=== PATIENT | female | born 1940 | race Caucasian/White ===

== ENCOUNTER 2016-05-23 10:51 | Inpatient (IN) | payer OTHER ==
[~2016-05-23] VITALS: Ht 147.3 cm; Wt 59.9 kg
[~2016-05-23 10:51] MED LIST: ALBUTEROL 3 ML3 ML INH; ANTIVERT 12.512.5 MG PO; APAP500 MG PO; ATIVAN0.5 M1 PO; ATROVENT 0.02%2.5 ML INH; BENZONATATE100 M1 PO; BREO ELLIPTA1 POW INH; CARDIZEM 180 M180 MG PO; CARDIZEM CD240 M1 PO; COLACE100 M1 PO; CRESTOR 5MG5 MG PO; DILTIAZEM HCL180 MG PO; DILTIAZEM HCL240 MG PO; DILTIAZEM HCL300 MG PO; DUONEB 3 MG/3 ML3 ML INH/SOL; FUROSEMIDE20 MG PO; HYDRODIURIL 112.5 MG PO; LORAZEPAM1 M1 PO; MECLIZINE HCL12.5 M1 PO; MIRALAX17 GM PO; ONE DAILY MULT1 EAC2 PO; PANTOPRAZOLE SO40 MG PO; PREDNISONE 10MG10 M1 PO; PREDNISONE 2.52.5 MG PO; PREDNISONE10 MG PO; PREDNISONE2.5 M1 PO; PREDNISONE2.5 MG PO; PREDNISONE5 MG PO; PRILOSEC 20MG C20 MG PO; PROVENTIL0.09 MG/Ac INH; SENNA-DOCUSATE1 EACH PO; SYMBICORT 16010.2 GM INH; TYLENOL XSTR500 MG PO; VITAMIN D NATU400 IU PO; VITAMIN D1000 IU PO; Vitamin D PO; ZOFRAN 4 MG TABL4 MG PO
--- NOTE | 2016-05-23 11:00 | NUR ---
PT BIBA FROM HOME FOR C/O DYSPNEA. PT STATES SHE HAS BEEN ON ABX SINCE MONDAY. PT STATES SHE DID NOT SLEEP ALL NIGHT BECAUSE SHE TOOK 10 BREATHING TREATMENTS. PT SAT WAS 86% UPON EMS ARRIVAL. PT WAS GIVEN NEB TREATMENT 125MG OF SOLUMEDROL AND THEN SHE BEGAN TO HAVE NAUSEA. PT WAS GIVEN ZOFRAN IV. PT HAS MAG INFUSING BY EMS.
--- NOTE | 2016-05-23 11:00 | NUR ---
PT STATES SHE IS 1 DEPENDANT USES 2.5L VIA NC PT CURRENTLY ON NC 3L SATS 95%
--- NOTE | 2016-05-23 11:07 | ED DYSPNEA/ASTHMA COMPLAINT ---
History of Present Illness General Chief Complaint: Dyspnea (COPD, CHF, Other) Stated Complaint: SOB Source: patient, family, old records, EMS Exam Limitations: no limitations Allergies Coded Allergies: Iodinated Contrast Media - Oral and (IODINATED CONTRAST MEDIA - IV DYE) ( Intermediate, HIVES, RASH 04/27/15) Penicillins (Intermediate, HIVES 04/27/15) Sulfa (Sulfonamide Antibiotics) (Intermediate, HIVES 04/27/15) methylprednisolone (Mild, "TOO MANY SIDE EFFECTS, HIGH SUGAR, LOOSE TEETH, NECK BONES" 04/27/15) Triage Note: PT BIBA FROM HOME FOR C/O DYSPNEA. PT STATES SHE HAS BEEN ON ABX SINCE MONDAY. PT STATES SHE DID NOT SLEEP ALL NIGHT BECAUSE SHE TOOK 10 BREATHING TREATMENTS. PT SAT WAS 86% UPON EMS ARRIVAL. PT WAS GIVEN NEB TREATMENT 125MG OF SOLUMEDROL AND THEN SHE BEGAN TO HAVE NAUSEA. PT WAS GIVEN ZOFRAN IV. PT HAS MAG INFUSING BY EMS. Triage Nurses Notes Reviewed? yes Onset: Abrupt Duration: day(s): (3), constant, getting worse Timing: recent history Severity: moderate, severe Activities at Onset: none Prior Episodes/Possible Cause: frequent episodes Modifying Factors: Worsens With: movement. Associated Symptoms: cough HPI: 76-year-old female with history of COPD on 2-1/2 L at baseline presents to ER brought in by ambulance complaining of progressively worsening shortness of breath nonproductive cough for the past 3 days. The patient was started on azithromycin and prednisone 4 days ago however she states her symptoms have been getting worse, she's had to increase her oxygen to 3 L at rest. She denies any chest pain leg swelling fever chills the patient states that she took 10 albuterol treatments this morning without improvement. The patient was administered Solu-Medrol 125 IV in route by EMS (DAMIAN SANTILLAN) Vital Signs & Intake/Output Vital Signs & Intake/Output Vital Signs Date Time Temp Pulse Resp B/P Pulse O2 O2 Flow FiO2 Ox Delivery Rate 05/23 1640 Nasal 3.0L Cannula 05/23 1545 94 Nasal 4.0L Cannula 05/23 1545 99.0 96 20 109/60 04 Nasal 4.0L Cannula 05/23 1459 98 Nasal 4.0L Cannula 05/23 1259 98.9 109 18 118/65 90 Nasal 4.0L Cannula 05/23 1213 93 Nasal 3.0L Cannula 05/23 1109 99.5 110 20 128/72 91 Nasal 3.0L Cannula 05/23 1057 98.0 22 97 Nasal 4.0L Cannula Reconcile Medications Azithromycin 250 MG TABLET 1 DP PO DAILY ANTIBIOTIC, INFECTION (Reported) 2 the first day followed by 1 for days 2-5 Benzonatate 100 MG CAPSULE 1 CAP PO BIDP PRN COUGH (Reported) Budesonide/Formoterol Fumarate (Symbicort 160-4.5 Mcg Inhaler) 160 MCG-4.5 MCG/ ACTUATION HFA.AER.AD 2 PUF INH BID COPD (Reported) Diltiazem HCl 30 MG TABLET 1 TAB PO DAILY PRN HEART (Reported) Diltiazem HCl (Cardizem Cd) 240 MG CAP.ER.24H 1 CAP PO DAILY HEART (Reported) Docusate Sodium (Colace) 100 MG CAPSULE 1 CAP PO QPM CONSTIPATION (Reported) Ergocalciferol (Vitamin D2) (Vitamin D2) 50,000 UNIT CAPSULE 1 CAP PO QW SUPPLEMENT (Reported) Furosemide 20 MG TABLET 1 TAB PO DAILY PRN WATER PILL (Reported) Ipratropium/Albuterol Sulfate (Iprat-Albut 0.5-3(2.5) MG/3 Ml) 0.5 MG-3 MG (2.5 MG BASE)/3 ML AMPUL.NEB 1 INH PO 4 TIMES/DAY BREATHING PROBLEMS (Reported) Lorazepam 1 MG TABLET 1 TAB PO QPM SLEEP (Reported) Lorazepam (Ativan) 0.5 MG TABLET 1 TAB PO BIDP PRN ANXIETY (Reported) Meclizine HCl 12.5 MG TABLET 1 TAB PO BID DIZZINESS (Reported) Montelukast Sodium (Singulair) 10 MG TABLET 1 TAB PO DAILY ALLERGIES ( Reported) Multivitamin (One Daily Multivitamin) 1 EACH TABLET 1 TAB PO DAILY SUPPLEMENT (Reported) Omeprazole 20 MG CAPSULE.DR 1 CAP PO DAILY PRN ACID (Reported) Polyethylene Glycol 3350 (Miralax) 17 GRAM POWD.PACK 1 PAC PO DAILY PRN CONSTIPATION (Reported) dissolve in water Prednisone 2.5 MG TABLET 1 TAB PO DAILY COPD (Reported) Sennosides/Docusate Sodium (Senna-Docusate Sodium Tablet) 8.6 MG-50 MG TABLET 1 TAB PO QPM CONSTIPATION (Reported) (NICO HOWARD,HARSHAD Up) Past History Travel History Traveled to [place] past 21 day No Medical History Any Pertinent Medical History? 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 No (DAMIAN SANTILLAN) Review of Systems Review of Systems Constitutional: Reports: see HPI. All Other Systems: Reviewed and Negative Comments Review of systems: See HPI, All other systems negative. Constitutional, no chills no fever, no malaise HEENT: No visual changes no sore throat no congestion, no ear pain Cardiovascular: No chest pain , no palpitation Skin, no jaundice no rashes, no change in skin Respiratory: dyspnea cough no sputum GI: No nausea no vomiting, no diarrhea, : No dysuria Muscle skeletal: No joint pain, no back pain, no neck pain, Neurologic: No numbness no headache Psych: No stress. Heme/endocrine: No bruising no bleeding Immunology: No lymphadenopathy, (DAMIAN SANTILLAN) Physical Exam Physical Exam General Appearance: alert, awake, moderate distress Respiratory: wheezing, respiratory distress Comments: HEENT: Normal EENT exam; PERRL, EOMI, HEAD is atraumatic. moist mucous membranes. Neck: Supple, no lymphadenopathy, normal range of motion Back: Nontender, Full range of motion Cardiovascular: Regular rate and rhythms no murmurs rubs or gallops, normal JVP Respiratory: Moderate respiratory distress. Patient speaking in full complete sentences. Wheezing bilaterally no rales Abdomen: Soft, nontender nondistended, no appreciable organomegaly. Normal bowel sounds. No rebound/guarding, Extremity: No edema, full range of motion of extremities Neuro: Alert oriented x3, motor sensory normal, There were no obvious focal neurologic abnormalities. Skin: No appreciable rash on exposed skin, skin is warm and dry. Psych: Mood and affect is normal, memory and judgment is normal. Core Measures ACS in differential dx? Yes Severe Sepsis Present: No Septic Shock Present: No (DAMIAN SANTILLAN) Progress Differential Diagnosis: asthma, AMI, bronchitis, costochondritis, CHF, COPD, musculoskeletal pain, pericarditis, pulmonary embolism, pneumonia, pneumothorax, unstable angina Diagnostic Imaging: Viewed by Me: Radiology Read. Discussed w/RAD: Radiology Read. Initial ED EKG: sinus tach at 100, no acute ST segment changes normal axis Prior EKG: unchanged (01/2015) Rhythm Strip: normal sinus rhythm (DAMIAN SANTILLAN) Plan of Care: Orders Procedure Date/time Status Regular Diet 05/23 D Active Vital Signs 05/23 1639 Active Teach/Educate 05/23 1639 Active Pain Treatment and Response 05/23 1639 Active Nutritional Intake, Monitor 05/23 1639 Active Isolation 05/23 1639 Active Intake & Output 05/23 1639 Active Patient Care Conference 05/23 1639 Active Activity/Ambulation 05/23 1639 Active TRC EVALUATION (GEN) 05/23 1441 Active STREP PNEUMO URINARY ANTIGEN 05/23 1403 Active LEGIONELLA URINARY ANTIGEN 05/23 1403 Active LOWER RESPIRATORY CULTURE 05/23 1403 Active Pathway - chart 05/23 1358 Active House Staff 05/23 1358 Active Patient Data 05/23 1358 Active Code Status 05/23 1358 Active Admit to inpatient 05/23 1323 Active Patient Data 05/23 1311 Active BLOOD CULTURE 05/23 1304 Active Intake & Output 05/23 1140 Active EKG 05/23 1127 Active RAPID VIRAL INFLUENZA A 05/23 1113 Complete ARTERIAL BLOOD GAS (GEN) 05/23 1106 Complete Telemetry/Lunchroom Aide 05/23 1106 Active TROPONIN LEVEL 05/23 1106 Complete MAGNESIUM 05/23 1106 Complete COMPREHENSIVE METABOLIC PANEL 05/23 1106 Complete CBC WITHOUT DIFFERENTIAL 05/23 1106 Complete B-TYPE NATRIURETIC PEP (BNP) 05/23 1106 Complete VTE Mechanical Prophylaxis 05/23 UNK Active Current Medications Sig/Bill Start time Last Medication Dose Stop Time Status Admin Azithromycin 500 MG DAILY 05/24 1000 AC (Zithromax) Sodium Chloride 250 ML (Normal Saline 0.9%) Ceftriaxone Sodium 1,000 MG DAILY 05/24 1000 AC (Rocephin) Methylprednisolone 40 MG BID 05/23 2199 AC (Solumedrol) Acetaminophen 325 MG Q6 PRN 05/23 1400 AC (Tylenol) Morphine Sulfate 4 MG Q4P PRN 05/23 1400 AC (Morphine) Oxycodone/ 1 TAB Q6 PRN 05/23 1400 AC Acetaminophen (Percocet) Laboratory Tests 05/23/16 1155: pH 7.33 L, pCO2 61 *H, pO2 90, HCO3 31 H, ABG O2 Sat (Measured) 95.0 L, Carboxyhemoglobin 1.2 L, O2 Concentration % 3L, O2 Delivery Method NC, Phlebotomy Draw Site RIGHT BRACHIAL 05/23/16 1125: Anion Gap 7, Estimated GFR > 60, BUN/Creatinine Ratio 16.7, Glucose 160 H, Calcium 9.2, Magnesium 2.4 H, Total Bilirubin 0.6, AST 20, ALT 38, Alkaline Phosphatase 87, Troponin I < 0.01, Mqq-F-Fptqiuygykq Pept 205 H, Total Protein 6.6, Albumin 4.0, Globulin 2.6, Albumin/Globulin Ratio 1.5, CBC w Diff NO MAN DIFF REQ, RBC 5.40, MCV 81.8, MCH 26.7 L, RDW 14.4, MPV 7.5, Gran % 82.6 H, Lymphocytes % 14.7 L, Monocytes % 2.1, Eosinophils % 0.4, Basophils % 0.2, Absolute Granulocytes 8.0 H, Absolute Lymphocytes 1.4, Absolute Monocytes 0.2, Absolute Eosinophils 0, Absolute Basophils 0, PUBS MCHC 32.6 L Microbiology 05/23 1403 URINE ROUT: Legionella Antigen - ORD 05/23 140 URINE ROUT: Streptococcus pneumoniae Antigen (M - ORD 05/23 1403 LOWER RESP: Respiratory Culture - ORD 05/23 140 LOWER RESP: Gram Stain - ORD 05/23 1307 BLOOD: Blood Culture - RECD 05/23 1300 BLOOD: Blood Culture - RECD 05/23 1125 NASOPHARYN: Influenza Virus A & B Rapid Smear - COMP Labs ordered old records reviewed patient is medicated with Solu-Medrol 125 IV in route, magnesium drip running which was given en route, douneb abg ordered. pt eval by dr pandya agrees wtih plan for bipap- pt and her daughter refusing at this time stating her co2 has been higher- most recently at [facility] feb 2016 never required in past. case d/w dr pierson pts pulm who advised can hold off bipap at this time. d/w pt and daughter her xray results rocephin 1g azithro 500mg iv ordered will admit PATIENT: PANKAJ MORALES PRESENT AGE: 76 PATIENT ACCOUNT NO: [id number] : 39 LOCATION: [facility] ORDERING PHYSICIAN: DAMIAN SAENZ SERVICE DATE: 05/23/16-110 EXAM TYPE: RAD - XRY-PORTABLE CHEST XRAY EXAMINATION: XR PORTABLE CHEST CLINICAL INFORMATION: Dyspnea COMPARISON: 01/31/2015 TECHNIQUE: Portable AP view of the chest was obtained. FINDINGS: Cardiac leads overlie the chest. Postoperative changes are seen in the right lung with a suture line noted at the right midlung. There is some degree of right-sided volume loss. Blunted right costophrenic angle suggests a small pleural effusion. Hazy opacity seen in the right mid to lower lung. No pneumothorax. The cardiomediastinal silhouette is somewhat shifted to the right, although the patient is rotated which limits overall evaluation. IMPRESSION: Small right pleural effusion. Hazy right mid to lower lung opacity could represent atelectasis or pneumonia. DICTATED BY: JUSTUS BARON MD DATE/TIME DICTATED:05/23/161241 FURNITURE REPAIRER:LEE DATE/TIME TRANSCRIBED:05/23/161241 CONFIDENTIAL, DO NOT COPY WITHOUT APPROPRIATE AUTHORIZATION. <Electronically signed in Other Vendor System> SIGNED BY: JUSTUS BARON MD 05/23 1246 (ELIZABETH SAENZ,DAMIAN) Departure Departure Time of Disposition: 1325 Disposition: STILL A PATIENT Condition: Stable Clinical Impression Primary Impression: COPD exacerbation Secondary Impressions: Hypercapnic respiratory failure, Pneumonia Referrals: DAVIAN PÉREZ MD Departure Forms: Customer Survey General Discharge Information Admission Note Spoke With: ELIAN TOWNSEND MD Documentation of Exam: Documentation of any treatments & extenuating circumstances including Concerns Regarding Discharge (functional status, medication knowledge or non-compliance, living conditions, etc.) that warrant an admission rather than observation: IV steroids and IV antibiotics patient has failed outpatient therapy with both by mouth. Patient is hypoxic despite being on home O2 premature discharge would BE medically harmful (DAMIAN SANTILLAN) PA/TOURIST AGENT Co-Sign Statement Statement: ED Attending supervision documentation- [x] I saw and evaluated the patient. I have also reviewed all the pertinent lab results and diagnostic results. I agree with the findings and the plan of care as documented in the PA's/TOURIST AGENT's documentation. shortness of breath similar to prior episodes. not responding to home nebs. poor air entry and autopeeping on exam. [] I have reviewed the ED Record and agree with the PA's/TOURIST AGENT's documentation. [] Additions or exceptions (if any) to the PAs/TOURIST AGENT's note and plan are summarized below: [] (NICO HOWARD,HARSHAD Up) Critical Care Note Critical Care Note Critical Care Time: 30-74 min (DAMIAN SANTILLAN)
[2016-05-23 11:30] LABS: ABSOLUTE BASOPHIL COUNT 0 /CUMM (0.0-0.2); ABSOLUTE EOSINOPHIL COUNT 0 /CUMM (0.0-0.7); ABSOLUTE LYMPH COUNT 1.4 /CUMM (1.2-3.4); ABSOLUTE MONOCYTE COUNT 0.2 /CUMM (0.10-0.60); BASOPHIL % 0.2 % (0.0-2.0); EOSINOPHIL % 0.4 % (0-5); GRANULOCYTE % 82.6 % (42.2-75.2); HEMATOCRIT 44.2 % (37-47); MEAN CORPUSCULAR HGB 26.7 PG (27.0-31.0); MEAN CORPUSCULAR HGB CONC 32.6 G/DL (33.0-37.0); MEAN CORPUSCULAR VOLUME 81.8 FL (81.0-99.0); MEAN PLATELET VOLUME 7.5 FL (7.4-10.4); PLATELET COUNT 253 /CUMM (130-400); RBC DISTRIBUTION WIDTH 14.4 % (11.5-14.5); WHITE BLOOD CELL COUNT 9.7 /CUMM (4.8-10.8)
--- NOTE | 2016-05-23 12:12 | NUR ---
IV INITIATED, LABS DRAWN AND SENT. PT ON TELE MONITOR. PT MEDICATED DOCUMENTED ON EMAR
[2016-05-23] MEDS ORDERED: DILTIAZEM HCL30 M1 PO (12:22)
[2016-05-23] MEDS ORDERED: SINGULAIR10 M1 PO (12:23)
[2016-05-23] MEDS ORDERED: VITAMIN D250000 UNIT PO (12:24)
[2016-05-23] MEDS ORDERED: FUROSEMIDE20 M1 PO (12:24)
[2016-05-23] MEDS ORDERED: IPRAT-ALBUT 0.5-3 ML PO (12:26)
[2016-05-23] MEDS ORDERED: AZITHROMYCIN250 M1 PO (12:26)
[2016-05-23] MEDS ORDERED: OMEPRAZOLE20 M2 PO (12:31)
[2016-05-23] MEDS ORDERED: MIRALAX17 G1 PO (12:32)
--- NOTE | 2016-05-23 12:46 | RADIOLOGY REPORT ---
EXAMINATION: XR PORTABLE CHEST CLINICAL INFORMATION: Dyspnea COMPARISON: 01/31/2015 TECHNIQUE: Portable AP view of the chest was obtained. FINDINGS: Cardiac leads overlie the chest. Postoperative changes are seen in the right lung with a suture line noted at the right midlung. There is some degree of right-sided volume loss. Blunted right costophrenic angle suggests a small pleural effusion. Hazy opacity seen in the right mid to lower lung. No pneumothorax. The cardiomediastinal silhouette is somewhat shifted to the right, although the patient is rotated which limits overall evaluation. IMPRESSION: Small right pleural effusion. Hazy right mid to lower lung opacity could represent atelectasis or pneumonia.
--- NOTE | 2016-05-23 13:00 | NUR ---
PT STATES BREATHING BETTER, SOME AUDIBLE WHEEZING NOTED
--- NOTE | 2016-05-23 13:42 | Cons- Pulmonary ---
General Information and HPI Consulting Request Date of Consult: 05/23/16 Requested By: Dr. Ennis Reason for Consult: COPD exacerbation Source of Information: patient Exam Limitations: no limitations History of Present Illness: 76 year old woman known to me from the office and previous admissions. Since Monday 101 fever, dyspnea, wheezing, cough, non productive. Low o2 saturations, chronic hypercarbia and hypoxemia. On oxygen and steroids at home. Uses bronchodilators. Duonebs. Symbicort 2 puffs BID with rinsing of the mouth. Continued on steroids. +cough dry, helped with Robitussin DM +dyspnea on exertion primarily and at rest intermittently She has been taking Robitussin DM with some relief of her coughing symptoms. She is unable to attend pulmonary rehab. Declined Daliresp given side effect profile. Oxygen via nasal cannula 2.5LNC. Prednisone dose varies, currently 2.5mg daily at baseline. No sick contacts, no travel history. No nvdc. No cp. Feels better since admission. CXR with right sided opacification. Allergies/Medications Allergies: Coded Allergies: Iodinated Contrast Media - Oral and (IODINATED CONTRAST MEDIA - IV DYE) ( Intermediate, HIVES, RASH 04/27/15) Penicillins (Intermediate, HIVES 04/27/15) Sulfa (Sulfonamide Antibiotics) (Intermediate, HIVES 04/27/15) methylprednisolone (Mild, "TOO MANY SIDE EFFECTS, HIGH SUGAR, LOOSE TEETH, NECK BONES" 04/27/15) Home Med List: Azithromycin 250 MG TABLET 1 DP PO DAILY ANTIBIOTIC, INFECTION (Reported) 2 the first day followed by 1 for days 2-5 Benzonatate 100 MG CAPSULE 1 CAP PO BIDP PRN COUGH (Reported) Budesonide/Formoterol Fumarate (Symbicort 160-4.5 Mcg Inhaler) 160 MCG-4.5 MCG/ ACTUATION HFA.AER.AD 2 PUF INH BID COPD (Reported) Diltiazem HCl 30 MG TABLET 1 TAB PO DAILY PRN HEART (Reported) Diltiazem HCl (Cardizem Cd) 240 MG CAP.ER.24H 1 CAP PO DAILY HEART (Reported) Docusate Sodium (Colace) 100 MG CAPSULE 1 CAP PO QPM CONSTIPATION (Reported) Ergocalciferol (Vitamin D2) (Vitamin D2) 50,000 UNIT CAPSULE 1 CAP PO QW SUPPLEMENT (Reported) Furosemide 20 MG TABLET 1 TAB PO DAILY PRN WATER PILL (Reported) Ipratropium/Albuterol Sulfate (Iprat-Albut 0.5-3(2.5) MG/3 Ml) 0.5 MG-3 MG (2.5 MG BASE)/3 ML AMPUL.NEB 1 INH PO 4 TIMES/DAY BREATHING PROBLEMS (Reported) Lorazepam 1 MG TABLET 1 TAB PO QPM SLEEP (Reported) Lorazepam (Ativan) 0.5 MG TABLET 1 TAB PO BIDP PRN ANXIETY (Reported) Meclizine HCl 12.5 MG TABLET 1 TAB PO BID DIZZINESS (Reported) Montelukast Sodium (Singulair) 10 MG TABLET 1 TAB PO DAILY ALLERGIES ( Reported) Multivitamin (One Daily Multivitamin) 1 EACH TABLET 1 TAB PO DAILY SUPPLEMENT (Reported) Omeprazole 20 MG CAPSULE.DR 1 CAP PO DAILY PRN ACID (Reported) Polyethylene Glycol 3350 (Miralax) 17 GRAM POWD.PACK 1 PAC PO DAILY PRN CONSTIPATION (Reported) dissolve in water Prednisone 2.5 MG TABLET 1 TAB PO DAILY COPD (Reported) Sennosides/Docusate Sodium (Senna-Docusate Sodium Tablet) 8.6 MG-50 MG TABLET 1 TAB PO QPM CONSTIPATION (Reported) Current Medications: Current Medications Sig/Bill Start time Last Medication Dose Route Stop Time Status Admin Albuterol Sulfate 3 ML ONCE ONE 05/23 1115 DC 05/23 INH 05/23 1116 1153 Azithromycin 500 MG ONCE ONE 05/23 1300 AC 05/23 Sodium Chloride 250 ML IV 05/23 1359 1329 Ceftriaxone Sodium 1,000 MG ONCE ONE 05/23 1300 DC 05/23 IV 05/23 1301 1310 Ceftriaxone Sodium 0 .STK-MED ONE 05/23 1257 DC .ROUTE Diphenhydramine HCl 25 MG ONCE ONE 05/23 1145 DC 05/23 IV 05/23 1146 1203 Diphenhydramine HCl 0 .STK-MED ONE 05/23 1136 DC .ROUTE Ipratropium [place] 2.5 ML ONCE ONE 05/23 1115 DC 05/23 INH 05/23 1116 1153 Ondansetron HCl 4 MG ONCE ONE 05/23 1130 DC 05/23 IV 05/23 1131 1131 Ondansetron HCl 0 .STK-MED ONE 05/23 1128 DC .ROUTE Review of Systems Comments 18 point Review of Systems performed. Positive and negative pertinent findings are deliniated in the HPI. Otherwise the ROS is negative. 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 self Services at Home: Nursing, Oxygen Primary Language: Surinamese ETOH Use: occasional use Illicit Drug Use: denies illicit drug use Functional Ability ADLs Independent: dressing, eating, toileting, bathing. Ambulation: independent IADLs Independent: shopping, housework, finances, food prep, telephone, transportation , medication admin. Exam & Diagnostic Data Last 24 Hrs of Vital Signs/I&O Vital Signs Date Time Temp Pulse Resp B/P Pulse O2 O2 Flow FiO2 Ox Delivery Rate 05/23 1259 98.9 109 18 118/65 90 Nasal 4.0L Cannula 05/23 1213 93 Nasal 3.0L Cannula 05/23 1109 99.5 110 20 128/72 91 Nasal 3.0L Cannula 05/23 1057 98.0 22 97 Nasal 4.0L Cannula Intake & Output 05/23 1600 05/23 0800 05/23 0000 Intake Total Output Total Balance Patient 132 lb Weight Physical Exam Other Physical Findings: General - Alert, awake and oriented, mild distress HEENT - normocephalic, atraumatic Cardiovascular - S1, S2 Lungs - bilateral wheezing, prolonged end expiratory phase Abdomen - soft, bowel sounds positive, no tenderness Extremities - without edema or cyanosis Last 48 Hrs of Labs/Eduardo: Laboratory Tests 05/23/16 1155: pH 7.33 L, pCO2 61 *H, pO2 90, HCO3 31 H, ABG O2 Sat (Measured) 95.0 L, Carboxyhemoglobin 1.2 L, O2 Concentration % 3L, O2 Delivery Method NC, Phlebotomy Draw Site RIGHT BRACHIAL 05/23/16 1125: Anion Gap 7, Estimated GFR > 60, BUN/Creatinine Ratio 16.7, Glucose 160 H, Calcium 9.2, Magnesium 2.4 H, Total Bilirubin 0.6, AST 20, ALT 38, Alkaline Phosphatase 87, Troponin I < 0.01, Wna-H-Ocmmrharbtc Pept 205 H, Total Protein 6.6, Albumin 4.0, Globulin 2.6, Albumin/Globulin Ratio 1.5, CBC w Diff NO MAN DIFF REQ, RBC 5.40, MCV 81.8, MCH 26.7 L, RDW 14.4, MPV 7.5, Gran % 82.6 H, Lymphocytes % 14.7 L, Monocytes % 2.1, Eosinophils % 0.4, Basophils % 0.2, Absolute Granulocytes 8.0 H, Absolute Lymphocytes 1.4, Absolute Monocytes 0.2, Absolute Eosinophils 0, Absolute Basophils 0, PUBS MCHC 32.6 L Microbiology 05/23 1125 NASOPHARYN: Influenza Virus A & B Rapid Smear - COMP Assessment/Plan Impression/Plan: Impression 76 year old woman known to me from the office and previous admissions. Since Monday 101 fever, dyspnea, wheezing, cough, non productive. Low o2 saturations, chronic hypercarbia and hypoxemia. On oxygen and steroids at home. Uses bronchodilators. Duonebs. Symbicort 2 puffs BID with rinsing of the mouth. Continued on steroids. +cough dry, helped with Robitussin DM +dyspnea on exertion primarily and at rest intermittently She has been taking Robitussin DM with some relief of her coughing symptoms. She is unable to attend pulmonary rehab. Declined Daliresp given side effect profile. Oxygen via nasal cannula 2.5LNC. Prednisone dose varies, currently 2.5mg daily at baseline. No sick contacts, no travel history. No nvdc. No cp. Feels better since admission. CXR with right sided opacification. * Acute on chronic hypercarbic and-toxemic respiratory failure secondary to COPD exacerbation likely secondary to either bronchitis or right lower lobe community -acquired pneumonia * Diabetes/steroid-induced hyperglycemia Plan -TRC nebs -Begin ceftriaxone and Zithromax, Zithromax has been already taken orally today -Sputum culture -Legionella and strep antigens -Solu-Medrol 40 mg IV every 12, has already received 125 a steroids today and would give 40 mg only this evening -Monitor fingersticks closely given steroid induced hyperglycemia -resume home meds -spo2 goal >88% DVT prophylaxis at all times Discussed with housestaff Consult Acknowledgment - Thank you for your consult request.
--- NOTE | 2016-05-23 14:30 | NUR ---
HOUSESTAFF AT BEDSIDE. RT CALLED FOR NEB TX
--- NOTE | 2016-05-23 14:32 | NUR ---
PT HAS BED ASSIGNMENT [id number]. RN NOTIFIED.
--- NOTE | 2016-05-23 15:01 | History & Physical ---
SOFIYA HOWARD,[facility] 05/23/16 1500: General Information and HPI MD Statement: I have seen and personally examined PANKAJ CHASE and documented this H&P. The patient is a 76 year old F who presented with a patient stated chief complaint of [nonproductive cough and shortness of breath for 4 days]. Source of Information: patient Exam Limitations: no limitations History of Present Illness: Mr. Chase is a 76 year old female with past medical history of pulmonary hypertension, chronic COPD on home oxygen of 2.5L, chronic steroids 2.5mg daily , multifocal atrial tachycardia on diltiazem presented to ED with chief complaint of shortness of breath, nonproductive cough, sore throat for the last 4 days. Most of the history was obtained from the daughter at bedside, she reported that her mother started to have nonproductive cough and sore throat on associated with low-grade fever, chills, night sweats, she visited the primary care physician yesterday who prescribed her Z-Hever, his symptoms didn't improve and decided to come today for evaluation. Patient used to follow at COPD clinic years ago, stopped following because her case is so advanced (per daughter), patient was admitted [facility] February 2016 for COPD exacerbation, discharged to short-term rehabilitation for 2 weeks. Allergies/Medications Allergies: Coded Allergies: Iodinated Contrast Media - Oral and (IODINATED CONTRAST MEDIA - IV DYE) ( Intermediate, HIVES, RASH 04/27/15) Penicillins (Intermediate, HIVES 04/27/15) Sulfa (Sulfonamide Antibiotics) (Intermediate, HIVES 04/27/15) methylprednisolone (Mild, "TOO MANY SIDE EFFECTS, HIGH SUGAR, LOOSE TEETH, NECK BONES" 04/27/15) Home Med list Azithromycin 250 MG TABLET 1 DP PO DAILY ANTIBIOTIC, INFECTION (Reported) 2 the first day followed by 1 for days 2-5 Benzonatate 100 MG CAPSULE 1 CAP PO BIDP PRN COUGH (Reported) Budesonide/Formoterol Fumarate (Symbicort 160-4.5 Mcg Inhaler) 160 MCG-4.5 MCG/ ACTUATION HFA.AER.AD 2 PUF INH BID COPD (Reported) Diltiazem HCl 30 MG TABLET 1 TAB PO DAILY PRN HEART (Reported) Diltiazem HCl (Cardizem Cd) 240 MG CAP.ER.24H 1 CAP PO DAILY HEART (Reported) Docusate Sodium (Colace) 100 MG CAPSULE 1 CAP PO QPM CONSTIPATION (Reported) Ergocalciferol (Vitamin D2) (Vitamin D2) 50,000 UNIT CAPSULE 1 CAP PO QW SUPPLEMENT (Reported) Furosemide 20 MG TABLET 1 TAB PO DAILY PRN WATER PILL (Reported) Ipratropium/Albuterol Sulfate (Iprat-Albut 0.5-3(2.5) MG/3 Ml) 0.5 MG-3 MG (2.5 MG BASE)/3 ML AMPUL.NEB 1 INH PO 4 TIMES/DAY BREATHING PROBLEMS (Reported) Lorazepam 1 MG TABLET 1 TAB PO QPM SLEEP (Reported) Lorazepam (Ativan) 0.5 MG TABLET 1 TAB PO BIDP PRN ANXIETY (Reported) Meclizine HCl 12.5 MG TABLET 1 TAB PO BID DIZZINESS (Reported) Montelukast Sodium (Singulair) 10 MG TABLET 1 TAB PO DAILY ALLERGIES ( Reported) Multivitamin (One Daily Multivitamin) 1 EACH TABLET 1 TAB PO DAILY SUPPLEMENT (Reported) Omeprazole 20 MG CAPSULE.DR 1 CAP PO DAILY PRN ACID (Reported) Polyethylene Glycol 3350 (Miralax) 17 GRAM POWD.PACK 1 PAC PO DAILY PRN CONSTIPATION (Reported) dissolve in water Prednisone 2.5 MG TABLET 1 TAB PO DAILY COPD (Reported) Sennosides/Docusate Sodium (Senna-Docusate Sodium Tablet) 8.6 MG-50 MG TABLET 1 TAB PO QPM CONSTIPATION (Reported) Past History Travel History Traveled to [place] past 21 day No Medical History Neurological: dizziness EENT: NONE Cardiovascular: diastolic CHF, hyperlipidemia, ATRIAL TACYCARDIA Respiratory: COPD, obstructive sleep apnea, USES NASAL O2 AT 2.5 L Gastrointestinal: NONE Hepatic: NONE Renal: NONE Musculoskeletal: osteoporosis Psychiatric: NONE Endocrine: NONE Blood Disorders: NONE Cancer(s): NONE PILOT SAFETY INSPECTOR/Reproductive: NONE History of MRSA: No History of VRE: No History of CDIFF: No Influenza Vaccine: 11/27/14 Surgical History Surgical History: RLL PARTIAL LOBECTOMY R/T GRANULOMAS Past Family/Social History Family History Relations & Conditions if any FATHER FH myocardial infarction male first degree age known MOTHER FH: diabetes mellitus Psychosocial History Who Do You Live With? self Services at Home: Nursing, Oxygen Primary Language: Italian ETOH Use: occasional use Illicit Drug Use: denies illicit drug use Functional Ability ADLs Independent: dressing, eating, toileting, bathing. Ambulation: independent IADLs Independent: shopping, housework, finances, food prep, telephone, transportation , medication admin. Review of Systems Review of Systems Constitutional: Reports: see HPI. Exam & Diagnostic Data Last 24 Hrs of Vital Signs/I&O Vital Signs Date Time Temp Pulse Resp B/P Pulse O2 O2 Flow FiO2 Ox Delivery Rate 05/23 1640 Nasal 3.0L Cannula 05/23 1640 98.1 92 22 122/60 90 Nasal 3.0L Cannula 05/23 1545 94 Nasal 4.0L Cannula 05/23 1545 99.0 96 20 109/60 04 Nasal 4.0L Cannula 05/23 1459 98 Nasal 4.0L Cannula 05/23 1259 98.9 109 18 118/65 90 Nasal 4.0L Cannula 05/23 1213 93 Nasal 3.0L Cannula 05/23 1109 99.5 110 20 128/72 91 Nasal 3.0L Cannula 05/23 1057 98.0 22 97 Nasal 4.0L Cannula Intake & Output 05/23 1600 05/23 0800 05/23 0000 Intake Total Output Total 100 Balance -100 Output, Urine 100 Patient 59.874 kg Weight Physical Exam General Appearance Alert, Oriented X3, Cooperative, No Acute Distress Skin No Rashes, No Breakdown, No Significant Lesion HEENT Atraumatic, PERRLA, EOMI, Mucous Membr. moist/pink Neck Supple, No JVD Cardiovascular Regular Rate, Normal S1, Normal S2, No Murmurs Lungs bilateral decreased air entry Diffuse rhonchi and wheeze Abdomen Normal Bowel Sounds, Soft, No Tenderness Neurological Normal Speech, Strength at 5/5 X4 Ext, Normal Tone, Sensation Intact, Cranial Nerves 3-12 NL, Reflexes 2+ Extremities No Clubbing, No Cyanosis, No Edema, Normal Pulses Assessment/Plan Assessment: Mr. Chase is a 76 year old female with past medical history of pulmonary hypertension, chronic COPD on home oxygen of 2.5L, chronic steroids 2.5mg daily , multifocal atrial tachycardia on diltiazem presented to ED with chief complaint of shortness of breath. On admission Vital signs Temperature 98.9, pulse 109, blood pressure 118/65, respiratory rate 18 with saturation 90% on 4 L nasal cannula Labs CBC WBC 9.7, H&H 14.4/44.2, sodium 135, potassium 4.2, chloride 95, bicarbonate 33, BUN 10, creatinine 0.6, ABG pH 7.33, PCO2 61, PO2 90, bicarbonate 31 Chest x-ray showed IMPRESSION: Small right pleural effusion. Hazy right mid to lower lung opacity could represent atelectasis or pneumonia. Problem list #COPD exacerbation #Community-acquired pneumonia #Acute hypoxic hypercapnic respiratory failure #Multifocal atrial tachycardia #COPD exacerbation #Community-acquired pneumonia #Acute hypoxic hypercapnic respiratory failure -IV Solu-Medrol 40 mg twice a day -Continue ceftriaxone and azithromycin Day #1 -TRC -Sputum culture -Blood culture -Urine Legionella and Streptococcus antigen -Dr. Guan consultation was obtained, thanks recommendation -Continue nebs and inhalers #Multifocal atrial tachycardia -Continue Diltiazem 240 mg daily -Obtain cardiology consultation to Dr. Turner, was placed DVT prophylaxis Lovenox Code full Diet heart healthy Consultation pulmonology and cardiology As Ranked By This Provider Problem List: 1. COPD EXACERBATION 2. Hypercapnic respiratory failure 3. Pneumonia Core Measures/Miscellaneous Acute Coronary Syndrome ACS Diagnosis: No Cerebrovascular Accident CVA/TIA Diagnosis: No Congestive Heart Failure CHF Diagnosis: No Venous Thromboembolism VTE Risk Factors: Age > 40 No [facility] VTE prophylaxis d/t: No contraindications No VTE Pharm Prophylaxis d/t: No contraindications VTE Diagnosis: No VTE Type: NONE VTE Confirmed by (Test): NONE Severe Sepsis Severe Sepsis Present: No Septic Shock Septic Shock Present: No Miscellaneous Documentation Attending Case Discussed With: MUSHTAQ MCCULLOUGH MD Primary Care Physician: Danie GUILLEN MD Patient sees these Specialists Pulmonology, cardiology Level of Patient Care: General Medicine [facility] 05/23/16 1711: Resident Review Statement Resident Statement: examined this patient, discussed with internet cafe manager Other Findings: Patient is a 76-year-old female with past medical history of hypertension, chronic COPD on home oxygen 2.5 L, chronic steroids prednisone 2.5 mg, multifocal atrial tachycardia on Cardizem, ex-smoker (1 per day for 50 years , quit 10 years ago )who presented to the ER with a chief complaint of cough, wheezing and worsening shortness of breath after failing outpatient treatment with azithromycin. Patient states that she started feeling sick on with a scratchy throat. On Monday she spiked a fever of 101, had worsening shortness of breath, nonproductive cough, dyspnea, and felt very sick. The visiting nurse reported her symptoms to her daughter who called her PCP Jose Guillen MD and he prescribed azithromycin. Patient got the medication filled and has been taking it since Monday with no improvement in her symptoms. See reports fevers, chills, night sweats, dyspnea on exertion and rest intermittently. Her cough is nonproductive. She reports Robitussin-DM causes relief in her cough symptoms. Denies any nausea or vomiting, diarrhea, no sick contacts, no recent travel. Patient also reports that her sugars often get out of control when she is on IV steroids. Recent hospitalization for COPD exacerbation at [facility] in February. She received a flu shot this year. At baseline ,she has long standing history of COPD and follows up with Dr. Guan. She is unable to attend pulmonary rehabilitation. Has declined Daliresp given side effects. She is very particular in terms of her medications and their timings. She also has history of heart failure and follows up with Dr. Turner. She takes Lasix 20 mg on and off depending on edema in her legs. She takes Cardizem 240 mg daily and 30 mg when necessary if she feels palpitations. Lives alone and has visiting nursing services at home. In the ER vitals temperature 90.8, pulse 110, respiration 22, blood pressure 128 /72 saturating 97% on nasal cannula 4 L. She had desatted to 8 6% upon arrival. Labs showed no white count, sodium 135, carbon dioxide 33, magnesium 2.4, proBNP 25, troponins negative. Blood gas: 7.33/61/90 Chest x-ray: Small right-sided pleural effusion. He was a right mid to lower lobe opacity? Atelectasis/pneumonia. Physical exam: Gen.: Awake, alert, oriented 3, moderate distress, using accessory muscles for respiration. HEENT: PERRLA, EOMI, no JVD Lungs: Bilateral wheezing, rhonchi Abdomen: Soft, bowel sounds positive, no tenderness guarding or rigidity Extremities: No edema, pulses intact Plan: 1. Acute hypoxic hypercarbic respiratory likely secondary to COPD exacerbation versus developing pneumonia. Rapid flu negative in the ER. -Admit to [facility] -Vitals every shift -Try to maintain saturation above 88% -TRC nebs [id number] -No ABGs/BiPAP's needed -Continue home medications Symbicort 2 puffs twice a day with rinsing of mouth -Patient received 125 mg IV Solu Medrol in the ED. We will continue 40 IV twice a day starting this evening. -Received IV ceftriaxone and azithromycin in the ED. Continue the same pending cultures -Continue Robitussin-DM for cough -Continue Symbicort and Singular. -We will HOLD home dose of prednisone 2.5 mg -Blood culture/pertinent cultures -Urine strep and Legionella -Pulmonology consult with Dr. Guan 2. Diabetes mellitus -3 times a day Accu-Cheks -NovoLog sliding scale -Diabetic diet -History of steroid-induced hyperglycemia 3. Heart failure with preserved ejection fraction: Echo 2014 showed stage I diastolic dysfunction with EF of more than 65% -Continue Lasix 20 mg when necessary as taken by the patient 4. Multifocal atrial tachycardia: -Continue home medications Cardizem 240 mg daily and 30 mg when necessary -Courtsey call to Dr. Turner Continue all other home meds Diabetic diet Full code Subcutaneous Lovenox for DVT prophylaxis Mild pain pathway
--- NOTE | 2016-05-23 15:03 | NUR ---
FOOD TRAY ORDERED
--- NOTE | 2016-05-23 16:18 | NUR ---
REPORT RECEIVED FROM NOE HOBBS PER REPORT FROM NOE HOBBS SHE HAS ALREADY GIVEN REPORT TO NOE ESCAMILLA ON FLOOR BUT PATIENT REQUIRES DOSE OF HER REGULAR MEDICATION MECLIZINE 12.5 MG FOR CHRONIC VERTIGO PRIOR TO TRANSPORT. HOUSESTAFF PRESENT IN DEPARTMENT AND MADE AWARE OF NEED FOR SAME. NO NEW ORDER FROM HOUSESTAFF OF THIS WRITING, DISCUSSED SAME WITH NOE MONROE AND DANY JOHNSON WHO PUT SAME ORDER IN. PT MEDICATED WITH PO MECLIZINE 12.5 MG AT THIS TIME AND TRANSPORT BOOKED.
--- NOTE | 2016-05-23 16:36 | NUR ---
PT TRANSPORTED AT THIS TIME
[2016-05-23 16:40] VITALS: BP 122/60
--- NOTE | 2016-05-23 17:17 | Admission Certification ---
Admission Certification Certification Statement - As attending physician, I certify that at the time of - admission, based on clinical presentation, severity of - symptoms, need for further diagnostic testing and - therapeutic interventions, and risk of adverse outcomes - without in-hospital treatment, in my clinical assessment, - this patient requires an acute hospital stay for a minimum - of two nights or longer. I have also considered psychsocial - factors such as support system, advanced age, financial - issues, cognitive issues, and failed out-patient treatments, - past re-admission history, safety of patient, and lack of - compliance as applicable. Specific rationale supporting this admission is: COPD exacerbation and pneumonia
--- NOTE | 2016-05-23 17:22 | PN- Att Addend ---
Attending MD Review Statement Attending Statement Attending MD Statement: examined this patient, discuss w/resident/PA/COMMUNITY ADMINISTRATOR, agreed w/resident/PA/COMMUNITY ADMINISTRATOR, discussed with family, reviewed EMR data (avail), discussed w/ nursing Attending Assessment/Plan: Laboratory Tests 05/23/16 1155: pH 7.33 L, pCO2 61 *H, pO2 90, HCO3 31 H, ABG O2 Sat (Measured) 95.0 L, Carboxyhemoglobin 1.2 L, O2 Concentration % 3L, O2 Delivery Method NC, Phlebotomy Draw Site RIGHT BRACHIAL 05/23/16 1125: Anion Gap 7, Estimated GFR > 60, BUN/Creatinine Ratio 16.7, Glucose 160 H, Calcium 9.2, Magnesium 2.4 H, Total Bilirubin 0.6, AST 20, ALT 38, Alkaline Phosphatase 87, Troponin I < 0.01, Ffe-P-Jgwixgbbqvo Pept 205 H, Total Protein 6.6, Albumin 4.0, Globulin 2.6, Albumin/Globulin Ratio 1.5, CBC w Diff NO MAN DIFF REQ, RBC 5.40, MCV 81.8, MCH 26.7 L, RDW 14.4, MPV 7.5, Gran % 82.6 H, Lymphocytes % 14.7 L, Monocytes % 2.1, Eosinophils % 0.4, Basophils % 0.2, Absolute Granulocytes 8.0 H, Absolute Lymphocytes 1.4, Absolute Monocytes 0.2, Absolute Eosinophils 0, Absolute Basophils 0, PUBS MCHC 32.6 L Microbiology 05/23 1125 NASOPHARYN: Influenza Virus A & B Rapid Smear - COMP Vital Signs Date Time Temp Pulse Resp B/P Pulse O2 O2 Flow FiO2 Ox Delivery Rate 05/23 1640 Nasal 3.0L Cannula 05/23 1545 94 Nasal 4.0L Cannula 05/23 1545 99.0 96 20 109/60 04 Nasal 4.0L Cannula 05/23 1459 98 Nasal 4.0L Cannula 05/23 1259 98.9 109 18 118/65 90 Nasal 4.0L Cannula 05/23 1213 93 Nasal 3.0L Cannula 05/23 1109 99.5 110 20 128/72 91 Nasal 3.0L Cannula 05/23 1057 98.0 22 97 Nasal 4.0L Cannula 76-year-old female with severe COPD on home oxygen at 2.5 L on chronic steroids at 2.5 mg presented to the ER with chief complaint of scratchy cough or for 5 days along with weakness and wheezing. Patient was recently given Z-Hever by PCP which start which she took first dose on Monday morning. Patient also has significant past medical history of hypertension, multifocal atrial tachycardia on Cardizem and diabetes mellitus on metformin. Patient in ER was found to have wheezing and on chest x-ray was found to have questionable opacity suggestive of pneumonia. She also had an ABG done in-the- ER which showed a PCO2 of 61. And she was found to have tachycardia with rates in 110. In the emergency department she got a Solu-Medrol dose of 125 mg and was also given 1 dose of 1 g ceftriaxone. Patient was also given DuoNeb treatment and she already had taken the dose of Zithromax this morning so no more Zithromax was given today. Assessment and plan #1 acute on chronic hypoxic and hypercapnic respiratory failure in patient with the severe COPD. We'll continue with oxygen as well as steroids. We will put her on Solu-Medrol 40 mg IV every 12 hours and will continue with DuoNeb's. Patient seen by mail processing machine operator Dr. Guan. Will continue to follow on their recommendations. Diabetes mellitus-we'll put her on sliding scale insulin and will start her on diabetic diet and will follow up on Accu-Cheks. Pneumonia-likely community-acquired pneumonia, we will continue her on ceftriaxone and Zithromax. Discussed with patient as well as family at bedside the care plan .
--- NOTE | 2016-05-23 19:54 | NUR ---
PT ARRIVED TO FLOOR AT 1640 FROM ER VIA STRETCHER. PT TRANSFERRED OVER TO HOSP BED. PT A/V/OX3. ON 3LNC, SAT 90%. INSP & EXP WHEEZES NOTED THROUGHOUT LUNGS. EXERTIONAL SOB. PT ON 2.5LNC BASELINE. LAST BM 05/22/16. SKIN INTACT. PT DENIES ANY PAIN. DAUGHTER AT BEDSIDE. 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 NOTIFIED OF THAT, ACCUCHECK PERFORMED. VSS. FLU UTD. NEED SPUTUM CULTURE, PT HAS NONPRODUCTIVE COUGH. #20 RFA FLUSHING EASILY. ORIENTED TO CALL [facility], ROOM & SURROUNDINGS. WILL CONTINUE TO MONITOR.
[2016-05-23 22:06] VITALS: BP 108/50
--- NOTE | 2016-05-23 22:13 | NUR ---
PT STATES SHE IS UNABLE TO HAVE IV PUSH SOLUMEDEROL DUE TO SIDE EFFECTS SUCH GETTING JITTERY & IMPULSIVE MOVEMENTS. NOTIFIED DIGITAL PRODUCER LORETO OF THIS. PER PHARMACY, OK TO DILUTE 40MG IV SOLUMEDROL IN 50ML NS BAG & RUN THROUGH PUMP. DIGITAL PRODUCER LORETO AWARE AND OK WITH ORDER. WILL CONTINUE TO MONITOR.
--- NOTE | 2016-05-23 22:17 | NUR ---
PT BLOOD GLUCOSE 295 AT 2100. PT IS NOT A DIABETIC AND ONLY CHECKS BLOOD GLUCOSE/ADMINISTERS INSULIN WHEN ON STEROIDS. CERTIFIED ALCOHOL COUNSELOR LORETO AWARE. NO NEW ORDERS AT THIS TIME. WILL CONTINUE TO MONITOR.
[2016-05-24 07:14] VITALS: BP 100/60
--- NOTE | 2016-05-24 07:24 | PN- Housestaff ---
See Addendum Subjective Follow-up For: #COPD exacerbation #Community-acquired pneumonia #Acute hypoxic hypercapnic respiratory failure #Multifocal atrial tachycardia Subjective: Patient was seen and examined this morning, no overnight events reported by the nurse or the patient. Vital signs are stable, MAXIMUM TEMPERATURE 99.5, heart rate 92, patient is back to baseline oxygen supplementation 2.5 saturation 90%. Patient continues to have dry cough, reports chills and night sweats but denies fever. Shortness of breath improved to be on exertion only. Patient reports palpitation, nausea, denies chest pain, vomiting, abdominal pain, diarrhea. She reports low oral intake as well because of low appetite. Review of Systems Constitutional: Reports: see HPI. Objective Last 24 Hrs of Vital Signs/I&O Vital Signs Date Time Temp Pulse Resp B/P Pulse O2 O2 Flow FiO2 Ox Delivery Rate 05/24 0829 90 Nasal 2.5L Cannula 05/24 0800 Nasal 2.5L Cannula 05/24 0714 97.9 92 20 100/60 93 Nasal 2.5L Cannula 05/24 0510 93 Nasal 2.5L Cannula 05/24 0145 91 Nasal 2.5L Cannula 05/24 0000 98 Nasal 2.5L Cannula 05/23 2206 98.6 85 20 108/50 98 Nasal 3.0L Cannula 05/23 2158 Nasal 2.5L Cannula 05/23 1640 Nasal 3.0L Cannula 05/23 1640 98.1 92 22 122/60 90 Nasal 3.0L Cannula 05/23 1545 94 Nasal 4.0L Cannula 05/23 1545 99.0 96 20 109/60 04 Nasal 4.0L Cannula 05/23 1459 98 Nasal 4.0L Cannula 05/23 1259 98.9 109 18 118/65 90 Nasal 4.0L Cannula 05/23 1213 93 Nasal 3.0L Cannula 05/23 1109 99.5 110 20 128/72 91 Nasal 3.0L Cannula Intake & Output 05/24 1600 05/24 0800 05/24 0000 Intake Total 0 680 Output Total 0 750 Balance 0 -70 Intake, IV 0 80 Intake, Oral 0 600 Number 0 Bowel Movements Output, Urine 0 750 Patient 59.874 kg Weight Physical Exam General Appearance: Alert, Oriented X3, Cooperative, No Acute Distress Skin: No Rashes, No Breakdown, No Significant Lesion HEENT: Atraumatic, PERRLA, Mucous Membr. moist/pink Neck: Supple, No JVD Cardiovascular: Regular Rate, Normal S1, Normal S2, No Murmurs Lungs: BILATERAL DECREASE AIR ENTERY AND DIFFUSE WHEEZE Abdomen: Normal Bowel Sounds, Soft, No Tenderness Neurological: Normal Gait, Normal Speech, Strength at 5/5 X4 Ext, Normal Tone, Sensation Intact, Cranial Nerves 3-12 NL, Reflexes 2+ Extremities: No Clubbing, No Cyanosis, No Edema, Normal Pulses Assessment/Plan Assessment: Mr. Chase is a 76 year old female with past medical history of pulmonary hypertension, chronic COPD on home oxygen of 2.5L, chronic steroids 2.5mg daily , multifocal atrial tachycardia on diltiazem presented to ED with chief complaint of shortness of breath. Chest x-ray showed IMPRESSION: Small right pleural effusion. Hazy right mid to lower lung opacity could represent atelectasis or pneumonia. Problem list #COPD exacerbation #Community-acquired pneumonia #Acute hypoxic hypercapnic respiratory failure #Multifocal atrial tachycardia #COPD exacerbation #Community-acquired pneumonia #Acute hypoxic hypercapnic respiratory failure -Improved, patient is back to baseline oxygen supplementation 2.5 with saturation 90% -Decrease to IV Solu-Medrol 30 mg twice a day -Continue ceftriaxone and azithromycin Day #2 -TRC and nebs, inhaler Symbicort -Sputum culture pending receipt (she didn't report a dry cough) -Blood culture negative so far -Urine Legionella and Streptococcus antigen negative -Dr. Guan consultation was obtained, thanks recommendation -Robitussin (I called the pharmacy regarding low sugar Robitussin) -Montelukast -Tessalon cap 100 mg twice a day as needed -Dr. Turner suggested Xopenex as an alternate to albuterol (approximately 3% less sinus tachycardia as a side effect), I contacted the pharmacy and they stopped carying this medication for the last 2 years #Multifocal atrial tachycardia -Continue Diltiazem 240 mg daily and 13 mg as needed -Continue Frusemide 20 mg daily -Cardiology consultation Dr. Turner was obtained, thanks recommendation -Full up echocardiogram -TSH 0.282 low normal, free T4 0.75 normal -Recommendations to transfer to telemetry if palpitation didn't improve despite clinical respiratory improvement #Steroid-induced hyperglycemia -Continue Accu-Chek before meals -Continue NovoLog sliding scale low-dose -Follow up hemoglobin A1c DVT prophylaxis Lovenox Code full Diet consistent carbohydrate to Consultation pulmonology and cardiology Problem List: 1. COPD EXACERBATION 2. Pneumonia 3. Hypercapnic respiratory failure Pain Ratin Pain Location: none Pain Goal: Pain 4 or less Pain Plan: Mild pain pathway Tomorrow's Labs & Rationales: CMP
[2016-05-24 08:16] LABS: ABSOLUTE BASOPHIL COUNT 0 /CUMM (0.0-0.2); ABSOLUTE EOSINOPHIL COUNT 0 /CUMM (0.0-0.7); ABSOLUTE GRANULOCYTE CT 9.9 /CUMM (1.4-6.5); ABSOLUTE LYMPH COUNT 0.7 /CUMM (1.2-3.4); ABSOLUTE MONOCYTE COUNT 0.5 /CUMM (0.10-0.60); BASOPHIL % 0 % (0.0-2.0); EOSINOPHIL % 0 % (0-5); GRANULOCYTE % 89.2 % (42.2-75.2); HEMATOCRIT 42.4 % (37-47); MEAN CORPUSCULAR HGB 26.5 PG (27.0-31.0); MEAN CORPUSCULAR HGB CONC 31.8 G/DL (33.0-37.0); MEAN CORPUSCULAR VOLUME 83.5 FL (81.0-99.0); MEAN PLATELET VOLUME 8.2 FL (7.4-10.4); PLATELET COUNT 246 /CUMM (130-400); RBC DISTRIBUTION WIDTH 14.1 % (11.5-14.5); RED BLOOD CELL CT 5.07 /CUMM (4.20-5.40); WHITE BLOOD CELL COUNT 11.1 /CUMM (4.8-10.8)
--- NOTE | 2016-05-24 09:18 | PN- Pulmonary ---
Subjective HPI/Critical Care Issues: pt seen and examined afebrile 90% on 2.5LNC - at baseline no new studies to evaluate improved since admission significant distress even at baseline no n/v/d/c wheezing, dyspnea, pursed lipped breathing Objective Current Medications: Current Medications Sig/Bill Start time Last Medication Dose Route Stop Time Status Admin Acetaminophen 325 MG Q6 PRN 05/23 1400 AC PO Albuterol Sulfate 3 ML Q4 05/24 0200 AC 05/24 INH 0825 Albuterol Sulfate 3 ML ONCE ONE 05/23 1115 DC 05/23 INH 05/23 1116 1153 Azithromycin 500 MG DAILY 05/24 1000 AC Sodium Chloride 250 ML IV Azithromycin 500 MG ONCE ONE 05/23 1300 DC 05/23 Sodium Chloride 250 ML IV 05/23 1359 1329 Benzonatate 100 MG BID PRN 05/23 2200 AC PO Bisacodyl 5 MG DAILY PRN 05/23 1715 AC PO Budesonide/ 2 PUF BID 05/23 2200 AC 05/23 Formoterol Fumarate INH 2158 Ceftriaxone Sodium 1,000 MG DAILY 05/24 1000 AC IV Ceftriaxone Sodium 1,000 MG ONCE ONE 05/23 1300 DC 05/23 IV 05/23 1301 1310 Ceftriaxone Sodium 0 .STK-MED ONE 05/23 1257 DC .ROUTE Tea Butter/Shark 1 EYAL BID 05/24 1000 AC Liver Oil TOP Diltiazem HCl 240 MG DAILY 05/24 1000 AC PO Diltiazem HCl 30 MG DAILY PRN 05/23 1730 AC PO Diphenhydramine HCl 25 MG ONCE ONE 05/23 1145 DC 05/23 IV 05/23 1146 1203 Diphenhydramine HCl 0 .STK-MED ONE 05/23 1136 DC .ROUTE Docusate Sodium 100 MG QPM 05/23 2200 AC 05/23 PO 2158 Enoxaparin Sodium 0 .STK-MED ONE 05/23 1427 DC SC Enoxaparin Sodium 40 MG DAILY 05/23 1356 AC 05/23 SC 1428 Ergocalciferol 50,000 IU Q168H 05/25 1000 AC PO Furosemide 20 MG DAILY PRN 05/23 1730 AC PO Guaifenesin/ 10 ML Q4P PRN 05/23 1715 AC 05/23 Dextromethorphan PO 2028 Insulin Aspart 0 TIDAC 05/24 0800 DC SC Insulin Aspart 0 TIDAC 05/24 0800 CAN SC Insulin Aspart 0 TIDAC 05/24 0800 DC SC Insulin Aspart 0 TIDAC 05/23 1915 AC 05/24 SC 0841 Insulin Aspart 0 TIDAC 05/23 1745 DC SC Ipratropium Graham 2.5 ML Q4 05/24 0200 AC 05/24 INH 0825 Ipratropium Graham 2.5 ML ONCE ONE 05/23 1115 DC 05/23 INH 05/23 1116 1153 Lorazepam 1 MG QPM 05/23 2200 AC 05/23 PO 2158 Lorazepam 0.5 MG BID PRN 05/23 2200 AC PO 05/30 2159 Meclizine HCl 12.5 MG ONCE ONE 05/23 1615 DC 05/23 PO 05/23 1616 1618 Meclizine HCl 0 .STK-MED ONE 05/23 1613 DC PO Methylprednisolone 40 MG BID 05/23 2200 AC 05/24 IV 0841 Montelukast Sodium 10 MG AT BEDTIME 05/24 2200 AC PO Morphine Sulfate 4 MG Q4P PRN 05/23 1400 AC IV Multivitamins 1 TAB DAILY 05/24 1000 AC Therapeutic PO Omeprazole 20 MG DAILY PRN 05/23 1730 AC PO Ondansetron HCl 4 MG ONCE ONE 05/23 1900 DC 05/23 IV 05/23 1901 1859 Ondansetron HCl 4 MG ONCE ONE 05/23 1130 DC 05/23 IV 05/23 1131 1131 Ondansetron HCl 0 .STK-MED ONE 05/23 1128 DC .ROUTE Oxycodone/ 1 TAB Q6 PRN 05/23 1400 AC Acetaminophen PO Polyethylene Glycol 17 GM DAILY 05/24 1000 AC PO Polyethylene Glycol 17 GM DAILY PRN 05/23 1715 AC PO Senna/Docusate Sodium 1 TAB QPM 05/23 2200 AC PO Vital Signs & I&O Last 24 Hrs of Vitals and I&O: Vital Signs Date Time Temp Pulse Resp B/P Pulse O2 O2 Flow FiO2 Ox Delivery Rate 05/24 0829 90 Nasal 2.5L Cannula 05/24 0714 97.9 92 20 100/60 93 Nasal 2.5L Cannula 05/24 0510 93 Nasal 2.5L Cannula 05/24 0145 91 Nasal 2.5L Cannula 03/27 2206 98.6 85 20 108/50 98 Nasal 3.0L Cannula 05/23 2158 Nasal 2.5L Cannula 05/23 1640 Nasal 3.0L Cannula 05/23 1640 98.1 92 22 122/60 90 Nasal 3.0L Cannula 05/23 1545 94 Nasal 4.0L Cannula 05/23 1545 99.0 96 20 109/60 04 Nasal 4.0L Cannula 05/23 1459 98 Nasal 4.0L Cannula 05/23 1259 98.9 109 18 118/65 90 Nasal 4.0L Cannula 05/23 1213 93 Nasal 3.0L Cannula 05/23 1109 99.5 110 20 128/72 91 Nasal 3.0L Cannula 05/23 1057 98.0 22 97 Nasal 4.0L Cannula Intake & Output 05/24 1600 05/24 0800 05/24 0000 Intake Total 680 Output Total 750 Balance -70 Intake, IV 80 Intake, Oral 600 Output, Urine 750 Patient 132 lb Weight Exam Other Physical Findings: General - Alert, awake and oriented, mild distress HEENT - normocephalic, atraumatic Cardiovascular - S1, S2 Lungs - bilateral wheezing, prolonged end expiratory phase Abdomen - soft, bowel sounds positive, no tenderness Extremities - without edema or cyanosis Results Last 24 Hrs of Lab Results: Laboratory Tests 05/24/16 0650: Anion Gap 6, Estimated GFR > 60, BUN/Creatinine Ratio 25.7 H, CBC w Diff Pending, WBC Pending, RBC Pending, Hgb Pending, Hct Pending, MCV Pending, MCH Pending, RDW Pending, Plt Count Pending, MPV Pending, Gran % Pending, Lymphocytes % Pending, Monocytes % Pending, Eosinophils % Pending, Basophils % Pending, Absolute Granulocytes Pending, Absolute Lymphocytes Pending, Absolute Monocytes Pending, Absolute Eosinophils Pending, Absolute Basophils Pending, PUBS MCHC Pending 05/23/16 1720: Urinalysis LIGHT H, Urine Color YEL, Urine Clarity HAZY H, Urine pH 6.0, Ur Specific [place] 1.015, Urine Protein TRACE H, Urine Ketones NEG, Urine Nitrite NEG, Urine Bilirubin NEG, Urine Urobilinogen 0.2, Ur Leukocyte Esterase NEG, Ur Microscopic SEDIMENT EXAMINED, Urine RBC RARE, Ur Epithelial Cells FEW, Urine Bacteria FEW H, Urine Hemoglobin SMALL H, Urine Glucose >=1000 H 05/23/16 1155: pH 7.33 L, pCO2 61 *H, pO2 90, HCO3 31 H, ABG O2 Sat (Measured) 95.0 L, Carboxyhemoglobin 1.2 L, O2 Concentration % 3L, O2 Delivery Method NC, Phlebotomy Draw Site RIGHT BRACHIAL 05/23/16 1125: Anion Gap 7, Estimated GFR > 60, BUN/Creatinine Ratio 16.7, Glucose 160 H, Calcium 9.2, Magnesium 2.4 H, Total Bilirubin 0.6, AST 20, ALT 38, Alkaline Phosphatase 87, Troponin I < 0.01, Bsa-[id number]-Evbdycmalzg Pept 205 H, Total Protein 6.6, Albumin 4.0, Globulin 2.6, Albumin/Globulin Ratio 1.5, CBC w Diff NO MAN DIFF REQ, RBC 5.40, MCV 81.8, MCH 26.7 L, RDW 14.4, MPV 7.5, Gran % 82.6 H, Lymphocytes % 14.7 L, Monocytes % 2.1, Eosinophils % 0.4, Basophils % 0.2, Absolute Granulocytes 8.0 H, Absolute Lymphocytes 1.4, Absolute Monocytes 0.2, Absolute Eosinophils 0, Absolute Basophils 0, PUBS MCHC 32.6 L Impression/Plan Impression/Plan Impression/Plan: Impression 76 year old woman known to me from the office and previous admissions. * Acute on chronic hypercarbic and-toxemic respiratory failure secondary to COPD exacerbation likely secondary to either bronchitis or right lower lobe community -acquired pneumonia * Diabetes/steroid-induced hyperglycemia Plan - TRC/nebs - complete course of abx - currently on Ceftriaxone and Zithromax - Sputum culture, Legionella and strep antigens, negative to date - Reduce to Solu-Medrol 30 mg IV every 12 - case management for home care services - Monitor fingersticks closely given steroid induced hyperglycemia - spo2 goal >88% - continue Symbicort with rinsing of the mouth DVT prophylaxis at all times
--- NOTE | 2016-05-24 13:23 | Cons- Cardiology ---
General Information and HPI Consulting Request Date of Consult: 05/24/16 Requested By: MUSHTAQ MCCULLOUGH MD Reason for Consult: "Tachycardia". Source of Information: patient, old records Exam Limitations: clinical condition History of Present Illness: Mrs. 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 She has chronic intermittent palpitations that typically "come and go" and has previously implicated her nebulizers as playing a role in her palpitations ( "heart racing"). In an effort to decrease her palpitations she cut back on her nebulizer treatments 4 times daily to 3 times daily without any improvement. She states that her chronic dyspnea progressively worsened over the past several days with a nonproductive "dry" cough and low-grade temperature that led to her contacting her primary care physician (Jose Dong M.D.) who placed her on erythromycin, however, things did not improve over the past few days, and as a result she came to the ED for further evaluation and management. She uses a nebulizer with albuterol (beta-2 adrenergic agonist) up to 4 tmes daily, an unspenified inhaler for "rescue" rarely, and a Symbicort (budesonide, formoterol) steroid and long-acting beta-2 adrenergic agonist, inhaler 2 puffs twice daily as an outpatient. She is also on prednisone 2.5 mg daily. She is, additionally, on diltiazem CD 240 mg daily for her blood pressure and takes an additional diltiazem 30 mg, "as needed" for heart rate control. Allergies/Medications Allergies: Coded Allergies: Iodinated Contrast Media - Oral and (IODINATED CONTRAST MEDIA - IV DYE) ( Intermediate, HIVES, RASH 04/27/15) Penicillins (Intermediate, HIVES 04/27/15) Sulfa (Sulfonamide Antibiotics) (Intermediate, HIVES 04/27/15) methylprednisolone (Mild, "TOO MANY SIDE EFFECTS, HIGH SUGAR, LOOSE TEETH, NECK BONES" 04/27/15) Home Med List: Azithromycin 250 MG TABLET 1 DP PO DAILY ANTIBIOTIC, INFECTION (Reported) 2 the first day followed by 1 for days 2-5 Benzonatate 100 MG CAPSULE 1 CAP PO BIDP PRN COUGH (Reported) Budesonide/Formoterol Fumarate (Symbicort 160-4.5 Mcg Inhaler) 160 MCG-4.5 MCG/ ACTUATION HFA.AER.AD 2 PUF INH BID COPD (Reported) Diltiazem HCl 30 MG TABLET 1 TAB PO DAILY PRN HEART (Reported) Diltiazem HCl (Cardizem Cd) 240 MG CAP.ER.24H 1 CAP PO DAILY HEART (Reported) Docusate Sodium (Colace) 100 MG CAPSULE 1 CAP PO QPM CONSTIPATION (Reported) Ergocalciferol (Vitamin D2) (Vitamin D2) 50,000 UNIT CAPSULE 1 CAP PO QW SUPPLEMENT (Reported) Furosemide 20 MG TABLET 1 TAB PO DAILY PRN WATER PILL (Reported) Ipratropium/Albuterol Sulfate (Iprat-Albut 0.5-3(2.5) MG/3 Ml) 0.5 MG-3 MG (2.5 MG BASE)/3 ML AMPUL.NEB 1 INH PO 4 TIMES/DAY BREATHING PROBLEMS (Reported) Lorazepam 1 MG TABLET 1 TAB PO QPM SLEEP (Reported) Lorazepam (Ativan) 0.5 MG TABLET 1 TAB PO BIDP PRN ANXIETY (Reported) Meclizine HCl 12.5 MG TABLET 1 TAB PO BID DIZZINESS (Reported) Montelukast Sodium (Singulair) 10 MG TABLET 1 TAB PO DAILY ALLERGIES ( Reported) Multivitamin (One Daily Multivitamin) 1 EACH TABLET 1 TAB PO DAILY SUPPLEMENT (Reported) Omeprazole 20 MG CAPSULE.DR 1 CAP PO DAILY PRN ACID (Reported) Polyethylene Glycol 3350 (Miralax) 17 GRAM POWD.PACK 1 PAC PO DAILY PRN CONSTIPATION (Reported) dissolve in water Prednisone 2.5 MG TABLET 1 TAB PO DAILY COPD (Reported) Sennosides/Docusate Sodium (Senna-Docusate Sodium Tablet) 8.6 MG-50 MG TABLET 1 TAB PO QPM CONSTIPATION (Reported) Past History Travel History Traveled to [place] past 21 day No Medical History Blood Transfusion Hx: No Neurological: dizziness EENT: NONE Cardiovascular: diastolic CHF, hyperlipidemia, ATRIAL TACYCARDIA Respiratory: COPD, obstructive sleep apnea, USES NASAL O2 AT 2.5 L Gastrointestinal: NONE Hepatic: NONE Renal: NONE Musculoskeletal: osteoporosis Psychiatric: NONE Endocrine: NONE Blood Disorders: NONE Cancer(s): NONE 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 self Services at Home: Oxygen Primary Language: Icelandic Smoking Status: Former Smoker ETOH Use: occasional use Illicit Drug Use: denies illicit drug use Functional Ability ADLs Independent: dressing, eating, toileting, bathing. Ambulation: independent IADLs Independent: shopping, housework, finances, food prep, telephone, transportation , medication admin. Exam & Diagnostic Data Vital Signs and I&O Vital Signs Date Time Temp Pulse Resp B/P Pulse O2 O2 Flow FiO2 Ox Delivery Rate 05/24 0829 90 Nasal 2.5L Cannula 05/24 0800 Nasal 2.5L Cannula 05/24 0714 97.9 92 20 100/60 93 Nasal 2.5L Cannula 05/24 0510 93 Nasal 2.5L Cannula 05/24 0145 91 Nasal 2.5L Cannula 05/24 0000 98 Nasal 2.5L Cannula 05/23 2206 98.6 85 20 108/50 98 Nasal 3.0L Cannula 05/23 2158 Nasal 2.5L Cannula 05/23 1640 Nasal 3.0L Cannula 05/23 1640 98.1 92 22 122/60 90 Nasal 3.0L Cannula 05/23 1545 94 Nasal 4.0L Cannula 05/23 1545 99.0 96 20 109/60 04 Nasal 4.0L Cannula 05/23 1459 98 Nasal 4.0L Cannula Intake & Output 05/24 1600 05/24 0800 05/24 0000 05/23 1600 05/23 0800 05/23 0000 Intake Total 0 680 Output Total 0 750 100 Balance 0 -70 -100 Intake, IV 0 80 Intake, Oral 0 600 Number 0 Bowel Movements Output, Urine 0 750 100 Patient 132 lb 132 lb Weight Physical Exam: Chronically ill-appearing elderly female in mild respiratory distress with oxygen in place. Vital signs: See above. HEENT: Normocephalic, atraumatic, EOMI, slightly dry mucous membranes. Neck: No JVD, no bruits. Lungs: Decreased breath sounds bilaterally. Heart: S1, S2 (both distant) with no murmur, gallop, or rub appreciated. PMI fifth ICS at [facility]. Abdomen: Soft, nontender, positive bowel sounds. Extremities: No edema. Labs/Eduardo Results: Laboratory Tests 05/24 0650 Chemistry Sodium (137 - 145 mmol/L) 139 Potassium (3.5 - 5.1 mmol/L) 4.7 Chloride (98 - 107 mmol/L) 99 Carbon Dioxide (22 - 30 mmol/L) 34 H Anion Gap (5 - 16) 6 BUN (7 - 17 mg/dL) 18 H Creatinine (0.5 - 1.0 mg/dL) 0.7 Estimated GFR (>60 ml/min) > 60 BUN/Creatinine Ratio (7 - 25 %) 25.7 H 25-OH Vitamin D Total (30 - 100 ng/ml) Pending Hematology CBC w Diff MAN DIFF ORDERED WBC (4.8 - 10.8 /CUMM) 11.1 H RBC (4.20 - 5.40 /CUMM) 5.07 Hgb (12.0 - 16.0 G/DL) 13.4 Hct (37 - 47 %) 42.4 MCV (81.0 - 99.0 FL) 83.5 MCH (27.0 - 31.0 PG) 26.5 L RDW (11.5 - 14.5 %) 14.1 Plt Count (130 - 400 /CUMM) 246 MPV (7.4 - 10.4 FL) 8.2 Gran % (42.2 - 75.2 %) 89.2 H Lymphocytes % (20.5 - 51.1 %) 6.4 L Monocytes % (1.7 - 9.3 %) 4.4 Eosinophils % (0 - 5 %) 0 Basophils % (0.0 - 2.0 %) 0 L Absolute Granulocytes (1.4 - 6.5 /CUMM) 9.9 H Segmented Neutrophils (42.2 - 75.2 %) 83 H Band Neutrophils (0.0 - 5.0 %) 6 H Absolute Lymphocytes (1.2 - 3.4 /CUMM) 0.7 L Lymphocytes (20.5 - 51.1 %) 8 L Monocytes (1.7 - 9.3 %) 3 Absolute Monocytes (0.10 - 0.60 /CUMM) 0.5 Absolute Eosinophils (0.0 - 0.7 /CUMM) 0 Absolute Basophils (0.0 - 0.2 /CUMM) 0 Platelet Estimate (ADEQUATE) VERIFIED BY SMEAR Normocytic RBCs VERIFIED Normochromic RBCs VERIFIED PUBS MCHC (33.0 - 37.0 G/DL) 31.8 L 05/23 05/23 1720 1155 Blood Gas pH (7.35 - 7.45 PH) 7.33 L pCO2 (35 - 45 TORR) 61 *H pO2 (80 - 100 TORR) 90 HCO3 (21 - 28 MEQ/L) 31 H ABG O2 Sat (Measured) (>96.0 %) 95.0 L Carboxyhemoglobin (1.5 - 5.0 %) 1.2 L O2 Concentration % 3L O2 Delivery Method NC Miscellaneous Phlebotomy Draw Site RIGHT BRACHIAL Urines Urinalysis LIGHT H Urine Color (YEL,AMB,STR) YEL Urine Clarity (CLEAR) HAZY H Urine pH (5.0 - 8.0) 6.0 Ur Specific [place] (1.001 - 1.035) 1.015 Urine Protein (NEG,<30 MG/DL) TRACE H Urine Ketones (NEG) NEG Urine Nitrite (NEG) NEG Urine Bilirubin (NEG) NEG Urine Urobilinogen (0.1 - 1.0 EU/dl) 0.2 Ur Leukocyte Esterase (NEG) NEG Ur Microscopic SEDIMENT EXAMINED Urine RBC (0 - 5 /HPF) RARE Ur Epithelial Cells (NONE,FEW) FEW Urine Bacteria (NEG/NONE) FEW H Urine Hemoglobin (NEG) SMALL H Urine Glucose (N MG/DL) >=1000 H 05/23 1125 Chemistry Sodium (137 - 145 mmol/L) 135 L Potassium (3.5 - 5.1 mmol/L) 4.2 Chloride (98 - 107 mmol/L) 95 L Carbon Dioxide (22 - 30 mmol/L) 33 H Anion Gap (5 - 16) 7 BUN (7 - 17 mg/dL) 10 Creatinine (0.5 - 1.0 mg/dL) 0.6 Estimated GFR (>60 ml/min) > 60 BUN/Creatinine Ratio (7 - 25 %) 16.7 Glucose (65 - 99 mg/dL) 160 H Calcium (8.4 - 10.2 mg/dL) 9.2 Magnesium (1.6 - 2.3 mg/dL) 2.4 H Total Bilirubin (0.2 - 1.3 mg/dL) 0.6 AST (14 - 36 U/L) 20 ALT (9 - 52 U/L) 38 Alkaline Phosphatase (<127 U/L) 87 Troponin I (< 0.11 ng/ml) < 0.01 [id number] Pept (<125 pg/mL) 205 H Total Protein (6.3 - 8.2 g/dL) 6.6 Albumin (3.5 - 5.0 g/dL) 4.0 Globulin (1.9 - 4.2 gm/dL) 2.6 Albumin/Globulin Ratio (1.1 - 2.2 %) 1.5 Hematology CBC w Diff NO MAN DIFF REQ WBC (4.8 - 10.8 /CUMM) 9.7 RBC (4.20 - 5.40 /CUMM) 5.40 Hgb (12.0 - 16.0 G/DL) 14.4 Hct (37 - 47 %) 44.2 MCV (81.0 - 99.0 FL) 81.8 MCH (27.0 - 31.0 PG) 26.7 L RDW (11.5 - 14.5 %) 14.4 Plt Count (130 - 400 /CUMM) 253 MPV (7.4 - 10.4 FL) 7.5 Gran % (42.2 - 75.2 %) 82.6 H Lymphocytes % (20.5 - 51.1 %) 14.7 L Monocytes % (1.7 - 9.3 %) 2.1 Eosinophils % (0 - 5 %) 0.4 Basophils % (0.0 - 2.0 %) 0.2 Absolute Granulocytes (1.4 - 6.5 /CUMM) 8.0 H Absolute Lymphocytes (1.2 - 3.4 /CUMM) 1.4 Absolute Monocytes (0.10 - 0.60 /CUMM) 0.2 Absolute Eosinophils (0.0 - 0.7 /CUMM) 0 Absolute Basophils (0.0 - 0.2 /CUMM) 0 PUBS MCHC (33.0 - 37.0 G/DL) 32.6 L Diagnostic Data EKG Results (05/23/2016) sinus tachycardia at 10 2 bpm, right atrial abnormality, consider left atrial abnormality, low frontal lead voltage, small inferior Q waves, and prominent anterior forces. Slightly faster rate when compared to previous tracing (01/29/2015). CXR Results (05/23/2016) Cardiac leads overlie the chest. Postoperative changes are seen in the right lung with a suture line noted at the right midlung. There is some degree of right-sided volume loss. Blunted right costophrenic angle suggests a small pleural effusion. Hazy opacity seen in the right mid to lower lung. No pneumothorax. The cardiomediastinal silhouette is somewhat shifted to the right, although the patient is rotated which limits overall evaluation. Assessment/Plan Assessment/Plan Acute exacerbation of COPD in a steroid and oxygen dependent elderly female, former smoker with chronic hypercapnic respiratory failure, remote eosinophilic granuloma with right upper lobe resection, mild pulmonary hypertension, obstructive sleep apnea, etc., as well as stage I diastolic dysfunction, previous MAT, and intermittent sinus tachycardia, etc. Naturally, palpitations occur frequently in individuals on beta-2 adrenergic agonist secondary to sinus tachycardia (less than or equal to 7%) and various supraventricular and ventricular arrhythmias. Mrs. Chase is also at increased risk for MAT which she has experienced in the past. Recommendations: * Consider transfer to telemetry if palpitations persist despite her acute exacerbation coming under control. * Consider the possibility of changing her beta 2 agonist to Xopenex ( levalbuterol) which reportedly is slightly less prone to cause sinus tachycardia (approximately 3%). We'll discuss this with pulmonary medicine. * Follow-up on pulmonary recommendations regarding oxygen, steroids, antibiotics , nebulizers, etc. * If she is not transferred to telemetry, consider placing a 24-hour Holter monitor to assess her heart rate, and exclude significant arrhythmias. * Continue on diltiazem CD 240 mg daily with "as needed" additional 30 mg when she feels tachycardic. * Consider repeat echocardiogram. * Check magnesium level, TSH, free T4, glycosylated hemoglobin A1c. * DVT prophylaxis. Further recommendations will follow, Thank you. Consult Acknowledgment - Thank you for your consult request.
[2016-05-24 14:12] VITALS: BP 112/70
[2016-05-24 22:31] VITALS: BP 118/64
[2016-05-25 07:02] VITALS: BP 110/58
--- NOTE | 2016-05-25 07:24 | PN- Housestaff ---
Subjective Follow-up For: #COPD exacerbation #Community-acquired pneumonia #Acute hypoxic hypercapnic respiratory failure #Multifocal atrial tachycardia Subjective: Patient was seen and examined this morning, she reported feeling tired and fatigued, she reported dry cough, shortness of breath on exertion, palpitation, headache, blurry vision that is chronic. We had discussion with the patient regarding CODE STATUS, she was very anxious and thought that this discussion related to severity of her case, we explained to her that it's normal discussion for every patient admitted to the hospital and will come later and discuss that with her daughter. Review of Systems Constitutional: Reports: see HPI. Objective Last 24 Hrs of Vital Signs/I&O Vital Signs Date Time Temp Pulse Resp B/P Pulse O2 O2 Flow FiO2 Ox Delivery Rate 05/25 0804 94 Nasal 2.5L Cannula 05/25 0800 Nasal 3.0L Cannula 05/25 0702 98.3 91 20 110/58 97 Nasal 3.0L Cannula 05/25 0038 98 05/25 0036 96 Nasal 4.0L Cannula 05/25 0000 96 Nasal 4.0L Cannula 05/24 2231 97.8 106 20 118/64 90 Nasal Cannula 05/24 2042 91 Nasal 4.0L Cannula 05/24 1644 89 Nasal 2.0L Cannula 05/24 1600 Nasal 2.5L Cannula 05/24 1412 98.3 93 20 112/70 94 Nasal 3.0L Cannula Intake & Output 05/25 1600 05/25 0800 05/25 0000 Intake Total 150 450 Output Total Balance 150 450 Intake, IV 150 Intake, Oral 150 300 Physical Exam General Appearance: Alert, Oriented X3, Cooperative, Mild Distress Skin: No Rashes, No Breakdown, No Significant Lesion HEENT: Atraumatic, PERRLA, EOMI, Mucous Membr. moist/pink Neck: Supple, No JVD Cardiovascular: Regular Rate, Normal S1, Normal S2, No Murmurs Lungs: BILATERAL DECREASED AIR ENTRY, DIFFUSE WHEEZE, NO RHONCHI Abdomen: Normal Bowel Sounds, Soft, No Tenderness Neurological: Normal Gait, Normal Speech, Strength at 5/5 X4 Ext, Normal Tone, Sensation Intact, Cranial Nerves 3-12 NL, Reflexes 2+ Extremities: No Clubbing, No Cyanosis, No Edema, Normal Pulses Assessment/Plan Assessment: Mr. Chase is a 76 year old female with past medical history of pulmonary hypertension, chronic COPD on home oxygen of 2.5L, chronic steroids 2.5mg daily , multifocal atrial tachycardia on diltiazem presented to ED with chief complaint of shortness of breath. Chest x-ray showed IMPRESSION: Small right pleural effusion. Hazy right mid to lower lung opacity could represent atelectasis or pneumonia. Problem list #COPD exacerbation #Community-acquired pneumonia #Acute hypoxic hypercapnic respiratory failure #Multifocal atrial tachycardia #COPD exacerbation #Community-acquired pneumonia #Acute hypoxic hypercapnic respiratory failure -Improved, patient is back to baseline oxygen supplementation 2.5 with saturation 90% -Continue IV Solu-Medrol 30 mg twice a day -Continue ceftriaxone and azithromycin Day #3 -TRC and nebs, inhaler Symbicort -Sputum culture pending receipt (she didn report a dry cough) -Blood culture negative so far -Urine Legionella and Streptococcus antigen negative -Dr. Guan consultation was obtained, thanks recommendation -Robitussin (I called the pharmacy regarding low sugar Robitussin) -Montelukast -Tessalon cap 100 mg twice a day as needed -Dr. Turner suggested Xopenex as an alternate to albuterol (approximately 3% less sinus tachycardia as a side effect), I contacted the pharmacy and they stopped carying this medication for the last 2 years #Multifocal atrial tachycardia -Continue Diltiazem 240 mg daily and 13 mg as needed -Continue Frusemide 20 mg daily -Cardiology consultation Dr. Turner was obtained, thanks recommendation -Full up echocardiogram -TSH 0.282 low normal, free T4 0.75 normal -Recommendations to transfer to telemetry if palpitation didn't improve despite clinical respiratory improvement #Steroid-induced hyperglycemia -Continue Accu-Chek before meals -Continue NovoLog sliding scale low-dose -Follow up hemoglobin A1c DVT prophylaxis Lovenox Code full Diet consistent carbohydrate to Consultation pulmonology and cardiology Problem List: 1. COPD EXACERBATION 2. Pneumonia Pain Ratin Pain Location: None Pain Goal: Pain 4 or less Pain Plan: Mild pain pathway Tomorrow's Labs & Rationales: Basic metabolic panel
--- NOTE | 2016-05-25 11:46 | PN- Pulmonary ---
Subjective HPI/Critical Care Issues: pt seen and examined feeling better than admission however still desaturates with exertion significant weakness still Objective Current Medications: Current Medications Sig/Bill Start time Last Medication Dose Route Stop Time Status Admin Acetaminophen 325 MG .STK-MED ONE 05/24 1153 DC PO 05/24 1154 Acetaminophen 325 MG Q6 PRN 05/23 1400 AC 05/24 PO 1847 Albuterol Sulfate 3 ML Q4 05/24 0200 AC 05/25 INH 0802 Azithromycin 500 MG DAILY 05/24 1000 AC 05/25 Sodium Chloride 250 ML IV 1050 Benzonatate 100 MG BID PRN 05/23 2200 AC PO Bisacodyl 5 MG DAILY PRN 05/23 1715 AC 05/25 PO 0753 Budesonide/ 2 PUF BID 05/23 2200 AC 05/25 Formoterol Fumarate INH 0931 Ceftriaxone Sodium 1,000 MG DAILY 05/24 1000 AC 05/25 IV 0931 [place] Butter/Shark 1 EYAL BID 05/24 1000 AC 05/25 Liver Oil TOP 0931 Diltiazem HCl 240 MG DAILY 05/24 1000 AC 05/25 PO 0931 Diltiazem HCl 30 MG DAILY PRN 05/23 1730 AC PO Docusate Sodium 100 MG BID 05/25 1000 AC 05/25 PO 0753 Docusate Sodium 100 MG QPM 05/23 2200 DC 05/24 PO 2143 Enoxaparin Sodium 40 MG DAILY 05/23 1356 AC 05/23 SC 1428 Ergocalciferol 50,000 IU Q168H 05/25 1000 AC 05/25 PO 0931 Furosemide 20 MG DAILY PRN 05/23 1730 AC PO Guaifenesin 10 ML Q6P PRN 05/24 1430 AC 05/25 PO 1142 Guaifenesin/ 10 ML Q4P PRN 05/23 1715 DC 05/23 Dextromethorphan PO 202 Insulin Aspart 0 TIDAC 05/23 1915 AC 05/24 SC 2011 Ipratropium [place] 2.5 ML Q4 05/24 0200 AC 05/25 INH 0759 Lorazepam 1 MG QPM 05/23 2200 AC 05/24 PO 2143 Lorazepam 0.5 MG BID PRN 05/23 2200 AC PO 05/30 2159 Methylprednisolone 30 MG Q12 05/24 1000 AC 05/25 IV 0931 Montelukast Sodium 10 MG AT BEDTIME 05/24 2200 AC 05/24 PO 2143 Morphine Sulfate 4 MG Q4P PRN 05/23 1400 AC IV Multivitamins 1 TAB DAILY 05/24 1000 AC 05/25 Therapeutic PO 0931 Omeprazole 20 MG DAILY PRN 05/23 1730 AC PO Oxycodone/ 1 TAB Q6 PRN 05/23 1400 AC Acetaminophen PO Patient Medication 1 ED .STK-MED ONE 05/24 1401 DC Teaching ED 05/24 1402 Polyethylene Glycol 17 GM DAILY 05/24 1000 AC 05/25 PO 0753 Polyethylene Glycol 17 GM DAILY PRN 05/23 1715 AC PO Senna/Docusate Sodium 1 TAB QPM 05/23 2200 AC 05/24 PO 2143 Sodium Polystyrene 30 ML 11:00 AM 05/25 1100 AC 05/25 Sulfonate PO 1133 Sodium Polystyrene 30 ML 4 TIMES/DAY 05/25 1008 DC Sulfonate PO Vital Signs & I&O Last 24 Hrs of Vitals and I&O: Vital Signs Date Time Temp Pulse Resp B/P Pulse O2 O2 Flow FiO2 Ox Delivery Rate 05/25 0804 94 Nasal 2.5L Cannula 05/25 0800 Nasal 3.0L Cannula 05/25 0702 98.3 91 20 110/58 97 Nasal 3.0L Cannula 05/25 0038 98 05/25 0036 96 Nasal 4.0L Cannula 05/25 0000 96 Nasal 4.0L Cannula 05/24 2231 97.8 106 20 118/64 90 Nasal Cannula 05/24 2042 91 Nasal 4.0L Cannula 05/24 1644 89 Nasal 2.0L Cannula 05/24 1600 Nasal 2.5L Cannula 05/24 1412 98.3 93 20 112/70 94 Nasal 3.0L Cannula Intake & Output 05/25 1600 05/25 0800 05/25 0000 Intake Total 150 450 Output Total Balance 150 450 Intake, IV 150 Intake, Oral 150 300 Exam Other Physical Findings: General - Alert, awake and oriented, mild distress HEENT - normocephalic, atraumatic Cardiovascular - S1, S2 Lungs - bilateral wheezing, prolonged end expiratory phase Abdomen - soft, bowel sounds positive, no tenderness Extremities - without edema or cyanosis Results Last 24 Hrs of Lab Results: Laboratory Tests 05/25/16 0620: Anion Gap 3 L, Estimated GFR > 60, BUN/Creatinine Ratio 36.7 H Impression/Plan Impression/Plan Impression/Plan: Impression 76 year old woman known to me from the office and previous admissions. * Acute on chronic hypercarbic and-toxemic respiratory failure secondary to COPD exacerbation likely secondary to either bronchitis or right lower lobe community -acquired pneumonia * Diabetes/steroid-induced hyperglycemia Plan - TRC/nebs - complete course of abx - currently on Ceftriaxone and Zithromax - KEEP Solu-Medrol 30 mg IV every 12 - case management for home care services - Monitor fingersticks closely given steroid induced hyperglycemia - spo2 goal >88% - continue Symbicort with rinsing of the mouth DVT prophylaxis at all times
--- NOTE | 2016-05-25 12:55 | NUR ---
ASSUMED PATIENT CARE AT 1100. PATIENT ALERT AND ORIENTED X 3. OOB INDEPENDENTLY. SOB WITH EXERTION. C/O PAIN TO RIGHT FOREARM D/T IV INFILTRATION. HEAT APPLIED. CONTINUES ON TRC. WILL CONTINUE TO MONITOR.
--- NOTE | 2016-05-25 14:27 | PN- Att Addend ---
Attending MD Review Statement Attending Statement Attending MD Statement: examined this patient, discuss w/resident/PA/COBOL APPLICATION DEVELOPER, agreed w/resident/PA/COBOL APPLICATION DEVELOPER, reviewed EMR data (avail), discussed w/nursing, discussed w/ case mgmt Attending Assessment/Plan: Patient seen and examined at bedside. Discussed with patient the care plan. Patient still having shortness of breath and speaking in short sentences. On examination has bilateral wheezing and also is complaining of coughing. Patient seen by sewage plant supervisor today and they recommend continuing the IV Solu-Medrol at 30 every 12 hours. Discussed with patient about CODE STATUS as well as about intubation. Patient got very anxious and when we discussed about that and we told her that we will revisit that topic later when her daughter is here. Patient thinks that we anticipated that she is in a be intubated that's why we were asking about the CODE STATUS but we explained to the patient that this is a normal discussion we have with every patient that gets admitted to the hospital and in her case it is also important given her COPD. I'll discuss with Dr. Guan and have him talk about the CODE STATUS with the patient and her family.
[2016-05-25 14:54] VITALS: BP 122/74
[2016-05-25 22:57] VITALS: BP 136/76
--- NOTE | 2016-05-26 07:16 | PN- Housestaff ---
See Addendum Subjective Follow-up For: #COPD exacerbation #Community-acquired pneumonia #Acute hypoxic hypercapnic respiratory failure #Multifocal atrial tachycardia Subjective: Patient was seen and examined this morning, she is lying comfortably on bed. She reported shortness of breath on exertion, dry cough, denied fever or chills. Patient reported palpitation that is at baseline on exertion. She still didn't have any bowel movement, last bowel movement was 4 days ago, patient seemed very anxious about that, we order lactulose 2 doses today. Review of Systems Constitutional: Reports: see HPI. Objective Last 24 Hrs of Vital Signs/I&O Vital Signs Date Time Temp Pulse Resp B/P Pulse O2 O2 Flow FiO2 Ox Delivery Rate 05/26 0924 96 Nasal 2.0L Cannula 05/26 0735 97.7 101 20 136/70 91 Nasal 2.5L Cannula 05/26 0042 91 Nasal 2.5L Cannula 05/26 0000 91 Nasal 2.5L Cannula 05/25 2257 98.3 114 20 136/76 91 Nasal Cannula 05/25 1635 90 Nasal 2.5L Cannula 05/25 1600 Nasal 2.5L Cannula 05/25 1454 98.6 96 20 122/74 91 Nasal 2.5L Cannula 05/25 1228 93 Nasal 2.5L Cannula Intake & Output 05/26 1600 05/26 0800 05/26 0000 Intake Total 250 480 Output Total Balance 250 480 Intake, Oral 250 480 Number 1 Bowel Movements Physical Exam General Appearance: Alert, Oriented X3, Cooperative, No Acute Distress Skin: No Rashes, No Breakdown, No Significant Lesion HEENT: Atraumatic, PERRLA, EOMI, Mucous Membr. moist/pink Neck: Supple, No JVD Cardiovascular: Regular Rate, Normal S1, Normal S2, No Murmurs Lungs: bilateral decreased air entry, diffuse wheeze Abdomen: Normal Bowel Sounds, Soft, No Tenderness Neurological: Normal Gait, Normal Speech, Strength at 5/5 X4 Ext, Normal Tone, Sensation Intact, Cranial Nerves 3-12 NL, Reflexes 2+ Extremities: No Clubbing, No Cyanosis, No Edema, Normal Pulses Assessment/Plan Assessment: Mr. Chase is a 76 year old female with past medical history of pulmonary hypertension, chronic COPD on home oxygen of 2.5L, chronic steroids 2.5mg daily , multifocal atrial tachycardia on diltiazem presented to ED with chief complaint of shortness of breath. Chest x-ray showed IMPRESSION: Small right pleural effusion. Hazy right mid to lower lung opacity could represent atelectasis or pneumonia. Problem list #COPD exacerbation #Community-acquired pneumonia #Acute hypoxic hypercapnic respiratory failure #Multifocal atrial tachycardia #COPD exacerbation #Community-acquired pneumonia #Acute hypoxic hypercapnic respiratory failure -Improved, patient is back to baseline oxygen supplementation 2.5 with saturation 90% -Continue IV Solu-Medrol 30 mg twice a day -Continue ceftriaxone and azithromycin Day #4 -TRC and nebs, inhaler Symbicort -Start mucosol inhalation to help expectorating the mucus -Sputum culture pending receipt (she did report dry cough) -Blood culture negative so far -Urine Legionella and Streptococcus antigen negative -Dr. Guan consultation was obtained, thanks recommendation -Robitussin -Montelukast -Tessalon cap 100 mg twice a day as needed -Dr. Turner suggested Xopenex as an alternate to albuterol (approximately 3% less sinus tachycardia as a side effect), I contacted the pharmacy and they stopped carying this medication for the last 2 years #Multifocal atrial tachycardia -Continue Diltiazem 240 mg daily and 13 mg as needed -Continue Frusemide 20 mg daily -Cardiology consultation Dr. Turner was obtained, thanks recommendation -Full up echocardiogram -TSH 0.282 low normal, free T4 0.75 normal -Recommendations to transfer to telemetry if palpitation didn't improve despite clinical respiratory improvement #Steroid-induced hyperglycemia -Continue Accu-Chek before meals -Continue NovoLog sliding scale low-dose -Follow up hemoglobin A1c DVT prophylaxis Lovenox Code full Diet consistent carbohydrate to Consultation pulmonology and cardiology Problem List: 1. COPD EXACERBATION 2. Pneumonia Pain Ratin Pain Location: None Pain Goal: Pain 4 or less Pain Plan: Mild pain pathway Tomorrow's Labs & Rationales: None
[2016-05-26 07:35] VITALS: BP 136/70
--- NOTE | 2016-05-26 10:42 | PN- Pulmonary ---
Subjective HPI/Critical Care Issues: pt seen and examined wheezing dyspnea with minimal exerion sitting in chair speaking in full sentences Objective Current Medications: Current Medications Sig/Bill Start time Last Medication Dose Route Stop Time Status Admin Acetaminophen 325 MG Q6 PRN 05/23 1400 AC 05/24 PO 1847 Acetylcysteine 2 ML BID 05/26 1020 AC INH Albuterol Sulfate 3 ML Q4 05/24 0200 AC 05/26 INH 0921 Azithromycin 500 MG DAILY 05/24 1000 AC 05/25 Sodium Chloride 250 ML IV 1050 Benzonatate 100 MG BID PRN 05/23 2200 AC 05/25 PO 1420 Bisacodyl 10 MG ONCE ONE 05/25 1815 DC 05/25 FL 05/25 181 1847 Bisacodyl 5 MG DAILY PRN 05/23 1715 AC 05/26 PO 0651 Budesonide/ 2 PUF BID 05/23 2200 AC 05/26 Formoterol Fumarate INH 1012 Ceftriaxone Sodium 1,000 MG DAILY 05/24 1000 AC 05/26 IV 1012 [place] Butter/Shark 1 EYAL BID 05/24 1000 AC 05/26 Liver Oil TOP 1012 Diltiazem HCl 240 MG DAILY 05/24 1000 AC 05/26 PO 1011 Diltiazem HCl 30 MG DAILY PRN 05/23 1730 AC PO Docusate Sodium 100 MG BID 05/25 1000 AC 05/26 PO 0723 Enoxaparin Sodium 40 MG DAILY 05/23 1356 AC 05/23 SC 1428 Ergocalciferol 50,000 IU Q168H 05/25 1000 AC 05/25 PO 0931 Furosemide 20 MG DAILY PRN 05/23 1730 AC 05/26 PO 1011 Guaifenesin 10 ML Q6P PRN 05/24 1430 AC 05/26 PO 0718 Insulin Aspart 0 TIDAC 05/23 1915 AC 05/26 SC 0900 Ipratropium [place] 2.5 ML Q4 05/24 0200 AC 05/26 INH 0921 Lactobacillus 1 CAP ONCE ONE 05/25 2030 DC 05/25 Acidophilus PO 05/25 2031 2113 Lactulose 20 GM BID 05/26 1022 AC PO 05/26 2201 Lorazepam 1 MG QPM 05/23 2200 AC 05/25 PO 2225 Lorazepam 0.5 MG BID PRN 05/23 2200 AC PO 05/30 2159 Methylprednisolone 30 MG Q12 05/24 1000 AC 05/26 IV 1012 Montelukast Sodium 10 MG AT BEDTIME 05/24 2200 AC 05/25 PO 2201 Morphine Sulfate 4 MG Q4P PRN 05/23 1400 AC IV Multivitamins 1 TAB DAILY 05/24 1000 AC 05/26 Therapeutic PO 1011 Omeprazole 20 MG DAILY PRN 05/23 1730 AC PO Oxycodone/ 1 TAB Q6 PRN 05/23 1400 AC Acetaminophen PO Polyethylene Glycol 17 GM DAILY 05/24 1000 AC 05/26 PO 0900 Polyethylene Glycol 17 GM DAILY PRN 05/23 1715 AC PO Senna/Docusate Sodium 1 TAB QPM 05/23 2200 AC 05/25 PO 220 Sodium Polystyrene 30 ML 11:00 AM 05/25 1100 DC 05/25 Sulfonate PO 1133 Vital Signs & I&O Last 24 Hrs of Vitals and I&O: Vital Signs Date Time Temp Pulse Resp B/P Pulse O2 O2 Flow FiO2 Ox Delivery Rate 05/26 0924 96 Nasal 2.0L Cannula 05/26 0735 97.7 101 20 136/70 91 Nasal 2.5L Cannula 05/26 0042 91 Nasal 2.5L Cannula 05/26 0000 91 Nasal 2.5L Cannula 05/25 2257 98.3 114 20 136/76 91 Nasal Cannula 05/25 1635 90 Nasal 2.5L Cannula 05/25 1600 Nasal 2.5L Cannula 05/25 1454 98.6 96 20 122/74 91 Nasal 2.5L Cannula 05/25 1228 93 Nasal 2.5L Cannula Intake & Output 05/26 1600 05/26 0800 05/26 0000 Intake Total 250 480 Output Total Balance 250 480 Intake, Oral 250 480 Number 1 Bowel Movements Exam Other Physical Findings: General - Alert, awake and oriented, mild distress HEENT - normocephalic, atraumatic Cardiovascular - S1, S2 Lungs - bilateral wheezing, prolonged end expiratory phase Abdomen - soft, bowel sounds positive, no tenderness Extremities - without edema or cyanosis Results Last 24 Hrs of Lab Results: Laboratory Tests 05/26/16 0800: Anion Gap 6, Estimated GFR > 60, BUN/Creatinine Ratio 25.0 Impression/Plan Impression/Plan Impression/Plan: Impression 76 year old woman known to me from the office and previous admissions. * Acute on chronic hypercarbic and-toxemic respiratory failure secondary to COPD exacerbation likely secondary to either bronchitis or right lower lobe community -acquired pneumonia * Diabetes/steroid-induced hyperglycemia Plan - TRC/nebs - complete course of abx - currently on Ceftriaxone and Zithromax - KEEP Solu-Medrol 30 mg IV every 12, if improves, prednisone 60mg 05/27 - case management for home care services - Monitor fingersticks closely given steroid induced hyperglycemia - spo2 goal >88% - continue Symbicort with rinsing of the mouth Patient remains full code at this point DVT prophylaxis at all times
[2016-05-26 14:17] VITALS: BP 130/60
[2016-05-26 22:45] VITALS: BP 158/76
[2016-05-27] VITALS: BP 154/78
--- NOTE | 2016-05-27 07:10 | PN- Housestaff ---
See Addendum Subjective Follow-up For: #COPD exacerbation #Community-acquired pneumonia #Acute hypoxic hypercapnic respiratory failure #Multifocal atrial tachycardia Subjective: Patient was seen and examined this morning, she looked much better, cough still dry, had bowel movement yesterday. Patient continued to have palpitation on exertion at baseline. Review of Systems Constitutional: Reports: see HPI. Objective Last 24 Hrs of Vital Signs/I&O Vital Signs Date Time Temp Pulse Resp B/P Pulse O2 O2 Flow FiO2 Ox Delivery Rate 05/27 0827 95 Nasal 2.5L Cannula 05/27 0800 Nasal 2.5L Cannula 05/27 0740 98.3 91 20 144/82 92 Nasal Cannula 05/27 0000 Nasal 2.5L Cannula 05/27 0000 94 154/78 91 Nasal Cannula 05/26 2245 98.5 103 20 158/76 92 Nasal 2.5L Cannula 05/26 1800 91 Nasal 2.5L Cannula 05/26 1417 98.5 92 20 130/60 93 Nasal 2.5L Cannula 05/26 0924 96 Nasal 2.0L Cannula Intake & Output 05/27 1600 05/27 0800 05/27 0000 Intake Total 260 250 Output Total 0 Balance 260 250 Intake, IV 60 50 Intake, Oral 200 200 Number 1 1 Bowel Movements Output, Urine 0 Physical Exam General Appearance: Alert, Oriented X3, Cooperative, No Acute Distress Skin: No Rashes, No Breakdown, No Significant Lesion HEENT: Atraumatic, PERRLA, EOMI, Mucous Membr. moist/pink Neck: Supple, No JVD Cardiovascular: Regular Rate, Normal S1, Normal S2, No Murmurs Lungs: Clear to Auscultation, Normal Air Movement, No whheeze Abdomen: Normal Bowel Sounds, Soft, No Tenderness Neurological: Normal Gait, Normal Speech, Strength at 5/5 X4 Ext, Normal Tone, Sensation Intact, Cranial Nerves 3-12 NL, Reflexes 2+ Extremities: No Clubbing, No Cyanosis, No Edema, Normal Pulses Assessment/Plan Assessment: Mr. Chase is a 76 year old female with past medical history of pulmonary hypertension, chronic COPD on home oxygen of 2.5L, chronic steroids 2.5mg daily , multifocal atrial tachycardia on diltiazem presented to ED with chief complaint of shortness of breath. Chest x-ray showed IMPRESSION: Small right pleural effusion. Hazy right mid to lower lung opacity could represent atelectasis or pneumonia. Problem list #COPD exacerbation #Community-acquired pneumonia #Acute hypoxic hypercapnic respiratory failure #Multifocal atrial tachycardia #COPD exacerbation #Community-acquired pneumonia #Acute hypoxic hypercapnic respiratory failure -Improved, patient is back to baseline oxygen supplementation 2.5 with saturation 90% -Discontinue IV Solu-Medrol 30 mg twice a day and start prednisone 60 mg daily ( Sucralfate half hour prior to predinsone adminstration for heartburn) -Continue ceftriaxone and azithromycin Day #5 Will discontinue antibiotic after today dose -TRC and nebs, inhaler Symbicort -Continue mucosol inhalation to help expectorating the mucus -Sputum culture pending receipt (she did report dry cough) -Blood culture negative so far -Urine Legionella and Streptococcus antigen negative -Dr. Guan consultation was obtained, thanks recommendation -Robitussin -Montelukast -Tessalon cap 100 mg twice a day as needed -Dr. Turner suggested Xopenex as an alternate to albuterol (approximately 3% less sinus tachycardia as a side effect), I contacted the pharmacy and they stopped carying this medication for the last 2 years #Multifocal atrial tachycardia -Continue Diltiazem 240 mg daily and 13 mg as needed -Continue Frusemide 20 mg daily -Cardiology consultation Dr. Turner was obtained, thanks recommendation -Full up echocardiogram -TSH 0.282 low normal, free T4 0.75 normal -Recommendations to transfer to telemetry if palpitation didn't improve despite clinical respiratory improvement #Steroid-induced hyperglycemia -Continue Accu-Chek before meals -Continue NovoLog sliding scale low-dose -Follow up hemoglobin A1c DVT prophylaxis Lovenox Code full Diet consistent carbohydrate to Consultation pulmonology, cardiology and PT Problem List: 1. COPD EXACERBATION 2. Pneumonia Pain Ratin Pain Location: None Pain Goal: Pain 4 or less Pain Plan: Mild pain pathway Tomorrow's Labs & Rationales: CBC, CMP
--- NOTE | 2016-05-27 07:31 | Discharge Summary ---
Visit Information Visit Dates Admission Date: 05/23/16 Discharge Date: 06/01/16 Hospital Course Course Attending Physician: MUSHTAQ MCCULLOUGH MD [facility]: Mr. Chase is a 76 year old female with past medical history of pulmonary hypertension, chronic COPD on home oxygen of 2.5L, chronic steroids 2.5mg daily, multifocal atrial tachycardia on diltiazem presented to ED with chief complaint of shortness of breath, nonproductive cough, sore throat for the last 4 days. Patient was admitted to general medical floor for the following problems: Problem list #COPD exacerbation #Community-acquired pneumonia #Acute hypoxic hypercapnic respiratory failure #Multifocal atrial tachycardia #Steroid-induced hyperglycemia #COPD exacerbation #Community-acquired pneumonia #Acute hypoxic hypercapnic respiratory failure -Pulmonary consultation Dr. Guan was obtained -On presentation to ED, patient desats to 86% on room air, was given 125 mg Solu -Medrol and nasal oxygen at 4L -Shortly after admission, oxygen flow was titrated to home level 2.5 L with saturation above 88% -Patient received initially IV Solu-Medrol and was eventually switched to oral prednisone 60 mg daily with tapering by 10 every 2 days, patient was instructed to continue on chronic prednisone 5 mg daily after completing the tapering schedule -On admission, chest x-ray revealed right lung opacity that could represent atelectasis or pneumonia, patient was treated with IV ceftriaxone and azithromycin for total of 5 days -For shortness of breath and cough, patient received TRC and nebs, inhaler Symbicort, mucosol, Robitussin and Tessalon -Sputum culture was an obtainable because of dry cough -Blood culture negative -Urine Legionella and Streptococcus antigen negative -We had discussion about pulmonary rehabilitation and short-term rehabilitation given patient end-stage COPD, patient refused any rehabilitation saying that "it never worked", patient was discharged with home health services #Multifocal atrial tachycardia -Antalgic consultation was obtained for history of MAT, we continued home medication Continue Diltiazem 240 mg daily and 13 mg as needed and Frusemide 20 mg daily -TSH and free T4 was obtained to rule out hyperthyroidism as a cause of her tachycardia, results were within normal TSH 0.282 low normal, free T4 0.75 normal -There was a recommendation to transfer to telemetry if palpitation Presist despite clinical improvement of respiratory disease, patient maintained to be at her baseline throughout hospital stay with palpitation mainly on exertion -Echocardiogram 04/2016 Normal size left ventricle. Borderline to mild concentric left ventricular hypertrophy. No obvious regional wall motion abnormalities. Normal left ventricular ejection fraction visually estimated at 65%. Abnormal relaxation filling pattern of the left ventricle for age (stage 1 diastolic dysfunction). Normal right ventricular size and function. Normal atrial size. Trace mitral regurgitation. Mild tricuspid regurgitation. Mild pulmonary hypertension. Trace pulmonic regurgitation. #Steroid-induced hyperglycemia -Patient reported history of hyperglycemia with steroid use, was maintained on NovoLog sliding scale low-dose and Accu-Chek before meals, blood sugar was well- controlled throughout treatment course -Hemoglobin A1c 6.2 DVT prophylaxis Lovenox Code full Diet consistent carbohydrate to Consultation pulmonology and cardiology Allergies: Coded Allergies: Iodinated Contrast Media - Oral and (IODINATED CONTRAST MEDIA - IV DYE) ( Intermediate, HIVES, RASH 04/27/15) Penicillins (Intermediate, HIVES 04/27/15) Sulfa (Sulfonamide Antibiotics) (Intermediate, HIVES 04/27/15) methylprednisolone (Mild, "TOO MANY SIDE EFFECTS, HIGH SUGAR, LOOSE TEETH, NECK BONES" 04/27/15) Disposition Summary Disposition Principal Diagnosis: Acute hypoxic respiratory failure Additional Diagnosis: COPD exacerbation Community-acquired pneumonia Discharge Disposition: home health services Discharge Instructions General Discharge Information Code Status: Full Code Patient's Diet: Heart Healthy diet Patient's Activity: As tolerated Follow-Up Instructions/Appts: -Please follow-up with your primary care physician within 1 week after discharge -Please follow up with your foreign language teacher Dr. Guan after discharge -Please follow-up with your tire inspector Dr. Turner after discharge -Please finish the prednisone taper and start to take prednisone 5 mg once daily after that starting from 06/07/16 Medications at Discharge Discharge Medications: Stop taking the following medications: Prednisone (Prednisone) 2.5 MG TABLET ORAL DAILY Azithromycin (Azithromycin) 250 MG TABLET ORAL DAILY Qty = 6 Continue taking these medications: Lorazepam (Lorazepam) 1 MG TABLET 1 Tablet ORAL Every night Comments: Last Taken: 05/31/16 Time: 10:30PM Lorazepam (Ativan) 0.5 MG TABLET 1 Tablet ORAL 2 x Daily as needed as needed for ANXIETY Comments: NOT GIVEN WHILE IN HOSPITAL Multivitamin (One Daily Multivitamin) 1 EACH TABLET 1 Tablet ORAL DAILY Comments: Last Taken: 06/01/16 Time: 10AM Docusate Sodium (Colace) 100 MG CAPSULE 1 Capsule ORAL Every night Comments: Last Taken: 06/01/16 Time: 10AM Budesonide/Formoterol Fumarate (Symbicort 160-4.5 Mcg Inhaler) 160 MCG-4.5 MCG/ ACTUATION HFA.AER.AD 2 Puff Inhale through mouth TWICE DAILY Comments: Last Taken: 06/01/16 Time: 10AM Diltiazem HCl (Cardizem Cd) 240 MG CAP.ER.24H 1 Capsule ORAL DAILY Comments: Last Taken: 06/01/16 Time: 10AM Meclizine HCl (Meclizine HCl) 12.5 MG TABLET 1 Tablet ORAL TWICE DAILY Comments: Last Taken: 06/01/16 Time: 9AM Sennosides/Docusate Sodium (Senna-Docusate Sodium Tablet) 8.6 MG-50 MG TABLET 1 Tablet ORAL Every night Comments: Last Taken: 05/25/16 Time: 10PM Benzonatate (Benzonatate) 100 MG CAPSULE 1 Capsule ORAL 2 x Daily as needed as needed for COUGH Comments: Last Taken: 05/28/16 Time: 9AM Diltiazem HCl (Diltiazem HCl) 30 MG TABLET 1 Tablet ORAL DAILY as needed for HEART Qty = 30 Comments: NOT GIVEN WHILE IN HOSPITAL Montelukast Sodium (Singulair) 10 MG TABLET 1 Tablet ORAL DAILY Comments: Last Taken: 05/31/16 Time: 10PM Ergocalciferol (Vitamin D2) (Vitamin D2) 50,000 UNIT CAPSULE 1 Capsule ORAL Once a Week Qty = 4 Comments: Last Taken: 06/01/16 Time: 10AM Furosemide (Furosemide) 20 MG TABLET 1 Tablet ORAL DAILY as needed for WATER PILL Comments: Last Taken: 05/26/16 Time: 10AM Ipratropium/Albuterol Sulfate (Iprat-Albut 0.5-3(2.5) MG/3 Ml) 0.5 MG-3 MG (2.5 MG BASE)/3 ML AMPUL.NEB 1 Inhalation ORAL 4 TIMES A DAY Qty = 270 Comments: Last Taken: 06/01/16 Time: 11AM Omeprazole (Omeprazole) 20 MG CAPSULE.DR 1 Capsule ORAL DAILY as needed for ACID Comments: NOT GIVEN WHILE IN HOSPITAL Polyethylene Glycol 3350 (Miralax) 17 GRAM POWD.PACK 1 Packet ORAL DAILY as needed for CONSTIPATION Instructions: dissolve in water Comments: Last Taken: 05/31/16 Time: 3PM Start taking the following new medications: Prednisone (Prednisone) 10 MG TABLET 1 Tablet ORAL DAILY Qty = 9 No Refills Instructions: PLEASE TAKE 3 TABS ON 06/02 pLEASE TAKE 2 TABS ON 06/03, 06/04 PLEASE TAKE 1 TAB ON 06/05 AND 06/06 Comments: Last Taken: 06/01/16 Time: 10AM Guaifenesin (Guaifenesin) 100 MG/5 ML LIQUID 10 Milliliters ORAL EVERY SIX HOURS NEEDED as needed for COUGH Qty = 1 No Refills Comments: Last Taken: 05/31/16 Time: 7AM Sucralfate (Sucralfate) 1 GRAM/10 ML ORAL.SUSP 1 Gram ORAL DAILY Qty = 1 No Refills Instructions: GIVE 1/2 HOUR PRIOR TO PREDINSONE DOSE Comments: Last Taken: 06/01/16 Time: 9AM Prednisolone (Millipred) 5 MG TABLET 5 Tablet ORAL DAILY Qty = 90 No Refills Instructions: PLEASE START TAKING 1 TAB EVERY DAY FROM 06/07 Copies To: MEGHANA HOWARD,EDILBERTO Love; WILMER HOWARD,Jasmeet KEVEN; JAKE HOWARD,FREEMAN Attending MD Review Statement Documenting Attending: AIDEE PINA M.D Other Findings: Patient is a very pleasant lady with severe COPD. She has been stable at home despite symptoms with mild exertion until 4 days prior to presentation when she developed nonproductive cough and worsening dyspnea. She presented to the emergency room for evaluation and was diagnosed with COPD exacerbation secondary to community-acquired pneumonia. She has responded to medical therapy. Her recovery however has been slow. Patient lives alone and does have home care services however was very hesitant about being discharged prematurely due to concerns of worsening symptoms and fear of returning to the emergency room. She was followed closely by her longtime foreign language teacher Freeman Guan MD. Her desire was to be discharged home once cleared by him. Her goals are to be able to return to simple function at home such as combing her hair and dressing up herself. On 06/01/2016 she was cleared by her foreign language teacher to be discharged home. Patient was in agreement with this plan. She was discharged home in stable condition and will be following up with her foreign language teacher as an outpatient
[2016-05-27 07:40] VITALS: BP 144/82
--- NOTE | 2016-05-27 09:42 | NUR ---
Physical Therapy: Consult received and chart reviewed. Pt observed by this PT ambulating around room I. Nursing has consistently been documenting independent mobility. Acute skilled PT is not indicated at this time. Thank you.
--- NOTE | 2016-05-27 12:20 | PN- Pulmonary ---
Subjective HPI/Critical Care Issues: pt seen and examined doing better wheezing improved allergic to sulfa, no mucomyst was used ready for po transition of steroids fatigued Objective Current Medications: Current Medications Sig/Bill Start time Last Medication Dose Route Stop Time Status Admin Acetaminophen 325 MG Q6 PRN 05/23 1400 AC 05/27 PO 1049 Acetylcysteine 2 ML BID 05/26 1020 DC INH Albuterol Sulfate 3 ML EVERY 4 HRS/AWAKE 05/27 0800 AC 05/27 INH 1115 Albuterol Sulfate 3 ML Q4 05/24 0200 DC 05/26 INH 2143 Azithromycin 250 MG DAILY 05/27 1145 AC PO 05/27 2300 Azithromycin 500 MG DAILY 05/24 1000 DC 05/26 Sodium Chloride 250 ML IV 05/27 2200 1103 Benzonatate 100 MG BID PRN 05/23 2200 AC 05/25 PO 1420 Bisacodyl 5 MG DAILY PRN 05/23 1715 AC 05/26 PO 0651 Budesonide/ 2 PUF BID 05/23 2200 AC 05/27 Formoterol Fumarate INH 1051 Ceftriaxone Sodium 1,000 MG DAILY 05/24 1000 DC 05/26 IV 05/27 2300 1012 [place] Butter/Shark 1 EYAL BID 05/24 1000 AC 05/27 Liver Oil TOP 1053 Diltiazem HCl 240 MG DAILY 05/24 1000 AC 05/27 PO 1049 Diltiazem HCl 30 MG DAILY PRN 05/23 1730 AC PO Docusate Sodium 100 MG BID 05/25 1000 AC 05/27 PO 1049 Enoxaparin Sodium 40 MG DAILY 05/23 1356 AC 05/23 SC 1428 Ergocalciferol 50,000 IU Q168H 05/25 1000 AC 05/25 PO 0931 Furosemide 20 MG DAILY PRN 05/23 1730 AC 05/26 PO 1011 Guaifenesin 10 ML Q6P PRN 05/24 1430 AC 05/26 PO 0718 Insulin Aspart 0 TIDAC 05/23 1915 AC 05/27 SC 0752 Ipratropium [place] 2.5 ML EVERY 4 HRS/AWAKE 05/27 0800 AC 05/27 INH 1115 Ipratropium [place] 2.5 ML Q4 05/24 0200 DC 05/26 INH 2143 Lactulose 20 GM BID 05/26 1022 DC 05/26 PO 05/26 2201 1232 Lorazepam 1 MG QPM 05/23 2200 AC 05/26 PO 2201 Lorazepam 0.5 MG BID PRN 05/23 2200 AC PO 05/30 2159 Methylprednisolone 30 MG Q12 05/24 1000 DC 05/26 IV 2201 Montelukast Sodium 10 MG AT BEDTIME 05/24 2200 AC 05/26 PO 2201 Morphine Sulfate 4 MG Q4P PRN 05/23 1400 AC IV Multivitamins 1 TAB DAILY 05/24 1000 AC 05/27 Therapeutic PO 1049 Omeprazole 20 MG DAILY PRN 05/23 1730 AC PO Oxycodone/ 1 TAB Q6 PRN 05/23 1400 AC Acetaminophen PO Patient Medication 1 ED .STK-MED ONE 05/26 1359 DC Teaching ED 05/26 1400 Polyethylene Glycol 17 GM DAILY 05/24 1000 AC 05/26 PO 0900 Polyethylene Glycol 17 GM DAILY PRN 05/23 1715 AC PO Prednisone 60 MG DAILY 05/27 1000 AC PO Senna/Docusate Sodium 1 TAB QPM 05/23 2200 AC 05/25 PO 2201 Sucralfate 1 GM DAILY 05/27 1033 AC PO Vital Signs & I&O Last 24 Hrs of Vitals and I&O: Vital Signs Date Time Temp Pulse Resp B/P Pulse O2 O2 Flow FiO2 Ox Delivery Rate 05/27 0827 95 Nasal 2.5L Cannula 05/27 0800 Nasal 2.5L Cannula 05/27 0740 98.3 91 20 144/82 92 Nasal Cannula 05/27 0000 Nasal 2.5L Cannula 05/27 0000 94 154/78 91 Nasal Cannula 05/26 2245 98.5 103 20 158/76 92 Nasal 2.5L Cannula 05/26 1800 91 Nasal 2.5L Cannula 05/26 1417 98.5 92 20 130/60 93 Nasal 2.5L Cannula Intake & Output 05/27 1600 05/27 0800 05/27 0000 Intake Total 260 250 Output Total 0 Balance 260 250 Intake, IV 60 50 Intake, Oral 200 200 Number 1 1 Bowel Movements Output, Urine 0 Patient 132 lb Weight Exam Other Physical Findings: General - Alert, awake and oriented, mild distress HEENT - normocephalic, atraumatic Cardiovascular - S1, S2 Lungs - bilateral wheezing improved, prolonged end expiratory phase Abdomen - soft, bowel sounds positive, no tenderness Extremities - without edema or cyanosis Impression/Plan Impression/Plan Impression/Plan: Impression 76 year old woman known to me from the office and previous admissions. * Acute on chronic hypercarbic and-toxemic respiratory failure secondary to COPD exacerbation likely secondary to either bronchitis or right lower lobe community -acquired pneumonia * Diabetes/steroid-induced hyperglycemia Plan - TRC/nebs - stop abx today - dc solumedrol, begin prednisone 60mg today with a slow taper, every 3 days by 10mg - case management for home care services - Monitor fingersticks closely given steroid induced hyperglycemia - spo2 goal >88% - continue Symbicort with rinsing of the mouth Patient remains full code at this point DVT prophylaxis at all times Recommend physical therapy evaluation
--- NOTE | 2016-05-27 12:39 | ECHOCARDIOGRAM REPORT ---
PANKAJ MORALES Age: 76 : 1940 Gender: F Exam Date: 05/26/2016 12:53 Exam Location: [place] Ht (in): 58 Wt (lb): 131 BSA: 1.58 BP: / Ordering Physician: ESPERANZA RUCKER, Referring Physician: Jamar Turner MD Technologist: Rylee Smart [facility] Room Number: 227-01 Indications: ARRHYTHMIAS Rhythm: Sinus Technical Quality: Technically difficult study, Poor FINDINGS Left Ventricle Normal size left ventricle. Borderline to mild concentric left ventricular hypertrophy. No obvious regional wall motion abnormalities. Normal left ventricular ejection fraction visually estimated at 65%. Abnormal relaxation filling pattern of the left ventricle for age (stage 1 diastolic dysfunction). Right Ventricle Normal right ventricular size and function. Right Atrium Normal right atrial size. Left Atrium Normal left atrial size. Mitral Valve Mild mitral annular calcification. Mitral valve thickened. Trace mitral regurgitation. Aortic Valve Trileaflet aortic valve. Mild aortic sclerosis. No aortic valve stenosis or regurgitation. Tricuspid Valve Structurally normal tricuspid valve. Mild tricuspid regurgitation. Mild pulmonary hypertension. Right ventricular systolic pressure estimated to be elevated at 41 mmHg. Pulmonic Valve Pulmonic valve not well visualized, grossly normal. Trace pulmonic regurgitation. Pericardium No pericardial effusion. Great Vessels Normal size aortic root. CONCLUSIONS Normal size left ventricle. Borderline to mild concentric left ventricular hypertrophy. No obvious regional wall motion abnormalities. Normal left ventricular ejection fraction visually estimated at 65%. Abnormal relaxation filling pattern of the left ventricle for age (stage 1 diastolic dysfunction). Normal right ventricular size and function. Normal atrial size. Trace mitral regurgitation. Mild tricuspid regurgitation. Mild pulmonary hypertension. Trace pulmonic regurgitation. Jamar Turner M.D. (Electronically Signed) Final Date: 27 May 2016 12:38 MEASUREMENTS (Male / Female) Normal Values 2D ECHO LV Diastolic Diameter PLAX 3.9 cm 4.2 - 5.9 / 3.9 - 5.3 cm LV Systolic Diameter PLAX 2.4 cm 2.1 - 4.0 cm LV Fractional Shortening PLAX 38.5 % 25 - 46 % LV Ejection Fraction 2D Teich 69.4 % IVS Diastolic Thickness 0.9 cm LVPW Diastolic Thickness 1.1 cm LV Relative Wall Thickness 0.5 RV Internal Dim ED PLAX 2.5 cm 1.9 - 3.8 cm LVOT Diameter 1.9 cm Aortic Root Diameter 2.9 cm LA Systolic Diameter LX 2.9 cm 3.0 - 4.0 / 2.7 - 3.8 cm LA Volume 25.0 cm 18 - 58 / 22 - 52 cm DOPPLER AV Peak Velocity 150.0 cm/s AV Peak Gradient 9.0 mmHg AV Mean Velocity 95.3 cm/s AV Mean Gradient 4.0 mmHg AV Velocity Time Integral 32.7 cm LVOT Peak Velocity 126.0 cm/s LVOT Peak Gradient 6.4 mmHg LVOT Mean Velocity 79.3 cm/s LVOT Mean Gradient 3.0 mmHg LVOT Velocity Time Integral 25.4 cm LVOT Stroke Volume 72.0 cm AV Area Cont Eq vti 2.2 cm AV Area Cont Eq pk 2.4 cm MV Peak Velocity 142.0 cm/s MV Peak Gradient 8.1 mmHg MV Mean Velocity 78.5 cm/s MV Mean Gradient 3.0 mmHg Mitral E Point Velocity 91.3 cm/s Mitral A Point Velocity 132.0 cm/s Mitral E to A Ratio 0.7 MV PHT Velocity 100.0 cm/s MV Deceleration [place] 411.0 cm/s MV Pressure Half Time 73.0 ms MV Area PHT 3.0 cm MV Deceleration Time 169.0 ms TR Peak Velocity 298.0 cm/s TR Peak Gradient 35.5 mmHg Right Atrial Pressure 5.0 mmHg Pulmonary Artery Systolic Pressu 40.5 mmHg Right Ventricular Systolic Press 40.5 mmHg PV Peak Velocity 112.0 cm/s PV Peak Gradient 5.0 mmHg PV Mean Velocity 74.5 cm/s PV Mean Gradient 3.0 mmHg PV Velocity Time Integral 19.8 cm LV E' Lateral Velocity 9.0 cm/s Mitral E to LV E' Lateral Ratio 10.1 LV E' Septal Velocity 7.7 cm/s Mitral E to LV E' Septal Ratio 11.9
[2016-05-27] MEDS ORDERED: PREDNISONE10 M2 PO (14:32)
[2016-05-27 14:34] VITALS: BP 148/60
--- NOTE | 2016-05-27 14:35 | Patient Discharge Instructions ---
Discharge Instructions General Discharge Information You were seen/treated for: COPD exacerbation Community-acquired pneumonia Special Instructions: -Please follow-up with your primary care physician within 1 week after discharge -Please follow up with your quality control tech Dr. Guan after discharge -Please follow-up with your product management internship Dr. Turner after discharge -Please finish the prednisone taper and start to take prednisone 5 mg once daily after that starting from 06/07/16 Acute Coronary Syndrome Inclusion Criteria At DC or during hospital stay patient has or had the following: ACS DIAGNOSIS No Discharge Core Measures Meds if any: Prescribed or Continued at Discharge Meds if any: NOT Prescribed or Continued at Discharge Congestive Heart Failure Inclusion Criteria At DC or during hospital stay patient has or had the following: CHF DIAGNOSIS No Discharge Core Measures Meds if any: Prescribed or Continued at Discharge Meds if any: NOT Prescribed or Continued at Discharge Cerebrovascular accident Inclusion Criteria At DC or during hospital stay patient has or had the following: CVA/TIA Diagnosis No Discharge Core Measures Meds if any: Prescribed or Continued at Discharge Meds if any: NOT Prescribed or Continued at Discharge Venous thromboembolism Inclusion Criteria VTE Diagnosis No VTE Type NONE VTE Confirmed by (Test) NONE Discharge Core Measures - Per Current guidelines, there needs to be overlap - treatment for the first 5 days of Warfarin therapy. - If discharged on Warfarin prior to 5 days of - overlap therapy, the patient will need to be - assessed for post discharge needs including - *Post discharge parental anticoagulation - *Warfarin and/or parental anticoagulation education - *Follow up date to check INR post discharge At least 5 days overlap therapy as Inpatient Yes Meds if any: Prescribed or Continued at Discharge Note: Overlap Therapy is Warfarin and Anticoagulant Meds if any: NOT Prescribed or Continued at Discharge
[2016-05-27 22:51] VITALS: BP 154/80
[2016-05-28 07:27] VITALS: BP 150/80
--- NOTE | 2016-05-28 09:09 | PN- Housestaff ---
WILLIAM HOWARD,[facility] 05/28/16 0908: Subjective Follow-up For: #COPD exacerbation #Community-acquired pneumonia #Acute hypoxic hypercapnic respiratory failure Subjective: Patient is seen and examined at bedside. Patient complains of increased shortness of breath when minimally ambulating to the bathroom, also reports that she is not 100% with a strength and does not feel stable for discharge. She also endorses dizziness and states that normally at home she takes meclizine 12.5 mg as needed for dizziness. She denies any other acute complaints including fever, chills, nausea, vomiting, chest pain, palpitation , or abdominal pain or dysuria. Review of Systems Constitutional: Reports: no symptoms. Objective Last 24 Hrs of Vital Signs/I&O Vital Signs Date Time Temp Pulse Resp B/P Pulse O2 O2 Flow FiO2 Ox Delivery Rate 05/28 1428 98.3 89 18 112/80 93 Nasal 2.5L Cannula 05/28 1158 91 Nasal 2.5L Cannula 05/28 0812 93 Nasal 2.5L Cannula 05/28 0800 93 Nasal 2.5L Cannula 05/28 0727 98.2 83 20 150/80 95 Nasal 2.5L Cannula 05/28 0000 93 Nasal 2.5L Cannula 05/27 2251 98.1 97 20 154/80 93 Nasal 2.5L Cannula 05/27 2020 92 Nasal 2.5L Cannula 05/27 1635 92 Nasal 2.5L Cannula 05/27 1600 Nasal 2.5L Cannula Intake & Output 05/28 1600 05/28 0800 05/28 0000 Intake Total 480 50 450 Output Total 2 Balance 480 50 448 Intake, IV 0 Intake, Oral 480 50 450 Number 1 0 Bowel Movements Output, Stool 2 Physical Exam General Appearance: Alert, Oriented X3, Cooperative Other Physical Findings: Skin: No Rashes, No Breakdown, No Significant Lesion HEENT: Atraumatic, PERRLA, EOMI, Mucous Membr. moist/pink Neck: Supple, No JVD Cardiovascular: Regular Rate, Normal S1, Normal S2, No Murmurs Lungs: Clear to Auscultation, Normal Air Movement, No whheeze Abdomen: Normal Bowel Sounds, Soft, No Tenderness Neurological: Normal Gait, Normal Speech, Strength at 5/5 X4 Ext, Normal Tone, Sensation Intact, Cranial Nerves 3-12 NL, Reflexes 2+ Extremities: No Clubbing, No Cyanosis, No Edema, Normal Pulses Current Medications: Current Medications Sig/Bill Start time Last Medication Dose Route Stop Time Status Admin Acetaminophen 325 MG Q6 PRN 05/23 1400 AC 05/28 PO 0556 Albuterol Sulfate 3 ML EVERY 4 HRS/AWAKE 05/27 0800 AC 05/28 INH 1548 Azithromycin 250 MG DAILY 05/27 1145 DC 05/27 PO 05/27 2300 1752 Benzonatate 100 MG BID PRN 05/23 2200 AC 05/28 PO 0848 Bisacodyl 5 MG DAILY PRN 05/23 1715 AC 05/26 PO 0651 Budesonide/ 2 PUF BID 05/23 2200 AC 05/28 Formoterol Fumarate INH 0936 [place] Butter/Shark 1 EYAL BID 05/24 1000 AC 05/28 Liver Oil TOP 0940 Diltiazem HCl 240 MG DAILY 05/24 1000 AC 05/28 PO 0935 Diltiazem HCl 30 MG DAILY PRN 05/23 1730 AC PO Docusate Sodium 100 MG BID 05/25 1000 AC 05/28 PO 0936 Enoxaparin Sodium 40 MG DAILY 05/23 1356 AC 05/23 SC 1428 Ergocalciferol 50,000 IU Q168H 05/25 1000 AC 05/25 PO 0931 Furosemide 20 MG DAILY PRN 05/23 1730 AC 05/26 PO 1011 Guaifenesin 600 MG Q12 05/28 0045 DC PO Guaifenesin 10 ML Q6P PRN 05/24 1430 DC 05/26 PO 0718 Guaifenesin/ 10 ML Q6P PRN 05/28 0100 AC 05/28 Dextromethorphan PO 0100 Insulin Aspart 0 TIDAC 05/23 1915 AC 05/28 SC 1323 Ipratropium [place] 2.5 ML EVERY 4 HRS/AWAKE 05/27 0800 AC 05/28 INH 1548 Lorazepam 1 MG QPM 05/23 2200 AC 05/26 PO 2201 Lorazepam 0.5 MG BID PRN 05/23 2200 AC 05/27 PO 05/30 2159 2215 Meclizine HCl 12.5 MG TID PRN 05/28 1245 AC 05/28 PO 1330 Montelukast Sodium 10 MG AT BEDTIME 05/24 2200 AC 05/27 PO 2215 Morphine Sulfate 4 MG Q4P PRN 05/23 1400 AC IV Multivitamins 1 TAB DAILY 05/24 1000 AC 05/28 Therapeutic PO 0936 Omeprazole 20 MG DAILY PRN 05/23 1730 AC PO Oxycodone/ 1 TAB Q6 PRN 05/23 1400 AC Acetaminophen PO Polyethylene Glycol 17 GM DAILY 05/24 1000 AC 05/26 PO 0900 Polyethylene Glycol 17 GM DAILY PRN 05/23 1715 AC PO Prednisone 60 MG DAILY 05/27 1000 AC 05/28 PO 0936 Senna/Docusate Sodium 1 TAB QPM 05/23 2200 AC 05/25 PO 2201 Sucralfate 1 GM DAILY 05/27 1033 AC 05/28 PO 0848 Assessment/Plan Assessment: Mr. Chase is a 76 year old female with past medical history of pulmonary hypertension, chronic COPD on home oxygen of 2.5L, chronic steroids 2.5mg daily , multifocal atrial tachycardia on diltiazem presented to ED with chief complaint of shortness of breath. Chest x-ray showed IMPRESSION: Small right pleural effusion. Hazy right mid to lower lung opacity could represent atelectasis or pneumonia. Problem list #COPD exacerbation #Community-acquired pneumonia #Acute hypoxic hypercapnic respiratory failure #Multifocal atrial tachycardia #COPD exacerbation #Community-acquired pneumonia #Acute hypoxic hypercapnic respiratory failure -Even though patient is at baseline with her oxygen on 2.5 L, she still reports increased shortness of breath minimal ambulation to the bathroom. She also reports weakness and dizziness. Patient is status post azithromycin antibiotic course and is currently on slow prednisone taper started on 60 mg with a decrement of 10 every 3 days. Patient is not stable for discharge today as she reports increased shortness of breath with minimal ambulation and has an increasing bicarbonate level which were indicated worsening of her respiratory status and increased CO2 retention, will therefore continue current regimen including TRC nebs and reassess tomorrow morning. #Multifocal atrial tachycardia -Continue Diltiazem 240 mg daily and 13 mg as needed -Continue Frusemide 20 mg daily -Cardiology consultation Dr. Turner was obtained, thanks recommendation -Full up echocardiogram -TSH 0.282 low normal, free T4 0.75 normal -Recommendations to transfer to telemetry if palpitation didn't improve despite clinical respiratory improvement #Steroid-induced hyperglycemia -Continue Accu-Chek before meals -Continue NovoLog sliding scale low-dose -Follow up hemoglobin A1c DVT prophylaxis Lovenox Code full Diet consistent carbohydrate to Consultation pulmonology, cardiology and PT Problem List: 1. COPD EXACERBATION Pain Ratin Pain Location: none Pain Goal: Remain pain free Pain Plan: Per pain pathway Tomorrow's Labs & Rationales: BEP-trending bicarbonate in the setting of COPD exacerbation MICHAEL HOWARD,[facility] 05/28/16 1021: Attending MD Review Statement Attending Statement Attending MD Statement: examined this patient, discuss w/resident/PA/BANANA EXPERT, agreed w/resident/PA/BANANA EXPERT, reviewed EMR data (avail) Attending Assessment/Plan: Pt reports that sl improvement in her breathing, however, not at baseline. Lives alone at home, Doesn't fill like has the strength today. On prednisone taper. f/u Pulm eval today. Likely D/C in am.
--- NOTE | 2016-05-28 13:11 | PN- Pulmonary ---
Subjective HPI/Critical Care Issues: The patient is awake and alert. She is extremely anxious. She continues to have ongoing issues with shortness of breath. The patient cannot walk to the bathroom without having extreme shortness of breath. She continues to wheeze. She has ongoing dry cough but is having difficulty producing sputum. She is not willing to go to pulmonary rehabilitation, and she is requesting her steroids be tapered. She does not tolerate BiPAP therapy. Objective Current Medications: Current Medications Sig/Bill Start time Last Medication Dose Route Stop Time Status Admin Acetaminophen 325 MG Q6 PRN 05/23 1400 AC 05/28 PO 0556 Albuterol Sulfate 3 ML EVERY 4 HRS/AWAKE 05/27 0800 AC 05/28 INH 1145 Azithromycin 250 MG DAILY 05/27 1145 DC 05/27 PO 05/27 2300 1752 Benzonatate 100 MG BID PRN 05/23 2200 AC 05/28 PO 0848 Bisacodyl 5 MG DAILY PRN 05/23 1715 AC 05/26 PO 0651 Budesonide/ 2 PUF BID 05/23 2200 AC 05/28 Formoterol Fumarate INH 0936 [place] Butter/Shark 1 EYAL BID 05/24 1000 AC 05/28 Liver Oil TOP 0940 Diltiazem HCl 240 MG DAILY 05/24 1000 AC 05/28 PO 0935 Diltiazem HCl 30 MG DAILY PRN 05/23 1730 AC PO Docusate Sodium 100 MG BID 05/25 1000 AC 05/28 PO 0936 Enoxaparin Sodium 40 MG DAILY 05/23 1356 AC 05/23 SC 1428 Ergocalciferol 50,000 IU Q168H 05/25 1000 AC 05/25 PO 0931 Furosemide 20 MG DAILY PRN 05/23 1730 AC 05/26 PO 1011 Guaifenesin 600 MG Q12 05/28 0045 DC PO Guaifenesin 10 ML Q6P PRN 05/24 1430 DC 05/26 PO 0718 Guaifenesin/ 10 ML Q6P PRN 05/28 0100 AC 05/28 Dextromethorphan PO 0100 Insulin Aspart 0 TIDAC 05/23 1915 AC 05/27 SC 1846 Ipratropium [place] 2.5 ML EVERY 4 HRS/AWAKE 05/27 0800 AC 05/28 INH 1145 Lorazepam 1 MG QPM 05/23 2200 AC 05/26 PO 2201 Lorazepam 0.5 MG BID PRN 05/23 2200 AC 05/27 PO 05/30 2159 2215 Meclizine HCl 12.5 MG TID PRN 05/28 1245 AC PO Montelukast Sodium 10 MG AT BEDTIME 05/24 2200 AC 05/27 PO 2215 Morphine Sulfate 4 MG Q4P PRN 05/23 1400 AC IV Multivitamins 1 TAB DAILY 05/24 1000 AC 05/28 Therapeutic PO 0936 Omeprazole 20 MG DAILY PRN 05/23 1730 AC PO Oxycodone/ 1 TAB Q6 PRN 05/23 1400 AC Acetaminophen PO Polyethylene Glycol 17 GM DAILY 05/24 1000 AC 05/26 PO 0900 Polyethylene Glycol 17 GM DAILY PRN 05/23 1715 AC PO Prednisone 60 MG DAILY 05/27 1000 AC 05/28 PO 0936 Senna/Docusate Sodium 1 TAB QPM 05/23 2200 AC 05/25 PO 2201 Sucralfate 1 GM DAILY 05/27 1033 AC 05/28 PO 0848 Vital Signs & I&O Last 24 Hrs of Vitals and I&O: Vital Signs Date Time Temp Pulse Resp B/P Pulse O2 O2 Flow FiO2 Ox Delivery Rate 05/28 1158 91 Nasal 2.5L Cannula 05/28 0812 93 Nasal 2.5L Cannula 05/28 08 93 Nasal 2.5L Cannula 05/28 0727 98.2 83 20 150/80 95 Nasal 2.5L Cannula 05/28 0000 93 Nasal 2.5L Cannula 05/27 2251 98.1 97 20 154/80 93 Nasal 2.5L Cannula 05/27 2020 92 Nasal 2.5L Cannula 05/27 1635 92 Nasal 2.5L Cannula 05/27 1600 Nasal 2.5L Cannula 05/27 1434 98.7 100 18 148/60 92 Room Air Intake & Output 05/28 1600 05/28 0800 05/28 0000 Intake Total 50 450 Output Total 2 Balance 50 448 Intake, IV 0 Intake, Oral 50 450 Number 0 Bowel Movements Output, Stool 2 Exam General Appearance: awake, anxious, mild distress Head: atraumatic, normal appearance Neck: supple Respiratory: severely diminished breath sounds, bilateral faint expiratory wheezes Cardiovascular: [place] and S2 heard, heart sounds are distant Abdomen: normal bowel sounds, soft, non-tender Extremities: no edema Skin: intact, normal color, warm/dry Impression/Plan Impression/Plan Impression/Plan: 1. Acute on chronic hypercarbic respiratory failure. 2. Superimposed community-acquired pneumonia. 3. Diabetes/steroid-induced hyperglycemia. 4. Anxiety. Recommendations: * Continue nebs/TRC. * The patient is being monitored off antibiotics. * Check a follow-up chest x-ray to evaluate for worsening pleural effusion versus pneumonia. * Continue prednisone, taper as per Dr. Guan's recommendations from 2016. * Continue supplemental oxygen for a goal of greater than 90%. * Continue Symbicort 2 puffs twice daily. * Continue with blood sugar control. * DVT prophylaxis at all times. * The patient refuses short-term rehabilitation/pulmonary rehab. She refuses COPD clinic as she is too short of breath to get to those appointments. * Continue all supportive care. We need to discuss goals of care with the patient and her family.
[2016-05-28 14:28] VITALS: BP 112/80
--- NOTE | 2016-05-28 18:17 | RADIOLOGY REPORT ---
EXAMINATION: XR CHEST CLINICAL INFORMATION: Increased shortness of breath. COMPARISON: Chest radiography 05/23/2016. TECHNIQUE: 2 views of the chest were obtained. FINDINGS: Surgical materials along the peripheral right midlung are redemonstrated. Vertically oriented right linear opacification in the right lower lung likely represents atelectasis/scarring. Adjacent indistinctness of the right hemidiaphragm. No pneumothorax, large pleural effusion, or pulmonary edema. Mediastinal contours are unchanged. Aortic atherosclerotic calcification. IMPRESSION: Right basilar opacification as described above. Findings may represent atelectasis/scarring, however subtle pneumonia is not excluded.
[2016-05-28 21:57] VITALS: BP 150/80
[2016-05-29 07:43] VITALS: BP 148/80
--- NOTE | 2016-05-29 09:12 | PN- Housestaff ---
SOFIYA HOWARD,[facility] 05/29/16 0912: Subjective Follow-up For: #COPD exacerbation #Community-acquired pneumonia #Acute hypoxic hypercapnic respiratory failure Subjective: patient was seen and examined this morning, no acute distress, no overnight events. vital signs are stable. no new compaints. Review of Systems Constitutional: Reports: see HPI. Objective Last 24 Hrs of Vital Signs/I&O Vital Signs Date Time Temp Pulse Resp B/P Pulse O2 O2 Flow FiO2 Ox Delivery Rate 05/29 0825 95 Nasal 2.5L Cannula 05/29 0800 Nasal 2.5L Cannula 05/29 0743 98.5 85 20 148/80 92 Nasal 2.5L Cannula 05/29 0000 92 Nasal 2.5L Cannula 05/28 2157 98.0 97 20 150/80 92 05/28 1600 Nasal 2.5L Cannula 05/28 1549 91 Nasal 2.5L Cannula 05/28 1428 98.3 89 18 112/80 93 Nasal 2.5L Cannula Intake & Output 05/29 1600 05/29 0800 05/29 0000 Intake Total 0 450 Output Total Balance 0 450 Intake, IV 0 Intake, Oral 0 450 Number 0 Bowel Movements Physical Exam General Appearance: Alert, Oriented X3, Cooperative, No Acute Distress Skin: No Rashes, No Breakdown, No Significant Lesion HEENT: Atraumatic, PERRLA, EOMI, Mucous Membr. moist/pink Neck: Supple Cardiovascular: Regular Rate, Normal S1, Normal S2, No Murmurs Lungs: bilateral diffuse wheeze Abdomen: Normal Bowel Sounds, Soft, No Tenderness Neurological: Normal Gait, Normal Speech, Strength at 5/5 X4 Ext, Normal Tone, Sensation Intact, Cranial Nerves 3-12 NL, Reflexes 2+ Extremities: No Clubbing, No Cyanosis, No Edema, Normal Pulses Assessment/Plan Assessment: Mr. Chase is a 76 year old female with past medical history of pulmonary hypertension, chronic COPD on home oxygen of 2.5L, chronic steroids 2.5mg daily , multifocal atrial tachycardia on diltiazem presented to ED with chief complaint of shortness of breath. Chest x-ray showed IMPRESSION: Small right pleural effusion. Hazy right mid to lower lung opacity could represent atelectasis or pneumonia. Problem list #COPD exacerbation #Community-acquired pneumonia #Acute hypoxic hypercapnic respiratory failure #Multifocal atrial tachycardia #COPD exacerbation #Community-acquired pneumonia #Acute hypoxic hypercapnic respiratory failure -Improved, patient is back to baseline (end-stage COPD) oxygen supplementation 2.5 with saturation 90% -Start prednisone 50 mg daily (Sucralfate half hour prior to predinsone adminstration for heartburn) -Continue ceftriaxone and azithromycin Day #5 Will discontinue antibiotic after today dose -TRC and nebs, inhaler Symbicort -Continue mucosol inhalation to help expectorating the mucus -Sputum culture pending receipt (she did report dry cough) -Blood culture negative so far -Urine Legionella and Streptococcus antigen negative -Dr. Guan consultation was obtained, thanks recommendation -Robitussin -Montelukast -Tessalon cap 100 mg twice a day as needed -Dr. Turner suggested Xopenex as an alternate to albuterol (approximately 3% less sinus tachycardia as a side effect), I contacted the pharmacy and they stopped carying this medication for the last 2 years #Multifocal atrial tachycardia -Continue Diltiazem 240 mg daily and 13 mg as needed -Continue Frusemide 20 mg daily -Cardiology consultation Dr. Turner was obtained, thanks recommendation -Full up echocardiogram -TSH 0.282 low normal, free T4 0.75 normal -Recommendations to transfer to telemetry if palpitation didn't improve despite clinical respiratory improvement #Steroid-induced hyperglycemia -Continue Accu-Chek before meals -Continue NovoLog sliding scale low-dose -Follow up hemoglobin A1c DVT prophylaxis Lovenox Code full Diet consistent carbohydrate to Consultation pulmonology, cardiology and PT Problem List: 1. COPD Pain Ratin Pain Location: None Pain Goal: Pain 4 or less Pain Plan: Mild pain pathway Tomorrow's Labs & Rationales: None MICHAEL HOWARD,AMIR 05/29/16 1126: Attending MD Review Statement Attending Statement Attending MD Statement: examined this patient, discuss w/resident/PA/REGIONAL BUSINESS MANAGER, agreed w/resident/PA/REGIONAL BUSINESS MANAGER, discussed with family, reviewed EMR data (avail), discussed with nursing Attending Assessment/Plan: Pt was seen and evaluated. Doesn't feel at baseline, lung exam dec BS and intermittent wheezing. Appreciate pulm input. Cont to slowly taper prednisone, cont other tx. Rest of the plan as per resident's note
--- NOTE | 2016-05-29 12:16 | PN- Pulmonary ---
Subjective HPI/Critical Care Issues: The patient is awake and alert. She continues to be very anxious. She reports that her shortness of breath has slightly improved. She continues to have have a cough and chest congestion but again feels this is improving. She reports decreased wheezing. She denies any chest pain, fever, chills, nausea, vomiting or any other associated symptoms. She wants her prednisone dose reduced due to fluctuations in blood sugar. Objective Current Medications: Current Medications Sig/Bill Start time Last Medication Dose Route Stop Time Status Admin Acetaminophen 325 MG Q6 PRN 05/23 1400 AC 05/29 PO 0320 Albuterol Sulfate 3 ML EVERY 4 HRS/AWAKE 05/27 0800 AC 05/29 INH 1121 Benzonatate 100 MG BID PRN 05/23 2200 AC 05/28 PO 0848 Bisacodyl 5 MG DAILY PRN 05/23 1715 AC 05/26 PO 0651 Budesonide/ 2 PUF BID 05/23 2200 AC 05/29 Formoterol Fumarate INH 1034 [place] Butter/Shark 1 EYAL BID 05/24 1000 AC 05/29 Liver Oil TOP 1037 Diltiazem HCl 240 MG DAILY 05/24 1000 AC 05/29 PO 1033 Diltiazem HCl 30 MG DAILY PRN 05/23 1730 AC PO Docusate Sodium 100 MG BID 05/25 1000 AC 05/29 PO 1033 Enoxaparin Sodium 40 MG DAILY 05/23 1356 AC 05/23 SC 1428 Ergocalciferol 50,000 IU Q168H 05/25 1000 AC 05/25 PO 0931 Furosemide 20 MG DAILY PRN 05/23 1730 AC 05/26 PO 1011 Guaifenesin/ 10 ML Q6P PRN 05/28 0100 AC 05/29 Dextromethorphan PO 0640 Insulin Aspart 0 TIDAC 05/23 1915 AC 05/28 SC 1323 Ipratropium [place] 2.5 ML EVERY 4 HRS/AWAKE 05/27 0800 AC 05/29 INH 1121 Lorazepam 1 MG QPM 05/23 2200 AC 05/28 PO 2109 Lorazepam 0.5 MG BID PRN 05/23 2200 AC 05/27 PO 05/30 2159 2215 Meclizine HCl 12.5 MG TID PRN 05/28 1245 AC 05/29 PO 1034 Montelukast Sodium 10 MG AT BEDTIME 05/24 2200 AC 05/28 PO 2109 Morphine Sulfate 4 MG Q4P PRN 05/23 1400 AC IV Multivitamins 1 TAB DAILY 05/24 1000 AC 05/29 Therapeutic PO 1033 Omeprazole 20 MG DAILY PRN 05/23 1730 AC PO Oxycodone/ 1 TAB Q6 PRN 05/23 1400 AC Acetaminophen PO Polyethylene Glycol 17 GM DAILY 05/24 1000 AC 05/26 PO 0900 Polyethylene Glycol 17 GM DAILY PRN 05/23 1715 AC PO Prednisone 50 MG DAILY 05/29 1000 AC 05/29 PO 1033 Prednisone 60 MG DAILY 05/27 1000 DC 05/28 PO 0936 Senna/Docusate Sodium 1 TAB QPM 05/23 2200 AC 05/25 PO 2201 Sucralfate 1 GM DAILY 05/27 1033 AC 05/29 PO 0916 Vital Signs & I&O Last 24 Hrs of Vitals and I&O: Vital Signs Date Time Temp Pulse Resp B/P Pulse O2 O2 Flow FiO2 Ox Delivery Rate 05/29 0825 95 Nasal 2.5L Cannula 05/29 0800 Nasal 2.5L Cannula 05/29 0743 98.5 85 20 148/80 92 Nasal 2.5L Cannula 05/29 0000 92 Nasal 2.5L Cannula 05/28 2157 98.0 97 20 150/80 92 05/28 1600 Nasal 2.5L Cannula 05/28 1549 91 Nasal 2.5L Cannula 05/28 1428 98.3 89 18 112/80 93 Nasal 2.5L Cannula 05/28 1158 91 Nasal 2.5L Cannula Intake & Output 05/29 1600 05/29 0800 05/29 0000 Intake Total 0 450 Output Total Balance 0 450 Intake, IV 0 Intake, Oral 0 450 Number 0 Bowel Movements Exam General Appearance: awake, anxious, mild distress Head: atraumatic, normal appearance Neck: supple Respiratory: severely diminished breath sounds, bilateral faint expiratory wheezes Cardiovascular: [place] and S2 heard, heart sounds are distant Abdomen: normal bowel sounds, soft, non-tender Extremities: no edema Skin: intact, normal color, warm/dry Results Last 24 Hrs of Lab Results: Laboratory Tests 05/29/16 0705: Anion Gap 4 L, Estimated GFR > 60, BUN/Creatinine Ratio 36.7 H Last 24 Hrs of Micro Results: Cultures are negative to date. Diagnostic Data CXR Findings: Right basilar opacification as described above. Findings may represent atelectasis/scarring, however subtle pneumonia is not excluded. Impression/Plan Impression/Plan Impression/Plan: 1. Acute on chronic hypercarbic respiratory failure. 2. Superimposed community-acquired pneumonia - chest x-ray demonstrates subtle right basilar opacification. 3. Diabetes/steroid-induced hyperglycemia. 4. Anxiety. Recommendations: * Continue nebs/TRC. * Please restart the azithromycin and complete 5 days total. * Decrease prednisone to 50 mg daily. * Continue supplemental oxygen for a goal of greater than 90-92%. * Continue Symbicort 2 puffs twice daily. * Continue with blood sugar control. * DVT prophylaxis at all times. * The patient refuses STR as she feels never helps her. She refuses COPD clinic as she is too short of breath to get to those appointments. * Continue all supportive care. Consider goals of care discussion.
[2016-05-29 14:11] VITALS: BP 130/70
[2016-05-29 22:06] VITALS: BP 140/60
[2016-05-30 06:57] VITALS: BP 130/70
--- NOTE | 2016-05-30 07:10 | PN- Housestaff ---
See Addendum Subjective Follow-up For: COPD exacerbation Subjective: Was seen and examined this morning, she reported feeling better as she was able to walk to the bathroom without shortness of breath, continue to have dry cough, had one bowel movement this morning. Patient denied any fever, chills, chest pain. Patient wants to be on 40 mg prednisone instead of 50 because prednisone gives her high blood sugar readings, wants to discuss with Dr. Guan today. Blood sugar this morning 90 Review of Systems Constitutional: Reports: see HPI. Objective Last 24 Hrs of Vital Signs/I&O Vital Signs Date Time Temp Pulse Resp B/P Pulse O2 O2 Flow FiO2 Ox Delivery Rate 05/30 0824 96 Nasal 2.5L Cannula 05/30 0657 97.4 80 22 130/70 97 Nasal 2.0L Cannula 05/29 2206 98.3 90 22 140/60 94 05/29 1703 93 Nasal 2.5L Cannula 05/29 1600 97 Nasal 2.5L Cannula 05/29 1411 99.0 100 20 130/70 92 Nasal 2.5L Cannula Intake & Output 05/30 1600 05/30 0800 05/30 0000 Intake Total 120 Output Total Balance 120 Intake, Oral 120 Physical Exam General Appearance: Alert, Oriented X3, Cooperative, No Acute Distress Skin: No Rashes, No Breakdown, No Significant Lesion HEENT: Atraumatic, PERRLA, EOMI, Mucous Membr. moist/pink Neck: Supple Cardiovascular: Regular Rate, Normal S1, Normal S2, No Murmurs Lungs: bilateral decreased air entry, prolonged expiratory phase with diffuse wheezing Abdomen: Normal Bowel Sounds, Soft, No Tenderness Neurological: Normal Gait, Normal Speech, Strength at 5/5 X4 Ext, Normal Tone, Sensation Intact, Cranial Nerves 3-12 NL, Reflexes 2+ Extremities: No Clubbing, No Cyanosis, No Edema, Normal Pulses Assessment/Plan Assessment: Mr. Chase is a 76 year old female with past medical history of pulmonary hypertension, chronic COPD on home oxygen of 2.5L, chronic steroids 2.5mg daily , multifocal atrial tachycardia on diltiazem presented to ED with chief complaint of shortness of breath. Chest x-ray showed IMPRESSION: Small right pleural effusion. Hazy right mid to lower lung opacity could represent atelectasis or pneumonia. Problem list #COPD exacerbation #Community-acquired pneumonia #Acute hypoxic hypercapnic respiratory failure #Multifocal atrial tachycardia #COPD exacerbation #Community-acquired pneumonia #Acute hypoxic hypercapnic respiratory failure -Improved, patient is back to baseline (end-stage COPD) oxygen supplementation 2.5 with saturation 90% -Decrease prednisone 40 mg daily (Sucralfate half hour prior to predinsone adminstration for heartburn)x2, 30x2, 20x2, 10x2 and continue on 5 mg daily -Patient had 5 days of antibiotic ceftriaxone and azithromycin -TRC and nebs, mucosol, inhaler Symbicort -Robitussin and Tessalon cap 100 mg twice a day as needed -Montelukast -Sputum culture pending receipt (she did report dry cough) -Blood culture negative -Urine Legionella and Streptococcus antigen negative -Dr. Guan consultation was obtained, thanks recommendation -Dr. Turner suggested Xopenex as an alternate to albuterol (approximately 3% less sinus tachycardia as a side effect), I contacted the pharmacy and they stopped carying this medication for the last 2 years #Multifocal atrial tachycardia -Continue Diltiazem 240 mg daily and 13 mg as needed -Continue Frusemide 20 mg daily -Cardiology consultation Dr. Turner was obtained, thanks recommendation -TSH 0.282 low normal, free T4 0.75 normal -Recommendations to transfer to telemetry if palpitation didn't improve despite clinical respiratory improvement -Echocardiogram 04/2016 Normal size left ventricle. Borderline to mild concentric left ventricular hypertrophy. No obvious regional wall motion abnormalities. Normal left ventricular ejection fraction visually estimated at 65%. Abnormal relaxation filling pattern of the left ventricle for age (stage 1 diastolic dysfunction). Normal right ventricular size and function. Normal atrial size. Trace mitral regurgitation. Mild tricuspid regurgitation. Mild pulmonary hypertension. Trace pulmonic regurgitation. #Steroid-induced hyperglycemia -Continue Accu-Chek before meals -Continue NovoLog sliding scale low-dose -Hemoglobin A1c 6.2 DVT prophylaxis Lovenox Code full Diet consistent carbohydrate to Consultation pulmonology, cardiology and PT with recommendation to discharge home #We had a discussion with case assembler Abril regarding the dispostion plan, she arranged home health survices 2-3 days per week. The patient is hoping to get 7 days of home survices but case assembler mentioned that it is impossible given her code status and she refused palative care before per Dr. Guan Problem List: 1. COPD EXACERBATION Pain Ratin Pain Location: None Pain Goal: Pain 4 or less Pain Plan: Mild pain pathway Tomorrow's Labs & Rationales: BMP to monitor HCO3, if continues to rise will plan for ABG
--- NOTE | 2016-05-30 11:35 | PN- Pulmonary ---
Subjective HPI/Critical Care Issues: pt seen and examined pt feeling better still with fatigue dyspnea returning to [facility], which is always present Objective Current Medications: Current Medications Sig/Bill Start time Last Medication Dose Route Stop Time Status Admin Acetaminophen 325 MG Q6 PRN 05/23 1400 AC 05/29 PO 0320 Albuterol Sulfate 3 ML EVERY 4 HRS/AWAKE 05/27 0800 AC 05/30 INH 1108 Benzonatate 100 MG BID PRN 05/23 2200 AC 05/28 PO 0848 Bisacodyl 5 MG DAILY PRN 05/23 1715 AC 05/26 PO 0651 Budesonide/ 2 PUF BID 05/23 2200 AC 05/29 Formoterol Fumarate INH 2125 [place] Butter/Shark 1 EYAL BID 05/24 1000 AC 05/29 Liver Oil TOP 2132 Diltiazem HCl 240 MG DAILY 05/24 1000 AC 05/30 PO 0921 Diltiazem HCl 30 MG DAILY PRN 05/23 1730 AC PO Docusate Sodium 100 MG BID 05/25 1000 AC 05/30 PO 0919 Enoxaparin Sodium 40 MG DAILY 05/23 1356 AC 05/23 SC 1428 Ergocalciferol 50,000 IU Q168H 05/25 1000 AC 05/25 PO 0931 Furosemide 20 MG DAILY PRN 05/23 1730 AC 05/26 PO 1011 Guaifenesin/ 10 ML Q6P PRN 05/28 0100 AC 05/29 Dextromethorphan PO 2256 Insulin Aspart 0 TIDAC 05/23 1915 AC 05/29 SC 1926 Ipratropium Le[place] 2.5 ML EVERY 4 HRS/AWAKE 05/27 0800 AC 05/30 INH 1109 Lorazepam 1 MG QPM 05/23 2200 AC 05/29 PO 2132 Lorazepam 0.5 MG BID PRN 05/23 2200 AC 05/27 PO 05/30 2159 2215 Meclizine HCl 12.5 MG TID PRN 05/28 1245 AC 05/29 PO 1034 Montelukast Sodium 10 MG AT BEDTIME 05/24 2200 AC 05/29 PO 2126 Morphine Sulfate 4 MG Q4P PRN 05/23 1400 AC IV Multivitamins 1 TAB DAILY 05/24 1000 AC 05/30 Therapeutic PO 0919 Omeprazole 20 MG DAILY PRN 05/23 1730 AC PO Oxycodone/ 1 TAB Q6 PRN 05/23 1400 AC Acetaminophen PO Polyethylene Glycol 17 GM DAILY 05/24 1000 AC 05/26 PO 0900 Polyethylene Glycol 17 GM DAILY PRN 05/23 1715 AC PO Prednisone 40 MG DAILY 05/30 1030 AC 05/30 PO 1129 Prednisone 50 MG DAILY 05/29 1000 DC 05/29 PO 1033 Senna/Docusate Sodium 1 TAB QPM 05/23 2200 AC 05/25 PO 2201 Sucralfate 1 GM DAILY 05/27 1033 AC 05/30 PO 0919 Vital Signs & I&O Last 24 Hrs of Vitals and I&O: Vital Signs Date Time Temp Pulse Resp B/P Pulse O2 O2 Flow FiO2 Ox Delivery Rate 05/30 0824 96 Nasal 2.5L Cannula 05/30 0657 97.4 80 22 130/70 97 Nasal 2.0L Cannula 05/29 2206 98.3 90 22 140/60 94 05/29 1703 93 Nasal 2.5L Cannula 05/29 1600 97 Nasal 2.5L Cannula 05/29 1411 99.0 100 20 130/70 92 Nasal 2.5L Cannula Intake & Output 05/30 1600 05/30 0800 05/30 0000 Intake Total 120 Output Total Balance 120 Intake, Oral 120 Exam Other Physical Findings: General - Alert, awake and oriented, mild distress HEENT - normocephalic, atraumatic Cardiovascular - S1, S2 Lungs - bilateral wheezing improved, prolonged end expiratory phase Abdomen - soft, bowel sounds positive, no tenderness Extremities - without edema or cyanosis Impression/Plan Impression/Plan Impression/Plan: Impression 76 year old woman known to me from the office and previous admissions. * Acute on chronic hypercarbic and-toxemic respiratory failure secondary to COPD exacerbation likely secondary to either bronchitis or right lower lobe community -acquired pneumonia * Diabetes/steroid-induced hyperglycemia Plan - TRC/nebs - taper prednisone 40mg starting today x 2 days, 30x2, 20x2, 10x2, keep on 5mg - case management for home care services - Monitor fingersticks closely given steroid induced hyperglycemia - spo2 goal >88% - continue Symbicort with rinsing of the mouth Patient remains full code at this point DVT prophylaxis at all times Physical therapy evaluation
[2016-05-30 14:15] VITALS: BP 130/80
--- NOTE | 2016-05-30 14:39 | RADIOLOGY REPORT ---
EXAMINATION: XR PORTABLE CHEST CLINICAL INFORMATION: Cough and fever, evaluate for pneumonia. COMPARISON: 05/28/2016 TECHNIQUE: Portable AP view of the chest was obtained. FINDINGS: There is volume loss on the left side with probable extensive emphysematous changes in the right upper lung rios right side greater than left. There are wedge resection changes peripherally in the mid portion of the upper lung on the right side. No consolidative infiltrate is identified. There is no significant appearing congestion. The cardiomediastinal silhouette is unchanged. There is osteopenia. IMPRESSION: 1. Probable COPD and postsurgical changes right lung. 2. No focal infiltrate to suggest pneumonia.
[2016-05-30 17:51] LABS: ABSOLUTE BASOPHIL COUNT 0 /CUMM (0.0-0.2); ABSOLUTE EOSINOPHIL COUNT 0.1 /CUMM (0.0-0.7); ABSOLUTE GRANULOCYTE CT 14.5 /CUMM (1.4-6.5); ABSOLUTE MONOCYTE COUNT 0.2 /CUMM (0.10-0.60); BASOPHIL % 0 % (0.0-2.0); EOSINOPHIL % 0.3 % (0-5); HEMATOCRIT 46.6 % (37-47); MEAN CORPUSCULAR HGB 26.4 PG (27.0-31.0); MEAN CORPUSCULAR HGB CONC 31.6 G/DL (33.0-37.0); MEAN CORPUSCULAR VOLUME 83.7 FL (81.0-99.0); MEAN PLATELET VOLUME 7.9 FL (7.4-10.4); PLATELET COUNT 364 /CUMM (130-400); RBC DISTRIBUTION WIDTH 14.7 % (11.5-14.5); RED BLOOD CELL CT 5.57 /CUMM (4.20-5.40); WHITE BLOOD CELL COUNT 15.7 /CUMM (4.8-10.8)
[2016-05-30 17:55] LABS: GRANULOCYTE % 92.2 % (42.2-75.2)
[2016-05-30 22:24] VITALS: BP 130/60
[2016-05-31 07:24] VITALS: BP 124/60
[2016-05-31] MEDS ORDERED: MILLIPRED5 M1 PO (08:57)
--- NOTE | 2016-05-31 11:44 | PN- Housestaff ---
SOFIYA HOWARD,[facility] 05/31/16 1144: Subjective Follow-up For: COPD exacerbation Subjective: Patient was seen and examined this morning, vital signs are stable, remained afebrile, MAXIMUM TEMPERATURE overnight 98.9. Patient reported dry cough, can't bring anything up. She was able to shower this morning without significant shortness of breath and she seemed very happy regarding that. Had a bowel movement this morning. Patient wants to ambulate outside her room, will ask the nurse to ambulate her around and to measure her oxygen saturation. Review of Systems Constitutional: Reports: see HPI. Objective Last 24 Hrs of Vital Signs/I&O Vital Signs Date Time Temp Pulse Resp B/P Pulse O2 O2 Flow FiO2 Ox Delivery Rate 05/31 0811 93 Nasal 2.5L Cannula 05/31 0800 Nasal 2.5L Cannula 05/31 0724 97.9 91 23 124/60 92 Nasal 2.5L Cannula 05/31 0000 Nasal 2.5L Cannula 05/30 2224 98.6 93 24 130/60 93 Nasal 2.5L Cannula 05/30 1625 92 Nasal 2.5L Cannula 05/30 1600 Nasal 2.5L Cannula 05/30 1531 98.9 05/30 1415 100.5 95 20 130/80 92 Nasal 2.5L Cannula Intake & Output 05/31 1600 05/31 0800 05/31 0000 Intake Total 200 240 Output Total Balance 200 240 Intake, IV 0 Intake, Oral 200 240 Number 0 0 Bowel Movements Physical Exam General Appearance: Alert, Oriented X3, Cooperative, No Acute Distress Skin: No Rashes, No Breakdown, No Significant Lesion HEENT: Atraumatic, PERRLA, EOMI, Mucous Membr. moist/pink Neck: Supple, No JVD Cardiovascular: Regular Rate, Normal S1, Normal S2, No Murmurs Lungs: Clear to Auscultation, bilateral decreased air entry, no wheeze status post nebulizer treatment Abdomen: Normal Bowel Sounds, Soft, No Tenderness Neurological: Normal Gait, Normal Speech, Strength at 5/5 X4 Ext, Normal Tone, Sensation Intact, Cranial Nerves 3-12 NL, Reflexes 2+ Extremities: No Clubbing, No Cyanosis, No Edema, Normal Pulses Assessment/Plan Assessment: Mr. Chase is a 76 year old female with past medical history of pulmonary hypertension, chronic COPD on home oxygen of 2.5L, chronic steroids 2.5mg daily , multifocal atrial tachycardia on diltiazem presented to ED with chief complaint of shortness of breath. Chest x-ray showed IMPRESSION: Small right pleural effusion. Hazy right mid to lower lung opacity could represent atelectasis or pneumonia. Problem list #COPD exacerbation #Community-acquired pneumonia #Acute hypoxic hypercapnic respiratory failure #Multifocal atrial tachycardia #COPD exacerbation #Community-acquired pneumonia #Acute hypoxic hypercapnic respiratory failure -Improved, patient is back to baseline (end-stage COPD) oxygen supplementation 2.5 with saturation 90% -Prednisone 40 mg daily (Sucralfate half hour prior to predinsone adminstration for heartburn)x2, 30x2, 20x2, 10x2 and continue on 5 mg daily -Pulse oximetry on ambulation desat to 83 with oxygen, upon resting went up to 92% -Patient had 5 days of antibiotic ceftriaxone and azithromycin -TRC and nebs, mucosol, inhaler Symbicort -Robitussin and Tessalon cap 100 mg twice a day as needed -Montelukast -Sputum culture pending receipt (she did report dry cough) -Blood culture negative -Urine Legionella and Streptococcus antigen negative -Dr. Guan consultation was obtained, thanks recommendation -Dr. Turner suggested Xopenex as an alternate to albuterol (approximately 3% less sinus tachycardia as a side effect), I contacted the pharmacy and they stopped carying this medication for the last 2 years #Multifocal atrial tachycardia -Continue Diltiazem 240 mg daily and 13 mg as needed -Continue Frusemide 20 mg daily -Cardiology consultation Dr. Turner was obtained, thanks recommendation -TSH 0.282 low normal, free T4 0.75 normal -Recommendations to transfer to telemetry if palpitation didn't improve despite clinical respiratory improvement -Echocardiogram 04/2016 Normal size left ventricle. Borderline to mild concentric left ventricular hypertrophy. No obvious regional wall motion abnormalities. Normal left ventricular ejection fraction visually estimated at 65%. Abnormal relaxation filling pattern of the left ventricle for age (stage 1 diastolic dysfunction). Normal right ventricular size and function. Normal atrial size. Trace mitral regurgitation. Mild tricuspid regurgitation. Mild pulmonary hypertension. Trace pulmonic regurgitation. #Steroid-induced hyperglycemia -Continue Accu-Chek before meals -Continue NovoLog sliding scale low-dose -Hemoglobin A1c 6.2 DVT prophylaxis Lovenox Code full Diet consistent carbohydrate to Consultation pulmonology, cardiology and PT with recommendation to discharge home #Patient is for discharge tomorrow, case management Evelia was contacted today and she has home sevices ready Problem List: 1. COPD EXACERBATION Pain Ratin Pain Location: None Pain Goal: Pain 4 or less Pain Plan: Mild pain pathway Tomorrow's Labs & Rationales: None YOVANI HOWARD,[facility] 05/31/16 1359: Attending MD Review Statement Attending Statement Attending MD Statement: examined this patient, discuss w/resident/PA/APPLICATION SUPPORT, agreed w/resident/PA/APPLICATION SUPPORT, reviewed EMR data (avail), discussed with nursing, discussed with case mgmt, amended to note Attending Assessment/Plan: Patient seen and examined. Resting comfortably and not in any acute distress. No issues overnight. She reports feeling better this morning. She reports been able to wash up in the bathroom today without excessive shortness of breath. She is eager to try to ambulate around the unit today. She does state that at baseline she is only able to ambulate to the bathroom before becoming short of breath. On examination she has reduced wheezing bilaterally with fair air entry. She is on her baseline oxygen requirements. Case was discussed in detail with her telephone technician Freeman Guan MD. Recommendations are to maintain patient is a full code according to her wishes. His recommendation is that patient may be discharged later on today if she is able to tolerate ambulating around the unit. Yesterday afternoon she was reported to have a 100.5. She has been afebrile since. However count is elevated however she is on steroid therapy. Sputum culture showed mixed garrison. Blood cultures are still pending. Recommendations -Continue prednisone taper as patient continues to report mild agitation and tremors when she is on steroid therapy. -Continue her bronchodilator regimen. -Continue to monitor patient off on antibiotic therapy. -Ambulate patient around the nursing unit today. -Follow-up with case management regarding safe discharge planning. She Will be discharged home once additional arrangements can be made for home care services.
--- NOTE | 2016-05-31 12:37 | PN- Pulmonary ---
Subjective HPI/Critical Care Issues: pt seen and examined doing better feels more comfortable has yet to walk around the aguirre no n/v/d/c, no cp Objective Current Medications: Current Medications Sig/Bill Start time Last Medication Dose Route Stop Time Status Admin Acetaminophen 650 MG .STK-MED ONE 05/31 0114 DC PO 05/31 0115 Acetaminophen 325 MG Q6 PRN 05/23 1400 AC 05/31 PO 0119 Albuterol Sulfate 3 ML EVERY 4 HRS/AWAKE 05/27 0800 AC 05/31 INH 0806 Benzonatate 100 MG BID PRN 05/23 2200 AC 05/28 PO 0848 Bisacodyl 5 MG DAILY PRN 05/23 1715 AC 05/26 PO 0651 Budesonide/ 2 PUF BID 05/23 2200 AC 05/31 Formoterol Fumarate INH 0901 [place] Butter/Shark 1 EYAL BID 05/24 1000 AC 05/31 Liver Oil TOP 0901 Diltiazem HCl 240 MG DAILY 05/24 1000 AC 05/31 PO 0901 Diltiazem HCl 30 MG DAILY PRN 05/23 1730 AC PO Docusate Sodium 100 MG BID 05/25 1000 AC 05/31 PO 0901 Enoxaparin Sodium 40 MG DAILY 05/23 1356 AC 05/23 SC 1428 Ergocalciferol 50,000 IU Q168H 05/25 1000 AC 05/25 PO 0931 Furosemide 20 MG DAILY PRN 05/23 1730 AC 05/26 PO 1011 Guaifenesin/ 10 ML Q6P PRN 05/28 0100 AC 05/31 Dextromethorphan PO 0657 Insulin Aspart 0 TIDAC 05/23 1915 AC 05/30 SC 1851 Ipratropium [place] 2.5 ML EVERY 4 HRS/AWAKE 05/27 0800 AC 05/31 INH 0806 Lorazepam 1 MG QPM 05/23 2200 AC 05/30 PO 2123 Lorazepam 0.5 MG BID PRN 05/23 2200 DC 05/27 PO 05/30 2159 2215 Meclizine HCl 12.5 MG TID PRN 05/28 1245 AC 05/29 PO 1034 Montelukast Sodium 10 MG AT BEDTIME 05/24 2200 AC 05/30 PO 2123 Morphine Sulfate 4 MG Q4P PRN 05/23 1400 DC IV Multivitamins 1 TAB DAILY 05/24 1000 AC 05/31 Therapeutic PO 0901 Omeprazole 20 MG DAILY PRN 05/23 1730 AC PO Oxycodone/ 1 TAB Q6 PRN 05/23 1400 DC Acetaminophen PO Patient Medication 1 ED .STK-MED ONE 05/30 1344 DC Teaching ED 05/30 1345 Polyethylene Glycol 17 GM DAILY 05/24 1000 AC 05/26 PO 0900 Polyethylene Glycol 17 GM DAILY PRN 05/23 1715 AC PO Prednisone 30 MG DAILY 06/01 1000 AC PO 06/02 2300 Prednisone 40 MG DAILY 05/30 1030 AC 05/31 PO 05/31 2300 0952 Senna/Docusate Sodium 1 TAB QPM 05/23 2200 AC 05/25 PO 2201 Sucralfate 1 GM DAILY 05/27 1033 AC 05/31 PO 0902 Vital Signs & I&O Last 24 Hrs of Vitals and I&O: Vital Signs Date Time Temp Pulse Resp B/P Pulse O2 O2 Flow FiO2 Ox Delivery Rate 05/31 0811 93 Nasal 2.5L Cannula 05/31 0800 Nasal 2.5L Cannula 05/31 0724 97.9 91 23 124/60 92 Nasal 2.5L Cannula 05/31 0000 Nasal 2.5L Cannula 05/30 2224 98.6 93 24 130/60 93 Nasal 2.5L Cannula 05/30 1625 92 Nasal 2.5L Cannula 05/30 1600 Nasal 2.5L Cannula 05/30 1531 98.9 05/30 1415 100.5 95 20 130/80 92 Nasal 2.5L Cannula Intake & Output 05/31 1600 05/31 0800 05/31 0000 Intake Total 200 240 Output Total Balance 200 240 Intake, IV 0 Intake, Oral 200 240 Number 0 0 Bowel Movements Exam Other Physical Findings: General - Alert, awake and oriented, mild distress HEENT - normocephalic, atraumatic Cardiovascular - S1, S2 Lungs - bilateral wheezing improved, prolonged end expiratory phase Abdomen - soft, bowel sounds positive, no tenderness Extremities - without edema or cyanosis Results Last 24 Hrs of Lab Results: Laboratory Tests 05/30/16 1515: Urine Color STRAW, Urine Clarity CLEAR, Urine pH 6.0, Ur Specific [place] 1.010, Urine Protein NEG, Urine Ketones TRACE H, Urine Nitrite NEG, Urine Bilirubin NEG, Urine Urobilinogen 0.2, Ur Leukocyte Esterase NEG, Ur Microscopic EXAM NOT REQUIRED, Urine Hemoglobin NEG, Urine Glucose >=1000 H 05/30/16 1440: Anion Gap 8, Estimated GFR > 60, BUN/Creatinine Ratio 30.0 H, CBC w Diff NO MAN DIFF REQ, RBC 5.57 H, MCV 83.7, MCH 26.4 L, RDW 14.7 H, MPV 7.9, Gran % 92.2 H, Lymphocytes % 6.3 L, Monocytes % 1.2 L, Eosinophils % 0.3, Basophils % 0 L , Absolute Granulocytes 14.5 H, Absolute Lymphocytes 1.0 L, Absolute Monocytes 0.2, Absolute Eosinophils 0.1, Absolute Basophils 0, PUBS MCHC 31.6 L Impression/Plan Impression/Plan Impression/Plan: Impression 76 year old woman known to me from the office and previous admissions. * Acute on chronic hypercarbic and-toxemic respiratory failure secondary to COPD exacerbation likely secondary to either bronchitis or right lower lobe community -acquired pneumonia * Diabetes/steroid-induced hyperglycemia Plan - TRC/nebs - taper prednisone 40mg today then, 30x2, 20x2, 10x2, keep on 5mg - case management for home care services - Monitor fingersticks closely given steroid induced hyperglycemia - spo2 goal >88% - continue Symbicort with rinsing of the mouth Patient remains full code at this point DVT prophylaxis at all times DC planning
[2016-05-31 14:36] VITALS: BP 120/70
[2016-05-31 22:17] VITALS: BP 130/60
[2016-06-01 07:16] VITALS: BP 130/70
--- NOTE | 2016-06-01 07:18 | PN- Housestaff ---
SOFIYA HOWARD,[facility] 06/01/16 0718: Subjective Follow-up For: COPD exacerbation Subjective: Patient was seen and examined this morning, vital signs are stable, no overnight events reported by the nurse of the patient. Patient is for discharge today, offered no new complaints. Wants to speak with ed case manager regarding home service agency. Review of Systems Constitutional: Reports: see HPI. Objective Last 24 Hrs of Vital Signs/I&O Vital Signs Date Time Temp Pulse Resp B/P Pulse O2 O2 Flow FiO2 Ox Delivery Rate 06/01 0800 Nasal 2.5L Cannula 06/01 0750 94 Nasal 2.5L Cannula 06/01 0716 98.1 79 20 130/70 93 Room Air 06/01 0000 Nasal 2.5L Cannula 05/31 2217 98.1 100 20 130/60 92 Intake & Output 06/01 1600 06/01 0800 06/01 0000 Intake Total 600 100 100 Output Total Balance 600 100 100 Intake, Oral 600 100 100 Physical Exam General Appearance: Alert, Oriented X3, Cooperative, No Acute Distress Skin: No Rashes, No Breakdown, No Significant Lesion HEENT: Atraumatic, PERRLA, EOMI, Mucous Membr. moist/pink Neck: Supple Cardiovascular: Regular Rate, Normal S1, Normal S2, No Murmurs Lungs: Clear to Auscultation, bilateral decreased air entry Abdomen: Normal Bowel Sounds, Soft, No Tenderness Neurological: Normal Gait, Normal Speech, Strength at 5/5 X4 Ext, Normal Tone, Sensation Intact, Cranial Nerves 3-12 NL, Reflexes 2+ Extremities: No Clubbing, No Cyanosis, No Edema, Normal Pulses Assessment/Plan Assessment: Mr. Chase is a 76 year old female with past medical history of pulmonary hypertension, chronic COPD on home oxygen of 2.5L, chronic steroids 2.5mg daily , multifocal atrial tachycardia on diltiazem presented to ED with chief complaint of shortness of breath. Chest x-ray showed IMPRESSION: Small right pleural effusion. Hazy right mid to lower lung opacity could represent atelectasis or pneumonia. Problem list #COPD exacerbation #Community-acquired pneumonia #Acute hypoxic hypercapnic respiratory failure #Multifocal atrial tachycardia #COPD exacerbation #Community-acquired pneumonia #Acute hypoxic hypercapnic respiratory failure -Improved, patient is back to baseline (end-stage COPD) oxygen supplementation 2.5 with saturation 90% -Prednisone 30 mg daily (Sucralfate half hour prior to predinsone adminstration for heartburn) 20x2, 10x2 and continue on 5 mg daily -Pulse oximetry on ambulation desat to 83 with oxygen, upon resting went up to 92% -Patient had 5 days of antibiotic ceftriaxone and azithromycin -TRC and nebs, mucosol, inhaler Symbicort -Robitussin and Tessalon cap 100 mg twice a day as needed -Montelukast -Sputum culture pending receipt (she did report dry cough) -Blood culture negative -Urine Legionella and Streptococcus antigen negative -Dr. Guan consultation was obtained, thanks recommendation -Dr. Turner suggested Xopenex as an alternate to albuterol (approximately 3% less sinus tachycardia as a side effect), I contacted the pharmacy and they stopped carying this medication for the last 2 years #Multifocal atrial tachycardia -Continue Diltiazem 240 mg daily and 13 mg as needed -Continue Frusemide 20 mg daily -Cardiology consultation Dr. Turner was obtained, thanks recommendation -TSH 0.282 low normal, free T4 0.75 normal -Recommendations to transfer to telemetry if palpitation didn't improve despite clinical respiratory improvement -Echocardiogram 04/2016 Normal size left ventricle. Borderline to mild concentric left ventricular hypertrophy. No obvious regional wall motion abnormalities. Normal left ventricular ejection fraction visually estimated at 65%. Abnormal relaxation filling pattern of the left ventricle for age (stage 1 diastolic dysfunction). Normal right ventricular size and function. Normal atrial size. Trace mitral regurgitation. Mild tricuspid regurgitation. Mild pulmonary hypertension. Trace pulmonic regurgitation. #Steroid-induced hyperglycemia -Continue Accu-Chek before meals -Continue NovoLog sliding scale low-dose -Hemoglobin A1c 6.2 DVT prophylaxis Lovenox Code full Diet consistent carbohydrate to Consultation pulmonology, cardiology and PT with recommendation to discharge home #Patient is for discharge today with home services Problem List: 1. COPD EXACERBATION Pain Ratin Pain Location: None Pain Goal: Pain 4 or less Pain Plan: Mild pain pathway Tomorrow's Labs & Rationales: None AIDEE PINA MD 06/01/16 1143: Attending Review Statement Attending Statement Attending MD Statement: examined this patient, discuss w/resident/PA/SITE PLANNER, agreed w/resident/PA/SITE PLANNER, reviewed EMR data (avail), discussed with nursing, discussed with case mgmt, amended to note Attending Assessment/Plan: Patient seen and examined. No events overnight reported by nursing staff. She is alert and oriented 3 this morning. She denies any shortness of breath at rest. She admits to dyspnea with exertion but states that she is at her baseline now. On examination she has mild expiratory wheezing diffusely. She remains afebrile and blood cultures have returned negative. Case was discussed with her photographer helper Freeman Guan MD today. He states that today she is cleared to be discharged home. Patient was reluctant to be discharged from yesterday until cleared by her photographer helper. She will follow- up with him as an outpatient. Patient has stated that if she is unable to make it to the clinic for evaluation she will follow-up with him via telephone. She has been advised to return to the emergency room should she develop worsening respiratory symptoms.
--- NOTE | 2016-06-01 10:33 | PN- Pulmonary ---
Subjective HPI/Critical Care Issues: pt seen and examined feeling better weakness improving cough is dry no cp, n/v/d/c Objective Current Medications: Current Medications Sig/Bill Start time Last Medication Dose Route Stop Time Status Admin Acetaminophen 325 MG Q6 PRN 05/23 1400 AC 06/01 PO 0219 Albuterol Sulfate 3 ML EVERY 4 HRS/AWAKE 05/27 0800 AC 06/01 INH 0735 Benzonatate 100 MG BID PRN 05/23 2200 AC 05/28 PO 0848 Bisacodyl 5 MG DAILY PRN 05/23 1715 AC 05/26 PO 0651 Budesonide/ 2 PUF BID 05/23 2200 AC 06/01 Formoterol Fumarate INH 1005 [place] Butter/Shark 1 EYAL BID 05/24 1000 AC 05/31 Liver Oil TOP 2144 Diltiazem HCl 240 MG DAILY 05/24 1000 AC 06/01 PO 1008 Diltiazem HCl 30 MG DAILY PRN 05/23 1730 AC 06/01 PO 1003 Docusate Sodium 100 MG BID 05/25 1000 AC 06/01 PO 1008 Enoxaparin Sodium 40 MG DAILY 05/23 1356 AC 05/23 SC 1428 Ergocalciferol 50,000 IU Q168H 05/25 1000 AC 06/01 PO 1000 Furosemide 20 MG DAILY PRN 05/23 1730 AC 05/26 PO 1011 Guaifenesin/ 10 ML Q6P PRN 05/28 0100 AC 05/31 Dextromethorphan PO 0657 Insulin Aspart 0 TIDAC 05/23 1915 AC 05/30 SC 1851 Ipratropium [place] 2.5 ML EVERY 4 HRS/AWAKE 05/27 0800 AC 06/01 INH 0734 Lorazepam 1 MG QPM 05/23 2200 AC 05/31 PO 2228 Meclizine HCl 12.5 MG TID PRN 05/28 1245 AC 06/01 PO 0921 Montelukast Sodium 10 MG AT BEDTIME 05/24 2200 AC 05/31 PO 2143 Multivitamins 1 TAB DAILY 05/24 1000 AC 06/01 Therapeutic PO 1000 Omeprazole 20 MG DAILY PRN 05/23 1730 AC PO Polyethylene Glycol 17 GM DAILY 05/24 1000 AC 05/31 PO 1523 Polyethylene Glycol 17 GM DAILY PRN 05/23 1715 AC PO Prednisone 30 MG DAILY 06/01 1000 AC 06/01 PO 06/02 2300 1004 Prednisone 40 MG DAILY 05/30 1030 DC 05/31 PO 05/31 2300 0952 Senna/Docusate Sodium 1 TAB QPM 05/23 2200 AC 05/25 PO 220 Sucralfate 1 GM DAILY 05/27 1033 AC 06/01 PO 0921 Vital Signs & I&O Last 24 Hrs of Vitals and I&O: Vital Signs Date Time Temp Pulse Resp B/P Pulse O2 O2 Flow FiO2 Ox Delivery Rate 06/01 1003 100 130/70 06/01 0750 94 Nasal 2.5L Cannula 06/01 0716 98.1 79 20 130/70 93 Room Air 06/01 0000 Nasal 2.5L Cannula 05/31 2217 98.1 100 20 130/60 92 05/31 1650 Nasal 2.5L Cannula 05/31 1436 98.1 87 24 120/70 97 Intake & Output 06/01 1600 06/01 0800 04 0000 Intake Total 100 100 Output Total Balance 100 100 Intake, Oral 100 100 Exam Other Physical Findings: General - Alert, awake and oriented, mild distress HEENT - normocephalic, atraumatic Cardiovascular - S1, S2 Lungs - bilateral wheezing improved, prolonged end expiratory phase Abdomen - soft, bowel sounds positive, no tenderness Extremities - without edema or cyanosis Impression/Plan Impression/Plan Impression/Plan: Impression 76 year old woman known to me from the office and previous admissions. * Acute on chronic hypercarbic and-toxemic respiratory failure secondary to COPD exacerbation likely secondary to either bronchitis or right lower lobe community -acquired pneumonia * Diabetes/steroid-induced hyperglycemia Plan - TRC/nebs - taper prednisone as ordered - case management for home care services - Monitor fingersticks closely given steroid induced hyperglycemia - spo2 goal >88% - continue Symbicort with rinsing of the mouth Patient remains full code at this point DVT prophylaxis at all times DC planning
[2016-06-01] MEDS ORDERED: SUCRALFATE1 GM/10 M1 PO (12:16)
[2016-06-01] MEDS ORDERED: GUAIFENESI100 MG/5 M PO (12:16)
[2016-06-01] MEDS ORDERED: PREDNISONE10 M2 PO ×2 (15:41→15:43)
== END 2016-06-01 15:45 | disposition home health service (06) | DRG 190 ==
LOC: ENRESERVTM → ENRESERVDT → ERH 10:51 → 2NA 13:23 → ERHI 13:23 → ENPENDDIS 13:23 → 2NA 16:36
PROVIDERS: Physician Assistant Medical; Student in an Organized Health Care Education/Training Program; ADMIT Internal Medicine
DX: J44.0 Chronic obstructive pulmonary disease with (acute) lower respiratory infection (principal); J18.9 Pneumonia, unspecified organism; J96.21 Acute and chronic respiratory failure with hypoxia; J96.22 Acute and chronic respiratory failure with hypercapnia; I27.2 Other secondary pulmonary hypertension; Z99.81 Dependence on supplemental oxygen; I50.32 Chronic diastolic (congestive) heart failure; E11.9 Type 2 diabetes mellitus without complications; J44.1 Chronic obstructive pulmonary disease with (acute) exacerbation; K59.00 Constipation, unspecified; E78.5 Hyperlipidemia, unspecified; G47.33 Obstructive sleep apnea (adult) (pediatric); M81.0 Age-related osteoporosis without current pathological fracture; R00.0 Tachycardia, unspecified; Z79.84 Long term (current) use of oral hypoglycemic drugs; Z87.891 Personal history of nicotine dependence
CPT/HCPCS: 2NAP; 36415; 81001; 81003; 82436; 87040; 87070; 87086; 87449; 87450; 87804; 87804-59; 93005; 93010; 93306; 96374; 96375; 99291; J0456; J0696; J1200; J1650; J2405; J2920; J3490; J7040; J7512; J7608

== ENCOUNTER 2016-07-20 11:47 | Inpatient (IN) | payer OTHER ==
[~2016-07-20] VITALS: Ht 152.4 cm; Wt 59.9 kg
[~2016-07-20 11:47] MED LIST changes: +AZITHROMYCIN250 M1 PO; +DILTIAZEM HCL30 M1 PO; +FUROSEMIDE20 M1 PO; +GUAIFENESI100 MG/5 M PO; +IPRAT-ALBUT 0.5-3 ML PO; +MILLIPRED5 M1 PO; +MIRALAX17 G1 PO; +OMEPRAZOLE20 M2 PO; +PREDNISONE10 M2 PO; +SINGULAIR10 M1 PO; +SUCRALFATE1 GM/10 M1 PO; +VITAMIN D250000 UNIT PO
--- NOTE | 2016-07-20 12:14 | ED GENERAL ADULT ---
History of Present Illness General Chief Complaint: Abdominal Pain/Flank Pain Stated Complaint: ABDOMINAL PAIN/DYSPNEA Source: patient, family, old records Exam Limitations: no limitations Allergies Coded Allergies: Iodinated Contrast Media - Oral and (IODINATED CONTRAST MEDIA - IV DYE) ( Intermediate, HIVES, RASH 04/27/15) Penicillins (Intermediate, HIVES 04/27/15) Sulfa (Sulfonamide Antibiotics) (Intermediate, HIVES 04/27/15) methylprednisolone (Mild, "TOO MANY SIDE EFFECTS, HIGH SUGAR, LOOSE TEETH, NECK BONES" 04/27/15) Reconcile Medications Benzonatate 100 MG CAPSULE 1 CAP PO BIDP PRN COUGH (Reported) Budesonide/Formoterol Fumarate (Symbicort 160-4.5 Mcg Inhaler) 160 MCG-4.5 MCG/ ACTUATION HFA.AER.AD 2 PUF INH BID COPD (Reported) Diltiazem HCl (Cardizem Cd) 240 MG CAP.ER.24H 1 CAP PO DAILY HEART (Reported) Diltiazem HCl 30 MG TABLET 1 TAB PO DAILY PRN HEART (Reported) Docusate Sodium (Colace) 100 MG CAPSULE 1 CAP PO QPM CONSTIPATION (Reported) Ergocalciferol (Vitamin D2) (Vitamin D2) 50,000 UNIT CAPSULE 1 CAP PO QW SUPPLEMENT (Reported) Furosemide 20 MG TABLET 1 TAB PO DAILY PRN WATER PILL (Reported) Ipratropium/Albuterol Sulfate (Iprat-Albut 0.5-3(2.5) MG/3 Ml) 0.5 MG-3 MG (2.5 MG BASE)/3 ML AMPUL.NEB 1 INH PO 4 TIMES/DAY BREATHING PROBLEMS (Reported) Lorazepam 1 MG TABLET 1 TAB PO QPM SLEEP (Reported) Lorazepam (Ativan) 0.5 MG TABLET 1 TAB PO BIDP PRN ANXIETY (Reported) Meclizine HCl 12.5 MG TABLET 1 TAB PO BID DIZZINESS (Reported) Multivitamin (One Daily Multivitamin) 1 EACH TABLET 1 TAB PO DAILY SUPPLEMENT (Reported) Omeprazole 20 MG CAPSULE.DR 1 CAP PO DAILY PRN ACID (Reported) Polyethylene Glycol 3350 (Miralax) 17 GRAM POWD.PACK 1 PAC PO DAILY PRN CONSTIPATION (Reported) dissolve in water Prednisone 2.5 MG TABLET 1 TAB PO DAILY COPD (Reported) Sennosides/Docusate Sodium (Senna-Docusate Sodium Tablet) 8.6 MG-50 MG TABLET 1 TAB PO QPM CONSTIPATION (Reported) Sucralfate 1 GRAM/10 ML ORAL.SUSP 1 GM PO DAILY GIVE 1/2 HOUR PRIOR TO PREDINSONE DOSE HPI: Ms Chase is a 76 year old female with past medical history of pulmonary hypertension, chronic COPD on home oxygen of 2.5L, chronic steroids 2.5mg daily, multifocal atrial tachycardia on diltiazem percent to to the emergency department on 07/20/2016 complaining of a left lower quadrant thumping in her abdomen which has subsequently affected her breathing. Patient states that her symptoms started approximately 4 days ago, this had subsequently got worse. This morning prior to coming into the emergency department she called her transportation officer Dr. Turner who recommended that she should come into the emergency to ensure that she had not developed any worsening dilatation to the aorta. She was brought in by her friend Tiffanie was present at the time of her clinical encounter. During the clinical encounter the patient continues to be extremity short of breath. Denies the presence of any pain though states that her thumping occasionally radiates to her left flank. She denies any fever, chills, nausea, vomiting. Patient was last discharged from [facility] 05/27/2016, where she had been admitted for COPD exacerbation secondary to community-acquired pneumonia. (NORMA HOWARD,OLLIE) Vital Signs & Intake/Output Vital Signs & Intake/Output Vital Signs Date Time Temp Pulse Resp B/P B/P Pulse O2 O2 Flow FiO2 Mean Ox Delivery Rate 07/22 0849 94 Nasal 2.5L Cannula 07/22 0826 94 Nasal 2.5L Cannula 07/22 0825 98.1 82 18 122/68 96 Nasal 2.0L Cannula 07/22 0001 98.0 83 18 108/64 96 Nasal Cannula 07/22 0000 Nasal 2.5L Cannula ED Intake and Output 07/22 0000 07/21 1200 Intake Total 970 565 Output Total 600 200 Balance 370 365 Intake, IV 250 325 Intake, Oral 720 240 Number 0 0 Bowel Movements Output, Urine 600 200 Triage Nurses Notes Reviewed? yes (NEHAL HOWARD,KRISTINE) Past History Medical History Any Pertinent Medical History? see below for history Neurological: dizziness EENT: NONE Cardiovascular: diastolic CHF, hyperlipidemia, ATRIAL TACYCARDIA Respiratory: COPD, obstructive sleep apnea, USES NASAL O2 AT 2.5 L Gastrointestinal: NONE Hepatic: NONE Renal: NONE Musculoskeletal: osteoporosis Psychiatric: NONE Endocrine: NONE Blood Disorders: NONE Cancer(s): NONE FILM HISTORIAN/Reproductive: NONE History of MRSA: No History of VRE: No History of CDIFF: No Influenza Vaccine: 11/27/14 Surgical History Surgical History: RLL PARTIAL LOBECTOMY R/T GRANULOMAS Psychosocial History Who do you live with Patient/Self Services at Home Oxygen What is your primary language Slovenian Family History Family History, If Any: FATHER FH myocardial infarction male first degree age known MOTHER FH: diabetes mellitus (OLLIE GREEN MD) Family History Hx Contributory? No (KRISTINE CALVERT MD) Review of Systems Review of Systems Constitutional: Reports: weakness. Denies: chills, diaphoresis, fever, malaise. Cardiovascular: Denies: chest pain, edema, orthopena, palpitations, peripheral edema. GI: Denies: abdominal pain, bloating, diarrhea, distention, bowel incontinence, melena, nausea. Genitourinary: Denies: discharge, dysuria, frequency, hematuria. Musculoskeletal: Denies: back pain, gout, joint pain, joint swelling. Skin: Denies: change in skin color, change in hair/nails, dryness, erythema, jaundice. Neurological/Psychological: Denies: anxiety, ataxia, cognitive dysfunction, confusion, depressed, dementia. Hematologic/Endocrine: Denies: bruising, bleeding, polyuria, polydipsia. (OLLIE GREEN MD) Review of Systems EENTM: Reports: no symptoms. Respiratory: Reports: see HPI, cough, short of breath. Immunologic/Allergic: Reports: no symptoms. All Other Systems: Reviewed and Negative (KRISTINE CALVERT MD) Physical Exam Physical Exam General Appearance: alert, anxious, moderate distress Head: atraumatic Eyes: Bilateral: PERRL, EOMI. Ears, Nose, Throat: normal pharynx Respiratory: accessory muscle use, wheezing, respiratory distress Cardiovascular: regular rate/rhythm Gastrointestinal: normal bowel sounds, soft, non-tender Back: normal inspection Extremities: normal inspection (OLLIE GREEN MD) Physical Exam Neck: normal inspection, supple, full range of motion Peripheral Pulses: 4+ carotid (R), 4+ carotid (L) Neurologic/Psych: no motor/sensory deficits, awake, alert, oriented x 3 Reflexes: 2+: bicep (R), bicep (L). Skin: intact, warm/dry Lymphatic: no anterior cervical suman Core Measures ACS in differential dx? Yes ASA ordered for poss ACS? No-ACS ruled out CVA/TIA Diagnosis: No Severe Sepsis Present: No Septic Shock Present: No (NEHAL HOWARD,KRISTINE) Progress Differential Diagnoses I considered the following diagnoses in my evaluation of the patient: COPD exacerbation, CHF exacerbation, pneumonia, (NORMA HOWARD,OLLIE) Differential Diagnoses I considered the following diagnoses in my evaluation of the patient: Plan of Care: Orders Procedure Date/time Status AEROSOL CHG 07/21 UNK Complete OXYGEN 07/21 UNK Complete OXYGEN DAILY CHARGE 07/21 UNK Complete Current Medications Sig/Bill Start time Last Medication Dose Stop Time Status Admin Docusate Sodium 100 MG BID 07/21 2199 AC 07/22 (Colace) 1013 Magnesium Hydroxide 30 ML ONE PRN 07/21 2030 AC 07/21 (Milk Of Magnesia) 2142 Diltiazem HCl 240 MG DAILY 07/21 1000 AC 07/22 (Cardizem CD) 1013 Enoxaparin Sodium 40 MG DAILY 07/21 1000 AC (Lovenox) Sucralfate 1 GM DAILY 07/21 1000 AC 07/22 (Carafate Suspension) 1011 Albuterol Sulfate 3 ML EVERY 4 HRS/AWAKE 07/21 08 AC 07/22 (Proventil) 1615 Insulin Aspart 0 TIDAC 07/21 0800 AC 07/22 (NovoLOG) 1230 Ipratropium [place] 2.5 ML EVERY 4 HRS/AWAKE 07/21 0800 AC 07/22 (Atrovent) 1614 Senna 187 MG AT BEDTIME 07/21 0130 AC (Senokot) Azithromycin 500 MG AT BEDTIME 07/20 2330 AC 07/21 (Zithromax) 07/24 225 2141 Sodium Chloride 250 ML (Normal Saline 0.9%) Guaifenesin 10 ML Q6P PRN 07/20 233 AC 07/21 (Robitussin) 1221 Budesonide/ 2 PUF BID 07/20 2200 AC 07/22 Formoterol Fumarate 1016 (Symbicort) Lorazepam 1 MG QPM 07/20 2200 AC 07/21 (Ativan) 2142 Meclizine HCl 12.5 MG BID 07/20 2200 AC 07/22 (Antivert) 1013 Acetaminophen 650 MG Q8P PRN 07/20 1829 AC (Tylenol) Acetaminophen/ 1 TAB Q8P PRN 07/20 1829 AC Hydrocodone Bitart (Vicodin) Benzonatate 100 MG BID 07/20 1829 AC 07/22 (Tessalon Capsule) 1012 Morphine Sulfate 2 MG Q8P PRN 07/20 1829 AC (Morphine) Omeprazole 20 MG DAILY PRN 07/20 1829 AC (Prilosec) Diagnostic Imaging: Viewed by Me: Radiology Read, Ultrasound. Discussed w/RAD: CT Scan, Ultrasound. Radiology Impression: Limited evaluation of the aorta due to body habitus. Mild ectasia is seen on prior CT at the mid abdominal aorta, which is likely similar on the current study. Size of the proximal aorta is unchanged. Bilateral renal cysts. No hydronephrosis., 1. Increase in extensive emphysematous changes without evidence of an acute intrathoracic process or suspicious-appearing pulmonary nodules. 2. Indeterminate nodule retroareolar left breast. 3. Cholelithiasis without evidence of acute cholecystitis. 4. Multiple small left renal cysts are again noted. Initial ED EKG: normal axis, normal QRS complex, rhythm (SINUS), nonspecific ST T wave chg Prior EKG: unchanged Rhythm Strip: sinus tachycardia (KRISTINE CALVERT MD) Departure Departure Referrals: Danie GUILLEN MD (PCP/Family) Departure Forms: Customer Survey General Discharge Information (NORMA HOWARD,OLLIE) Departure Disposition: STILL A PATIENT Condition: Fair Clinical Impression Primary Impression: COPD with acute exacerbation Admission Note Spoke With: ELIAN TOWNSEND MD Documentation of Exam: Documentation of any treatments & extenuating circumstances including Concerns Regarding Discharge (functional status, medication knowledge or non-compliance, living conditions, etc.) that warrant an admission rather than observation: Supplemental oxygen serial beta agonist nebs and IV steroids medication adjustment physical therapy continuing care discharge planning Resident Co-Sign Statement Statement: ED Attending supervision documentation- x I saw and evaluated the patient. I have also reviewed all the pertinent lab results and diagnostic results. I agree with the findings and the plan of care as documented in the Resident's documentation. [] I have reviewed the ED Record and agree with the Resident's documentation. [] Additions or exceptions (if any) to the Resident's note and plan are summarized below: [] (KRISTINE CALVERT MD) Critical Care Note Critical Care Note Critical Care Time: non-applicable (KRISTINE CALVERT MD) Departure Referrals: Danie GUILLEN MD (PCP/Family) Departure Forms: Customer Survey General Discharge Information (NORMA HOWARD,OLLIE) Departure Disposition: STILL A PATIENT Condition: Fair Clinical Impression Primary Impression: COPD with acute exacerbation Admission Note Spoke With: ELAIN TOWNSEND MD Documentation of Exam: Documentation of any treatments & extenuating circumstances including Concerns Regarding Discharge (functional status, medication knowledge or non-compliance, living conditions, etc.) that warrant an admission rather than observation: Supplemental oxygen serial beta agonist nebs and IV steroids medication adjustment physical therapy continuing care discharge planning Resident Co-Sign Statement Statement: ED Attending supervision documentation- x I saw and evaluated the patient. I have also reviewed all the pertinent lab results and diagnostic results. I agree with the findings and the plan of care as documented in the Resident's documentation. [] I have reviewed the ED Record and agree with the Resident's documentation. [] Additions or exceptions (if any) to the Resident's note and plan are summarized below: [] (KRISTINE CALVERT MD) Critical Care Note Critical Care Note Critical Care Time: non-applicable (KRISTINE CALVERT MD)
[2016-07-20 12:24] LABS: ABSOLUTE BASOPHIL COUNT 0 /CUMM (0.0-0.2); ABSOLUTE EOSINOPHIL COUNT 0.2 /CUMM (0.0-0.7); ABSOLUTE GRANULOCYTE CT 7.3 /CUMM (1.4-6.5); ABSOLUTE LYMPH COUNT 1.3 /CUMM (1.2-3.4); ABSOLUTE MONOCYTE COUNT 0.4 /CUMM (0.10-0.60); BASOPHIL % 0.2 % (0.0-2.0); EOSINOPHIL % 2.3 % (0-5); HEMATOCRIT 46.2 % (37-47); MEAN CORPUSCULAR HGB 26.7 PG (27.0-31.0); MEAN CORPUSCULAR HGB CONC 32.2 G/DL (33.0-37.0); MEAN CORPUSCULAR VOLUME 82.8 FL (81.0-99.0); MEAN PLATELET VOLUME 8.4 FL (7.4-10.4); PLATELET COUNT 249 /CUMM (130-400); RBC DISTRIBUTION WIDTH 14.9 % (11.5-14.5); RED BLOOD CELL CT 5.58 /CUMM (4.20-5.40); WHITE BLOOD CELL COUNT 9.3 /CUMM (4.8-10.8)
--- NOTE | 2016-07-20 13:58 | CT SCAN REPORT ---
EXAMINATION: CT CHEST WITHOUT CONTRAST CLINICAL INFORMATION: Dyspnea on exertion with increasing oxygen requirements. COMPARISON: 07/12/2011 TECHNIQUE: Multidetector volumetric CT imaging of the chest was done. Axial MIP volume rendering provided. Sagittal and coronal reformatted images were obtained. DLP: 190 mGy-cm. FINDINGS: PAPER TESTER: The lungs remain hyperexpanded with upper lobe emphysematous changes again noted. LUNGS: There are extensive destructive bullous emphysematous changes most notably in the upper lobes and lingula on the left side with shift of the mediastinum towards the right. These have increased compared with the previous exam. There is a staple line identified in the periphery of the right upper lobe laterally consistent with previous wedge resection. Under 5 mm micronodules along the major fissures bilaterally are likely small lymph nodes. There are no suspicious-appearing pulmonary nodules identified. Mild diffuse ground-glass opacity throughout the more normal-appearing areas of the lower lobes is likely related to vessel and interstitial crowding due to compression from the extensive emphysematous changes predominately in the upper lobes. MEDIASTINUM: There is no evidence of mediastinal, hilar or lower cervical lymphadenopathy. Thyroid gland appears unremarkable. There are mild atherosclerotic changes. PLEURA: There is no pleural effusion. No pleural mass or thickening. AXILLA: There is no axillary or internal mammary adenopathy. There is asymmetry in the retroareolar left breast for which mammography is recommended to further evaluate if not recently performed. Finding has increased compared with the previous exam. UPPER ABDOMEN: There are 2 small calcified gallstones identified dependently in the gallbladder largely unchanged. Multiple small left renal cysts one of which is hyperdense and unchanged compared with the CT dated 09/09/2013. OSSEOUS STRUCTURES: No aggressive-appearing osseous lesions are seen. IMPRESSION: 1. Increase in extensive emphysematous changes without evidence of an acute intrathoracic process or suspicious-appearing pulmonary nodules. 2. Indeterminate nodule retroareolar left breast. 3. Cholelithiasis without evidence of acute cholecystitis. 4. Multiple small left renal cysts are again noted.
--- NOTE | 2016-07-20 14:39 | ULTRASOUND REPORT ---
EXAMINATION: US RETROPERITONEAL LIMITED (AORTA) CLINICAL INFORMATION: Abdominal pain radiating to the back. Evaluate for dissection.. Smoking history. COMPARISON: Ultrasound from 08/05/2012. CT performed 09/09/2013. TECHNIQUE: Grayscale, color Doppler and spectral Doppler evaluation of the abdominal aorta. Both kidneys are also evaluated. FINDINGS: Limited evaluation of the aorta due to body habitus. The measurements of the aorta in maximum AP and transverse dimensions respectively are as follows: Proximal: 2.4 x 2.6 cm. (Previously 2.4 x 2.7 cm). Mid: 2.3 x 2.7 cm. (Not previously visualized on ultrasound). This is fairly similar to prior CT given differences in technique. Distal: Not visualized. The measurements of the common iliac arteries in maximum AP dimension are as follows: Right Common Iliac Artery: Not visualized Left Common Iliac Artery: Not visualized Both kidneys are seen and evaluated. No hydronephrosis. There is a right lower pole simple cyst measuring 1.1 cm. The right kidney measures 10.3 cm in long axis dimension. Left kidney measures 11.3 cm in long axis dimension. There are multiple left renal cysts. Upper pole simple cyst measures 3 cm. Adjacent upper pole simple cyst measures 2.8 cm. Exophytic midpole simple cyst measures 4.8 cm in maximum dimension. Exophytic lower pole cyst measures 1.9 cm. There is also a focus of increased echogenicity at the lower pole measuring 1.2 cm. This has the appearance of calcification. IMPRESSION: Limited evaluation of the aorta due to body habitus. Mild ectasia is seen on prior CT at the mid abdominal aorta, which is likely similar on the current study. Size of the proximal aorta is unchanged. Bilateral renal cysts. No hydronephrosis.
[2016-07-20] MEDS ORDERED: PREDNISONE2.5 M1 PO (14:41)
--- NOTE | 2016-07-20 18:18 | History & Physical ---
AMBREEN HOWARD,ROSALINDA 07/20/161813: General Information and HPI MD Statement: I have seen and personally examined PANKAJ MORALES and documented this H&P. The patient is a 76 year old F who presented with a patient stated chief complaint of [Palpitations ]. Source of Information: patient, old records History of Present Illness: Patient is a 76 YOF with PMH significant for pulmonary hypertension, diastolic congestive heart failure, chronic COPD on home oxygen of 2.5L, chronic steroids 2.5mg daily, multifocal atrial tachycardia on diltiazem was sent to ED by Dr. Turner and concern of progressive worsening of her dyspnea, pounding sensation in the abdomen. Patient has been having intermittent palpitations at baseline. For the past few days her palpitations became more frequent, feels pounding sensations in her abdomen, exertional shortness of breath limiting her daily activities. In addition she also feels weak with profuse sweating for the last 1 week. She also reports significant headaches. Today she made a call to Dr. Turner when she was redirected to ED in concern of worsening of pre-existing abdominal aortic dilation. Denies any chest pain, nausea, vomiting, diarrhea, changes in medications. Baseline - able to walk for short distances independently, intermittent palpitations requiring as necessary diltiazem 30 mg. Dizzy with walking requiring meclizine. 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 Reportedly taking her medications regularly, no recent changes in diet, medications. Allergies/Medications Allergies: Coded Allergies: Iodinated Contrast Media - Oral and (IODINATED CONTRAST MEDIA - IV DYE) ( Intermediate, HIVES, RASH 04/27/15) Penicillins (Intermediate, HIVES 04/27/15) Sulfa (Sulfonamide Antibiotics) (Intermediate, HIVES 04/27/15) methylprednisolone (Mild, "TOO MANY SIDE EFFECTS, HIGH SUGAR, LOOSE TEETH, NECK BONES" 04/27/15) Home Med list Benzonatate 100 MG CAPSULE 1 CAP PO BIDP PRN COUGH (Reported) Budesonide/Formoterol Fumarate (Symbicort 160-4.5 Mcg Inhaler) 160 MCG-4.5 MCG/ ACTUATION HFA.AER.AD 2 PUF INH BID COPD (Reported) Diltiazem HCl (Cardizem Cd) 240 MG CAP.ER.24H 1 CAP PO DAILY HEART (Reported) Diltiazem HCl 30 MG TABLET 1 TAB PO DAILY PRN HEART (Reported) Docusate Sodium (Colace) 100 MG CAPSULE 1 CAP PO QPM CONSTIPATION (Reported) Ergocalciferol (Vitamin D2) (Vitamin D2) 50,000 UNIT CAPSULE 1 CAP PO QW SUPPLEMENT (Reported) Furosemide 20 MG TABLET 1 TAB PO DAILY PRN WATER PILL (Reported) Ipratropium/Albuterol Sulfate (Iprat-Albut 0.5-3(2.5) MG/3 Ml) 0.5 MG-3 MG (2.5 MG BASE)/3 ML AMPUL.NEB 1 INH PO 4 TIMES/DAY BREATHING PROBLEMS (Reported) Lorazepam 1 MG TABLET 1 TAB PO QPM SLEEP (Reported) Lorazepam (Ativan) 0.5 MG TABLET 1 TAB PO BIDP PRN ANXIETY (Reported) Meclizine HCl 12.5 MG TABLET 1 TAB PO BID DIZZINESS (Reported) Multivitamin (One Daily Multivitamin) 1 EACH TABLET 1 TAB PO DAILY SUPPLEMENT (Reported) Omeprazole 20 MG CAPSULE.DR 1 CAP PO DAILY PRN ACID (Reported) Polyethylene Glycol 3350 (Miralax) 17 GRAM POWD.PACK 1 PAC PO DAILY PRN CONSTIPATION (Reported) dissolve in water Prednisone 2.5 MG TABLET 1 TAB PO DAILY COPD (Reported) Sennosides/Docusate Sodium (Senna-Docusate Sodium Tablet) 8.6 MG-50 MG TABLET 1 TAB PO QPM CONSTIPATION (Reported) Sucralfate 1 GRAM/10 ML ORAL.SUSP 1 GM PO DAILY GIVE 1/2 HOUR PRIOR TO [facility] DOSE Compliance With Home Meds: GOOD Past History Travel History Traveled to [place] past 21 day No Medical History Neurological: dizziness EENT: NONE Cardiovascular: diastolic CHF, hyperlipidemia, ATRIAL TACYCARDIA Respiratory: COPD, obstructive sleep apnea, USES NASAL O2 AT 2.5 L Gastrointestinal: NONE Hepatic: NONE Renal: NONE Musculoskeletal: osteoporosis Psychiatric: NONE Endocrine: NONE Blood Disorders: NONE Cancer(s): NONE REGISTERED RADIOGRAPHER/Reproductive: NONE History of MRSA: No History of VRE: No History of CDIFF: No Surgical History Surgical History: RLL PARTIAL LOBECTOMY R/T GRANULOMAS Past Family/Social History Family History Relations & Conditions if any FATHER FH myocardial infarction male first degree age known MOTHER FH: diabetes mellitus Psychosocial History Where do you live? Home Who Do You Live With? self Services at Home: Oxygen Primary Language: New Zealander Functional Ability ADLs Independent: dressing, eating, toileting, bathing. Ambulation: independent IADLs Independent: shopping, housework, finances, food prep, telephone, transportation , medication admin. Review of Systems Review of Systems Constitutional: Reports: see HPI. Comments ROS as mentioned above Exam & Diagnostic Data Last 24 Hrs of Vital Signs/I&O Vital Signs Date Time Temp Pulse Resp B/P B/P Pulse O2 O2 Flow FiO2 Mean Ox Delivery Rate 07/20 2004 Nasal 2.5L Cannula 07/20 1827 97.3 100 22 144/63 93 Nasal 3.0L Cannula 07/20 1625 92 Nasal 2.0L Cannula 07/20 1621 156/70 07/20 1619 97.3 106 22 170/74 91 Nasal 2.0L Cannula 07/20 1428 97.0 91 22 165/72 92 Nasal 2.0L Cannula 07/20 1210 94 Nasal 3.0L Cannula 07/20 1205 96.9 102 22 178/78 95 Nasal 2.0L Cannula 07/20 1200 90 Nasal 2.0L Cannula Intake & Output 07/20 1600 07/20 0800 07/20 0000 Intake Total 100 Output Total Balance 100 Intake, IV 100 Patient 59.874 kg Weight Weight Reported by Patient Measurement Method Physical Exam General Appearance Alert, Oriented X3, Moderate Distress, prone position, gasping for breath Skin No Rashes, No Breakdown HEENT Atraumatic, PERRLA, EOMI Neck Supple Cardiovascular Normal S1, Normal S2, ? systolic murmur Lungs Normal Air Movement, diffuse bilateral wheezing Abdomen Normal Bowel Sounds, Soft, No Tenderness Neurological Strength at 5/5 X4 Ext, Normal Tone, Sensation Intact, Cranial Nerves 3-12 NL Extremities No Clubbing, No Cyanosis, No Edema Vascular Normal Pulses Last 24 Hrs of Labs/Eduardo: Laboratory Tests 07/20/16 2130: Troponin I Pending 07/20/16 1205: Lipase Cancelled 07/20/16 1200: Anion Gap 9, Estimated GFR > 60, BUN/Creatinine Ratio 30.0 H, Glucose 169 H, Calcium 9.5, Total Bilirubin 0.6, AST 23, ALT 40, Alkaline Phosphatase 87, Troponin I < 0.01, Total Protein 7.1, Albumin 4.5, Globulin 2.6, Albumin/ Globulin Ratio 1.7, Lipase 131, CBC w Diff NO MAN DIFF REQ, RBC 5.58 H, MCV 82.8, MCH 26.7 L, RDW 14.9 H, MPV 8.4, Gran % 79.0 H, Lymphocytes % 13.9 L, Monocytes % 4.6, Eosinophils % 2.3, Basophils % 0.2, Absolute Granulocytes 7.3 H, Absolute Lymphocytes 1.3, Absolute Monocytes 0.4, Absolute Eosinophils 0.2, Absolute Basophils 0, PUBS MCHC 32.2 L Assessment/Plan Assessment: Patient is a 76-year-old female with significant past medical history of pulmonary hypertension, chronic COPD on home oxygen of 2.5L, chronic steroids 2.5mg daily was sent to ED by Dr. Turner and concern of progressive worsening of her dyspnea, pounding sensation in the abdomen. ER course Vital signs Afebrile, blood pressure 178/78 mmHg, pulse 102, on 2.5 L oxygen Labs are unremarkable Imaging Abdominal ultrasound Limited evaluation of the aorta due to body habitus. Mild ectasia is seen on prior CT at the mid abdominal aorta, which is likely similar on the current study. Size of the proximal aorta is unchanged. Bilateral renal cysts. No hydronephrosis. Chest CT 1. Increase in extensive emphysematous changes without evidence of an acute intrathoracic process or suspicious-appearing pulmonary nodules. 2. Indeterminate nodule retroareolar left breast. 3. Cholelithiasis without evidence of acute cholecystitis. 4. Multiple small left renal cysts are again noted Plan Admitted to telemetry Acute on chronic hypoxic respiratory failure Patient is on home oxygen 2.5 L, chronic prednisone therapy, on inhalers. She was unable to speak in full sentences at her baseline. She follows Dr. Guan. * Started on IV Solu-Medrol 40 mg every 12 hours * TRC/nebulizers * Continue her home medications Julissasalon Omayra Acute worsening of intermittent palpitations in MAT patient Patient has history of multifocal atrial tachycardia on Cardizem 240 mg daily with 30 mg Cardizem when necessary for intermittent palpitations. She reports pounding sensation in her abdomen. Had a history of palpitation of abdominal aorta. Repeat abdominal ultrasound didn't show any acute changes. * Follows Dr. Turner * Continue her home medications for now * Continue meclizine for dizziness with walking diabetes: Insulin sliding scale (on oral hypoglycemics at home) Anxiety: Lorazepam 1 mg at night, 0.5 mg twice a day when necessary DVT prophylaxis * Subcutaneous Lovenox CODE STATUS * Full code As Ranked By This Provider Problem List: 1. COPD EXACERBATION 2. COPD ON HOME OXYGEN 3. Respiratory distress 4. Multifocal atrial tachycardia Core Measures/Miscellaneous Acute Coronary Syndrome ACS Diagnosis: No Cerebrovascular Accident CVA/TIA Diagnosis: No Congestive Heart Failure CHF Diagnosis: No Venous Thromboembolism VTE Risk Factors: Immobility, paresis [facility] prophylaxis d/t: No contraindications No VTE Pharm Prophylaxis d/t: No contraindications VTE Diagnosis: No VTE Type: NONE VTE Confirmed by (Test): NONE Severe Sepsis Severe Sepsis Present: No Septic Shock Septic Shock Present: No Miscellaneous Documentation Attending Case Discussed With: ELIAN TOWNSEND MD Primary Care Physician: Danie GUILLEN MD Patient sees these Specialists Dr. Guan Level of Patient Care: General Medicine ELIAN TOWNSEND MD 07/20/16 1843: Attending MD Review Statement Attending Statement Attending MD Statement: examined this patient, discuss w/resident/PA/CONSULTING ENGINEER, agreed w/resident/PA/CONSULTING ENGINEER, reviewed EMR data (avail) Attending Assessment/Plan: 76F PMH COPD on 2.5L NC at home, pulmonary hypertension, multifocal atrial tachycardia, chronic Prednisone 2.5mg presenting with severe dyspnea on exertion and increased oxygen requirements, on 4L in ED. Patient has been feeling weak and with a headache for the past 4 days. She is severely dyspneic with minimal exertion and has bilateral wheezing on exam. She is otherwise well, afebrile, stable vitals, labs thus far unremarkable. Patient also complains of palpitations for the past few days and is found to have sinus tachycardia 140's in ED with no acute EKG changes. 1. Acute exacerbation of COPD 2. Acute on chronic hypoxemic respiratory failure 3. Dyspnea on exertion 4. Pulmonary hypertension 5. Chronic steroid use 6. Generalized weakness Plan - Admit to telemetry - Obtain CXR - Pulmonary consult - Start Solumedrol 40mg q8h - TRC/nebulizer treatments - 5 day course of Azithromycin - Cardiology consult - Continue Cardizem, may require IV pushes if tachycardia continues - Repeat EKG and troponin - Continue home medications - DVT PPx MARY JANE MELO MD 07/20/16 2015: Resident Review Statement Other Findings: 76-year-old female with past medical history of diastolic congestive heart failure, hyperlipidemia, COPD on 2 L of oxygen on chronic by mouth prednisone, obstructive sleep apnea, osteoporosis was sent to the ED by his assistant men's soccer coach for thumping sensation in her abdomen. Patient reports that she's been having palpitations and thumping sensation in her abdomen for the last 4-5 days about 3 -4 times a day. She also reports that her legs become weak, dizzy. Denies chest pain, back pain. Patient also reports that She was seen in a assistant men's soccer coach office for a Holter monitor this morning.She also complains of wheezing which is increased over the last 3-4 days. Denies fever, chills, productive cough, sick contacts, chest pains, palpitations, nausea, vomiting. On examination alert awake, oriented 3 Cardiovascular S1, S2 regular Respiratory: Bilateral diffuse expiratory wheezing present, no crackles Abdomen: Soft, nontender Extremities: No pedal edema Please refer to H&P for vitals and labs Assessment and plan 1. Acute on chronic hypoxemic respiratory failure secondary to acute exacerbation of COPD - Patient was given IV Solu-Medrol in the ED which we will continue. Patient has allergic reaction to Solu-Medrol and hence will give it IV fluids and a slow infusion - Started on 5 days of azithromycin 2. History of SVT - Unclear if her previous episodes of palpitations and thumping or SVTs as her pulse oximeter reading was in the 150s at home and-we will obtain cardiology consult in a.m. monitor telemetry for 24 hours. -Continue Cardizem - Repeat EKG and troponins 2. COPD -Currently on home oxygen at baseline -Continue IV steroids and inhalers We will continue her other home medications for anxiety and dizziness Full CODE STATUS DVT prophylaxis with Lovenox
--- NOTE | 2016-07-20 18:48 | Admission Certification ---
Admission Certification Certification Statement - As attending physician, I certify that at the time of - admission, based on clinical presentation, severity of - symptoms, need for further diagnostic testing and - therapeutic interventions, and risk of adverse outcomes - without in-hospital treatment, in my clinical assessment, - this patient requires an acute hospital stay for a minimum - of two nights or longer. I have also considered psychsocial - factors such as support system, advanced age, financial - issues, cognitive issues, and failed out-patient treatments, - past re-admission history, safety of patient, and lack of - compliance as applicable. Specific rationale supporting this admission is: COPD exacerbation, dyspnea on minimal exertion with increased oxygen requirements
[2016-07-20 19:30] VITALS: BP 138/80
--- NOTE | 2016-07-20 20:13 | PN- Student ---
Subjective Subjective: Source and Reliability: Self referred, seems reliable CC: "I have a thumping in my abdomen." HPI: Pt. is a 76 y.o. CF with a past med hx of Chronic COPD on 2.5L of O2 at home, CHF, pulm HTN, multifocal atrial tachycardia on diltiazem, sleep apnea, and hyperlipidemia who is presenting with a 4 day history of progressive shortness of breath as per recommendation of the bobtailer. Pt. states that when she stands up and walk, her legs feel weak and shaky, she feel palpitations , more short of breath, and her blood pressure would increase to a systolic of 184. As this happens, she feels a "thumping in her abdomen." She states she is short of breath because of her COPD, but has never experienced an episode like this before. Associated symptoms include weakness, dry cough, increase in wheezing, diaphoresis, headache, nausea, and dizziness. She denies eating any salty food and has been using her inhaler 4 times a day like she usually does. ROS: denies vomiting PMHX: dizziness diastolic CHF Hyperlipidemia atrial tachycardia COPD on 2.5L of oxygen obstructive sleep apnea osteoporsis Surgical history and past hospitalizations Was hospitalized for a COPD exacerbation on 05/23/16 FHX: Mother: DM Father: VT Objective Objective: PE: Neuro: Alert and Oriented. Cooperative, affect is appropriate to situation. Respiratory: She appears to be in respiratory distress. pursed lips breathing, using accessory muscles. CV: S1 and S2 heard upon aucultation GI: normal bowel sounds in all 4 quadrants Vital Signs Date Time Temp Pulse Resp B/P B/P Pulse O2 O2 Flow FiO2 Mean Ox Delivery Rate 07/20 2004 Nasal 2.5L Cannula 07/20 1827 97.3 100 22 144/63 93 Nasal 3.0L Cannula 07/20 1625 92 Nasal 2.0L Cannula 07/20 1621 156/70 07/20 1619 97.3 106 22 170/74 91 Nasal 2.0L Cannula 07/20 1428 97.0 91 22 165/72 92 Nasal 2.0L Cannula 07/20 1210 94 Nasal 3.0L Cannula 07/20 1205 96.9 102 22 178/78 95 Nasal 2.0L Cannula 07/20 1200 90 Nasal 2.0L Cannula Last 24 Hours I&Os 07/20 1600 07/20 0800 07/20 0000 Intake Total 100 Output Total Balance 100 Intake, IV 100 Patient 132 lb Weight Weight Reported by Patient Measurement Method Laboratory Tests 07/20/16 1205: Lipase Cancelled 07/20/16 1200: Anion Gap 9, Estimated GFR > 60, BUN/Creatinine Ratio 30.0 H, Glucose 169 H, Calcium 9.5, Total Bilirubin 0.6, AST 23, ALT 40, Alkaline Phosphatase 87, Troponin I < 0.01, Total Protein 7.1, Albumin 4.5, Globulin 2.6, Albumin/ Globulin Ratio 1.7, Lipase 131, CBC w Diff NO MAN DIFF REQ, RBC 5.58 H, MCV 82.8, MCH 26.7 L, RDW 14.9 H, MPV 8.4, Gran % 79.0 H, Lymphocytes % 13.9 L, Monocytes % 4.6, Eosinophils % 2.3, Basophils % 0.2, Absolute Granulocytes 7.3 H, Absolute Lymphocytes 1.3, Absolute Monocytes 0.4, Absolute Eosinophils 0.2, Absolute Basophils 0, PUBS MCHC 32.2 L Orders Procedure Date/time Status Heart Healthy Diet 07/21 B Active BASIC ELECTROLYTES PLUS BUN&CR 07/21 0600 Active Regular Diet 07/20 L Complete Regular Diet 07/20 D Complete Teach/Educate 07/20 1938 Active Pain Treatment and Response 07/20 1938 Active Nutritional Intake, Monitor 07/20 1938 Active Isolation 07/20 1938 Active Patient Care Conference 07/20 1938 Active Pathway - chart 07/20 1824 Active Code Status 07/20 1824 Active Patient Data 07/20 1526 Active OXYGEN SETUP (GEN) 07/20 1521 Active Saline Lock 07/20 1521 Active Admit to inpatient 07/20 1521 Active Vital Signs 07/20 1521 Active Activity/Ambulation 07/20 1521 Active Code Status 07/20 1521 Complete ED- NURSING MISC 07/20 1350 Active Intake & Output 07/20 1308 Active Add-on Test (ER Only) 07/20 1306 Active AEROSOL (GEN) 07/20 1214 Complete TROPONIN LEVEL 07/20 1200 Complete LIPASE 07/20 1200 Complete COMPREHENSIVE METABOLIC PANEL 07/20 1200 Complete CBC WITHOUT DIFFERENTIAL 07/20 1200 Complete EKG 07/20 1149 Active TRC EVALUATION (GEN) 07/20 UNK Active House Staff 07/20 UNK Active VTE Mechanical Prophylaxis 07/20 UNK Active Vital Signs 07/20 UNK Active Telemetry/Fiber Optics Supervisor 07/20 UNK Active FingerStick- Glucose 07/20 UNK Active
[2016-07-20 23:15] VITALS: BP 100/54
--- NOTE | 2016-07-21 07:51 | PN- Housestaff ---
See Addendum Subjective Follow-up For: 1. Acute exacerbation of COPD 2. Acute on chronic hypoxemic respiratory failure 3. Dyspnea on exertion 4. Pulmonary hypertension 5. Chronic steroid use 6. Generalized weakness Tele-Events Since Last Visit: Sinus rhythm, heart rate 78-87, no overnight events Subjective: Afebrile, hemodynamically stable, and saturating mid 90s on 2.5 L of oxygen. Patient reports improvement in her symptom however she still have a mild palpitation and some shortness of breath. Patient denies any other active complaints. Review of Systems Constitutional: Reports: see HPI. Objective Last 24 Hrs of Vital Signs/I&O Vital Signs Date Time Temp Pulse Resp B/P B/P Pulse O2 O2 Flow FiO2 Mean Ox Delivery Rate 07/21 0817 97.8 84 20 126/70 94 Nasal 2.5L Cannula 07/21 0800 94 Nasal 2.5L Cannula 07/21 0759 93 Nasal 2.5L Cannula 07/20 2315 98.8 83 22 100/54 94 Nasal Cannula 07/20 2252 Nasal 2.5L Cannula 07/20 2004 Nasal 2.5L Cannula 07/20 1930 98.6 86 22 138/80 92 Nasal 2.5L Cannula 07/20 1827 97.3 100 22 144/63 93 Nasal 3.0L Cannula 07/20 1625 92 Nasal 2.0L Cannula 07/20 1621 156/70 07/20 1619 97.3 106 22 170/74 91 Nasal 2.0L Cannula Intake & Output 07/21 1600 07/21 0800 05 0000 Intake Total 565 240 Output Total 200 750 Balance 365 -510 Intake, IV 325 Intake, Oral 240 240 Number 0 Bowel Movements Output, Urine 200 750 Patient 59.874 kg Weight Weight Reported by Patient Measurement Method Physical Exam General Appearance: Alert, Oriented X3, Cooperative, No Acute Distress HEENT: Atraumatic, PERRLA, EOMI, Mucous Membr. moist/pink Cardiovascular: Regular Rate, Normal S1, Normal S2, No Murmurs Lungs: rhonchi all over lungs Abdomen: Normal Bowel Sounds, Soft, No Tenderness Neurological: Normal Speech Extremities: No Clubbing, No Cyanosis, No Edema Current Medications: Current Medications Sig/Bill Start time Last Medication Dose Route Stop Time Status Admin Acetaminophen 650 MG Q8P PRN 07/20 1830 AC PO Acetaminophen/ 1 TAB Q8P PRN 07/20 1830 AC Hydrocodone Bitart PO Albuterol Sulfate 3 ML EVERY 4 HRS/AWAKE 07/21 0800 AC 07/21 INH 1135 Azithromycin 500 MG AT BEDTIME 07/20 2330 AC 07/21 Sodium Chloride 250 ML IV 07/24 2259 0123 Benzonatate 100 MG BID 07/20 1830 AC 07/21 PO 0819 Budesonide/ 2 PUF BID 07/20 2200 AC 07/21 Formoterol Fumarate INH 1016 Diltiazem HCl 240 MG DAILY 07/21 1000 AC 07/21 PO 1016 Docusate Sodium 100 MG BID 07/21 2200 AC 07/21 PO 1222 Docusate Sodium 100 MG QPM 07/20 2200 DC 07/20 PO 2227 Enoxaparin Sodium 40 MG DAILY 07/21 1000 AC SC Guaifenesin 10 ML .STK-MED ONE 07/21 0007 DC PO 07/21 0008 Guaifenesin 10 ML Q6P PRN 07/20 2330 AC 07/21 PO 1221 Insulin Aspart 0 TIDAC 07/21 0800 AC 07/21 SC 1224 Ipratropium [place] 2.5 ML EVERY 4 HRS/AWAKE 07/21 0800 AC 07/21 INH 1135 Lorazepam 1 MG QPM 07/20 2200 AC 07/20 PO 2226 Meclizine HCl 12.5 MG BID 07/20 2200 AC 07/21 PO 0640 Methylprednisolone 40 MG Q12H 07/21 0800 DC Dextrose/Water 50 ML IV Methylprednisolone 40 MG Q8 07/20 2311 DC 07/21 Dextrose/Water 50 ML IV 0602 Morphine Sulfate 2 MG Q8P PRN 07/20 1830 AC IV Omeprazole 20 MG DAILY PRN 07/20 1830 AC PO Ondansetron HCl 4 MG ONCE ONE 07/20 1900 DC 07/20 IV 07/20 190 1900 Ondansetron HCl 0 .STK-MED ONE 07/20 1855 DC .ROUTE Patient Medication 1 ED .STK-MED ONE 07/21 1358 DC Teaching ED 07/21 1359 Prednisone 40 MG ONCE ONE 07/22 1000 AC PO 07/22 1001 Sucralfate 1 GM DAILY 07/21 1000 AC 07/21 PO 0649 Last 24 Hrs of Lab/Eduardo Results Last 24 Hrs of Labs/Mics: Laboratory Tests 07/21/16 0600: Anion Gap 7, Estimated GFR > 60, BUN/Creatinine Ratio 31.7 H 07/20/16 2130: Troponin I < 0.01 Assessment/Plan Assessment: Patient is a 76-year-old female with PMH of pulmonary hypertension, chronic COPD on home oxygen of 2.5L and chronic steroids 2.5mg daily who was sent to ED by Dr. Turner for a concern of progressive dyspnea, palpitation and pounding sensation in the abdomen. Abdominal ultrasound impression: Limited evaluation of the aorta due to body habitus. Mild ectasia is seen onprior CT at the mid abdominal aorta, which is likely similar on the currentstudy. Size of the proximal aorta is unchanged. Bilateral renal cysts. No hydronephrosis. Chest CT impression: 1. Increase in extensive emphysematous changes without evidence of an acute intrathoracic process or suspicious-appearing pulmonary nodules. 2. Indeterminate nodule retroareolar left breast. 3. Cholelithiasis without evidence of acute cholecystitis. 4. Multiple small left renal cysts are again noted Plan #Acute on chronic hypoxic respiratory failure most likely 2/2 COPD exacerbation Patient has a history of COPD. He is on home oxygen 2.5 L, prednisone 2.5 mg, and inhalers. Who presented complaining of shortness breath. WBCs was WNL. * Switch IV Solu-Medrol to 40 mg prednisone. Pulmonology was consulted. * Continue TRC/nebulizers * Continue Symbicort * Continue guaifenesin * Supply oxygen as needed * Continue Azithromycin(day 2) #Acute worsening of intermittent palpitations in MAT patient Patient has history of multifocal atrial tachycardia on Cardizem 240 mg daily with 30 mg Cardizem when necessary for intermittent palpitations. She presented complaining of palpitation and pounding sensation in her abdomen. Had a history abdominal aorta aneurysm. Repeat abdominal ultrasound didn't show any acute changes. Acute coronary syndrome was ruled out. * Continue diltiazem CD 240 mg daily * We will follow cardiology recommendation #T2DM * Insulin sliding scale * Fingerstick #Anxiety: * Continue Lorazepam 1 mg at night Heart healthy diet DVT prophylaxis SC Lovenox Full code Problem List: 1. COPD EXACERBATION Pain Ratin Pain Location: na Pain Goal: Remain pain free Pain Plan: See A&P Tomorrow's Labs & Rationales: See A&P
[2016-07-21 08:17] VITALS: BP 126/70
--- NOTE | 2016-07-21 09:39 | Cons- Pulmonary ---
General Information and HPI Consulting Request Date of Consult: 07/21/16 Requested By: Raymon Reason for Consult: COPD Source of Information: patient Exam Limitations: no limitations History of Present Illness: 76 year old woman admitted for dyspnea. Uses bronchodilators. Duonebs. Symbicort 2 puffs BID with rinsing of the mouth. Continued on steroids -2.5mg prednisone daily. +cough dry, helped with Robitussin DM +dyspnea on exertion primarily and at rest intermittently She is without fevers or chills. She has been taking Robitussin DM with some relief of her coughing symptoms. She is unable to attend pulmonary rehab. Declined Daliresp given side effect profile. Oxygen via nasal cannula 2.5LNC. CTA 1. Increase in extensive emphysematous changes without evidence of an acute intrathoracic process or suspicious-appearing pulmonary nodules. 2. Indeterminate nodule retroareolar left breast. 3. Cholelithiasis without evidence of acute cholecystitis. 4. Multiple small left renal cysts are again noted. Allergies/Medications Allergies: Coded Allergies: Iodinated Contrast Media - Oral and (IODINATED CONTRAST MEDIA - IV DYE) ( Intermediate, HIVES, RASH 04/27/15) Penicillins (Intermediate, HIVES 04/27/15) Sulfa (Sulfonamide Antibiotics) (Intermediate, HIVES 04/27/15) methylprednisolone (Mild, "TOO MANY SIDE EFFECTS, HIGH SUGAR, LOOSE TEETH, NECK BONES" 04/27/15) Home Med List: Benzonatate 100 MG CAPSULE 1 CAP PO BIDP PRN COUGH (Reported) Budesonide/Formoterol Fumarate (Symbicort 160-4.5 Mcg Inhaler) 160 MCG-4.5 MCG/ ACTUATION HFA.AER.AD 2 PUF INH BID COPD (Reported) Diltiazem HCl (Cardizem Cd) 240 MG CAP.ER.24H 1 CAP PO DAILY HEART (Reported) Diltiazem HCl 30 MG TABLET 1 TAB PO DAILY PRN HEART (Reported) Docusate Sodium (Colace) 100 MG CAPSULE 1 CAP PO QPM CONSTIPATION (Reported) Ergocalciferol (Vitamin D2) (Vitamin D2) 50,000 UNIT CAPSULE 1 CAP PO QW SUPPLEMENT (Reported) Furosemide 20 MG TABLET 1 TAB PO DAILY PRN WATER PILL (Reported) Ipratropium/Albuterol Sulfate (Iprat-Albut 0.5-3(2.5) MG/3 Ml) 0.5 MG-3 MG (2.5 MG BASE)/3 ML AMPUL.NEB 1 INH PO 4 TIMES/DAY BREATHING PROBLEMS (Reported) Lorazepam 1 MG TABLET 1 TAB PO QPM SLEEP (Reported) Lorazepam (Ativan) 0.5 MG TABLET 1 TAB PO BIDP PRN ANXIETY (Reported) Meclizine HCl 12.5 MG TABLET 1 TAB PO BID DIZZINESS (Reported) Multivitamin (One Daily Multivitamin) 1 EACH TABLET 1 TAB PO DAILY SUPPLEMENT (Reported) Omeprazole 20 MG CAPSULE.DR 1 CAP PO DAILY PRN ACID (Reported) Polyethylene Glycol 3350 (Miralax) 17 GRAM POWD.PACK 1 PAC PO DAILY PRN CONSTIPATION (Reported) dissolve in water Prednisone 2.5 MG TABLET 1 TAB PO DAILY COPD (Reported) Sennosides/Docusate Sodium (Senna-Docusate Sodium Tablet) 8.6 MG-50 MG TABLET 1 TAB PO QPM CONSTIPATION (Reported) Sucralfate 1 GRAM/10 ML ORAL.SUSP 1 GM PO DAILY GIVE 1/2 HOUR PRIOR TO PREDINSONE DOSE Current Medications: Current Medications Sig/Bill Start time Last Medication Dose Route Stop Time Status Admin Acetaminophen 650 MG Q8P PRN 07/20 1830 AC PO Acetaminophen/ 1 TAB Q8P PRN 07/20 1830 AC Hydrocodone Bitart PO Albuterol Sulfate 3 ML EVERY 4 HRS/AWAKE 07/21 0800 AC 07/21 INH 0756 Albuterol Sulfate 3 ML ONCE ONE 07/20 1200 DC 07/20 INH 07/20 1201 1212 Azithromycin 500 MG AT BEDTIME 07/20 2330 AC 07/21 Sodium Chloride 250 ML IV 07/24 2259 0123 Benzonatate 100 MG BID 07/20 1830 AC 07/21 PO 0819 Budesonide/ 2 PUF BID 07/20 2200 AC 07/20 Formoterol Fumarate INH 2227 Diltiazem HCl 240 MG DAILY 07/21 1000 AC PO Docusate Sodium 100 MG QPM 07/20 2200 AC 07/20 PO 2227 Enoxaparin Sodium 40 MG DAILY 07/21 1000 AC SC Guaifenesin 10 ML .STK-MED ONE 07/21 0007 DC PO 07/21 0008 Guaifenesin 10 ML Q6P PRN 07/20 2330 AC 07/21 PO 0119 Insulin Aspart 0 TIDAC 07/21 0800 AC SC Ipratropium [place] 2.5 ML EVERY 4 HRS/AWAKE 07/21 0800 AC 07/21 INH 0756 Ipratropium [place] 2.5 ML ONCE ONE 07/20 1200 DC 07/20 INH 07/20 1201 1212 Lorazepam 1 MG QPM 07/20 2200 AC 07/20 PO 2226 Meclizine HCl 12.5 MG BID 07/20 2200 AC 07/21 PO 0640 Methylprednisolone 40 MG Q12H 07/21 0800 DC Dextrose/Water 50 ML IV Methylprednisolone 40 MG Q8 07/20 2311 AC 07/21 Dextrose/Water 50 ML IV 0602 Methylprednisolone 0 .STK-MED ONE 07/20 1303 DC .ROUTE Methylprednisolone 40 MG ONCE ONE 07/20 1245 DC 07/20 IV 07/20 1246 1307 Morphine Sulfate 2 MG Q8P PRN 07/20 1830 AC IV Omeprazole 20 MG DAILY PRN 07/20 1830 AC PO Ondansetron HCl 4 MG ONCE ONE 07/20 1900 DC 07/20 IV 07/20 1901 1900 Ondansetron HCl 0 .STK-MED ONE 07/20 1855 DC .ROUTE Sucralfate 1 GM DAILY 07/21 1000 AC 07/21 PO 0649 Review of Systems Comments 18 pt ros reviewed pertinent positives and negatives are in the chart Past History Travel History Traveled to [place] past 21 day No Medical History Blood Transfusion Hx: No Neurological: dizziness EENT: NONE Cardiovascular: diastolic CHF, hyperlipidemia, ATRIAL TACYCARDIA Respiratory: COPD, obstructive sleep apnea, USES NASAL O2 AT 2.5 L Gastrointestinal: NONE Hepatic: NONE Renal: NONE Musculoskeletal: osteoporosis Psychiatric: NONE Endocrine: NONE Blood Disorders: NONE Cancer(s): NONE 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 Home Who Do You Live With? self Services at Home: Oxygen Primary Language: Portuguese Smoking Status: Former Smoker Functional Ability ADLs Independent: dressing, eating, toileting, bathing. Ambulation: independent IADLs Independent: shopping, housework, finances, food prep, telephone, transportation , medication admin. Exam & Diagnostic Data Last 24 Hrs of Vital Signs/I&O Vital Signs Date Time Temp Pulse Resp B/P B/P Pulse O2 O2 Flow FiO2 Mean Ox Delivery Rate 07/21 0817 97.8 84 20 126/70 94 Nasal 2.5L Cannula 07/21 0759 93 Nasal 2.5L Cannula 07/20 2315 98.8 83 22 100/54 94 Nasal Cannula 07/20 2252 Nasal 2.5L Cannula 07/20 2004 Nasal 2.5L Cannula 07/20 1930 98.6 86 22 138/80 92 Nasal 2.5L Cannula 07/20 1827 97.3 100 22 144/63 93 Nasal 3.0L Cannula 07/20 1625 92 Nasal 2.0L Cannula 07/20 1621 156/70 07/20 1619 97.3 106 22 170/74 91 Nasal 2.0L Cannula 07/20 1428 97.0 91 22 165/72 92 Nasal 2.0L Cannula 07/20 1210 94 Nasal 3.0L Cannula 07/20 1205 96.9 102 22 178/78 95 Nasal 2.0L Cannula 07/20 1200 90 Nasal 2.0L Cannula Intake & Output 07/21 1600 07/21 0800 07/21 0000 Intake Total 565 240 Output Total 200 750 Balance 365 -510 Intake, IV 325 Intake, Oral 240 240 Number 0 Bowel Movements Output, Urine 200 750 Patient 132 lb Weight Weight Reported by Patient Measurement Method Physical Exam Other Physical Findings: gen awake and alert heent ncat cvs s1, s2 lungs rare rhonchi, prolonged end expiratory phase abd soft bs+ ext without edema Last 48 Hrs of Labs/Eduardo: Laboratory Tests 07/21/16 0600: Anion Gap 7, Estimated GFR > 60, BUN/Creatinine Ratio 31.7 H 07/20/16 2130: Troponin I < 0.01 07/20/16 1205: Lipase Cancelled 07/20/16 1200: Anion Gap 9, Estimated GFR > 60, BUN/Creatinine Ratio 30.0 H, Glucose 169 H, Calcium 9.5, Total Bilirubin 0.6, AST 23, ALT 40, Alkaline Phosphatase 87, Troponin I < 0.01, Total Protein 7.1, Albumin 4.5, Globulin 2.6, Albumin/ Globulin Ratio 1.7, Lipase 131, CBC w Diff NO MAN DIFF REQ, RBC 5.58 H, MCV 82.8, MCH 26.7 L, RDW 14.9 H, MPV 8.4, Gran % 79.0 H, Lymphocytes % 13.9 L, Monocytes % 4.6, Eosinophils % 2.3, Basophils % 0.2, Absolute Granulocytes 7.3 H, Absolute Lymphocytes 1.3, Absolute Monocytes 0.4, Absolute Eosinophils 0.2, Absolute Basophils 0, PUBS MCHC 32.2 L Assessment/Plan Impression/Plan: Impression 76 year old woman * acute on chronic hypoxemic respiratory failure -aecopd * hx of MAT Plan -taper steroids -trc/nebs -can cont course of zithromax -cont symbicort with rinsing of the mouth -dc planning -o2 supplementation DVT prophylaxis at all times Consult Acknowledgment - Thank you for your consult request.
[2016-07-21 15:30] VITALS: BP 118/60
--- NOTE | 2016-07-21 16:05 | Cons- Cardiology ---
General Information and HPI Consulting Request Date of Consult: 07/21/16 Requested By: KELLIE CROCKER MD Reason for Consult: Palpitations and shortness of breath. Source of Information: patient, old records Exam Limitations: poor historian History of Present Illness: Mrs. 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 She has chronic intermittent palpitations that typically "come and go" and had previously implicated her nebulizers as playing a role in her palpitations ( "heart racing"). She previously tried cutting back on her nebulizer treatments, but didn't notice much difference in her palpitations. More recently, we had her start taking an additional 30 mg by mouth diltiazem along with the 240 mg of diltiazem CD she has been on which had been working. Allergies/Medications Allergies: Coded Allergies: Iodinated Contrast Media - Oral and (IODINATED CONTRAST MEDIA - IV DYE) ( Intermediate, HIVES, RASH 04/27/15) Penicillins (Intermediate, HIVES 04/27/15) Sulfa (Sulfonamide Antibiotics) (Intermediate, HIVES 04/27/15) methylprednisolone (Mild, "TOO MANY SIDE EFFECTS, HIGH SUGAR, LOOSE TEETH, NECK BONES" 04/27/15) Home Med List: Benzonatate 100 MG CAPSULE 1 CAP PO BIDP PRN COUGH (Reported) Budesonide/Formoterol Fumarate (Symbicort 160-4.5 Mcg Inhaler) 160 MCG-4.5 MCG/ ACTUATION HFA.AER.AD 2 PUF INH BID COPD (Reported) Diltiazem HCl (Cardizem Cd) 240 MG CAP.ER.24H 1 CAP PO DAILY HEART (Reported) Diltiazem HCl 30 MG TABLET 1 TAB PO DAILY PRN HEART (Reported) Docusate Sodium (Colace) 100 MG CAPSULE 1 CAP PO QPM CONSTIPATION (Reported) Ergocalciferol (Vitamin D2) (Vitamin D2) 50,000 UNIT CAPSULE 1 CAP PO QW SUPPLEMENT (Reported) Furosemide 20 MG TABLET 1 TAB PO DAILY PRN WATER PILL (Reported) Ipratropium/Albuterol Sulfate (Iprat-Albut 0.5-3(2.5) MG/3 Ml) 0.5 MG-3 MG (2.5 MG BASE)/3 ML AMPUL.NEB 1 INH PO 4 TIMES/DAY BREATHING PROBLEMS (Reported) Lorazepam 1 MG TABLET 1 TAB PO QPM SLEEP (Reported) Lorazepam (Ativan) 0.5 MG TABLET 1 TAB PO BIDP PRN ANXIETY (Reported) Meclizine HCl 12.5 MG TABLET 1 TAB PO BID DIZZINESS (Reported) Multivitamin (One Daily Multivitamin) 1 EACH TABLET 1 TAB PO DAILY SUPPLEMENT (Reported) Omeprazole 20 MG CAPSULE.DR 1 CAP PO DAILY PRN ACID (Reported) Polyethylene Glycol 3350 (Miralax) 17 GRAM POWD.PACK 1 PAC PO DAILY PRN CONSTIPATION (Reported) dissolve in water Prednisone 2.5 MG TABLET 1 TAB PO DAILY COPD (Reported) Sennosides/Docusate Sodium (Senna-Docusate Sodium Tablet) 8.6 MG-50 MG TABLET 1 TAB PO QPM CONSTIPATION (Reported) Sucralfate 1 GRAM/10 ML ORAL.SUSP 1 GM PO DAILY GIVE 1/2 HOUR PRIOR TO PREDINSONE DOSE Review of Systems Review of Systems: A 14 point system review was obtained and was noncontributory, other than as above except for the fact she wears glasses. 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 Home Who Do You Live With? self Services at Home: Oxygen Primary Language: Telugu Smoking Status: Former Smoker Functional Ability ADLs Independent: dressing, eating, toileting, bathing. Ambulation: independent IADLs Independent: shopping, housework, finances, food prep, telephone, transportation , medication admin. Exam & Diagnostic Data Vital Signs and I&O Vital Signs Date Time Temp Pulse Resp B/P B/P Pulse O2 O2 Flow FiO2 Mean Ox Delivery Rate 07/21 0817 97.8 84 20 126/70 94 Nasal 2.5L Cannula 07/21 0800 94 Nasal 2.5L Cannula 07/21 0759 93 Nasal 2.5L Cannula 07/20 2315 98.8 83 22 100/54 94 Nasal Cannula 07/20 2252 Nasal 2.5L Cannula 07/20 2004 Nasal 2.5L Cannula 07/20 1930 98.6 86 22 138/80 92 Nasal 2.5L Cannula 07/20 1827 97.3 100 22 144/63 93 Nasal 3.0L Cannula 07/20 1625 92 Nasal 2.0L Cannula 07/20 1621 156/70 07/20 1619 97.3 106 22 170/74 91 Nasal 2.0L Cannula Intake & Output 07/21 1600 07/21 0000 07/20 1600 07/20 0800 07/20 0000 Intake Total 565 240 100 Output Total 200 750 Balance 365 -510 100 Intake, IV 325 100 Intake, Oral 240 240 Number 0 Bowel Movements Output, Urine 200 750 Patient 132 lb 132 lb Weight Weight Reported by Patient Reported by Patient Measurement Method Physical Exam: Chronically ill-appearing elderly female in mild respiratory distress with nasal oxygen in place. Vital signs: See above. HEENT: Normocephalic, atraumatic, EOMI, slightly dry mucous membranes. Neck: No JVD, no bruits. Lungs: Decreased breath sounds bilaterally. Heart: S1, S2 with no murmur, gallop, or rub appreciated. PMI fifth ICS at [facility]. Abdomen: Soft, nontender, positive bowel sounds. Extremities: No edema. Labs/Eduardo Results: Laboratory Tests 07/21 07/20 07/20 0600 2130 1205 Chemistry Sodium (137 - 145 mmol/L) 139 Potassium (3.5 - 5.1 mmol/L) 4.7 Chloride (98 - 107 mmol/L) 100 Carbon Dioxide (22 - 30 mmol/L) 33 H Anion Gap (5 - 16) 7 BUN (7 - 17 mg/dL) 19 H Creatinine (0.5 - 1.0 mg/dL) 0.6 Estimated GFR (>60 ml/min) > 60 BUN/Creatinine Ratio (7 - 25 %) 31.7 H Troponin I (< 0.11 ng/ml) < 0.01 Lipase Cancelled 07/20 1200 Chemistry Sodium (137 - 145 mmol/L) 141 Potassium (3.5 - 5.1 mmol/L) 4.2 Chloride (98 - 107 mmol/L) 96 L Carbon Dioxide (22 - 30 mmol/L) 36 H Anion Gap (5 - 16) 9 BUN (7 - 17 mg/dL) 18 H Creatinine (0.5 - 1.0 mg/dL) 0.6 Estimated GFR (>60 ml/min) > 60 BUN/Creatinine Ratio (7 - 25 %) 30.0 H Glucose (65 - 99 mg/dL) 169 H Calcium (8.4 - 10.2 mg/dL) 9.5 Total Bilirubin (0.2 - 1.3 mg/dL) 0.6 AST (14 - 36 U/L) 23 ALT (9 - 52 U/L) 40 Alkaline Phosphatase (<127 U/L) 87 Troponin I (< 0.11 ng/ml) < 0.01 Total Protein (6.3 - 8.2 g/dL) 7.1 Albumin (3.5 - 5.0 g/dL) 4.5 Globulin (1.9 - 4.2 gm/dL) 2.6 Albumin/Globulin Ratio (1.1 - 2.2 %) 1.7 Lipase (23 - 300 U/L) 131 Hematology CBC w Diff NO MAN DIFF REQ WBC (4.8 - 10.8 /CUMM) 9.3 RBC (4.20 - 5.40 /CUMM) 5.58 H Hgb (12.0 - 16.0 G/DL) 14.9 Hct (37 - 47 %) 46.2 MCV (81.0 - 99.0 FL) 82.8 MCH (27.0 - 31.0 PG) 26.7 L RDW (11.5 - 14.5 %) 14.9 H Plt Count (130 - 400 /CUMM) 249 MPV (7.4 - 10.4 FL) 8.4 Gran % (42.2 - 75.2 %) 79.0 H Lymphocytes % (20.5 - 51.1 %) 13.9 L Monocytes % (1.7 - 9.3 %) 4.6 Eosinophils % (0 - 5 %) 2.3 Basophils % (0.0 - 2.0 %) 0.2 Absolute Granulocytes (1.4 - 6.5 /CUMM) 7.3 H Absolute Lymphocytes (1.2 - 3.4 /CUMM) 1.3 Absolute Monocytes (0.10 - 0.60 /CUMM) 0.4 Absolute Eosinophils (0.0 - 0.7 /CUMM) 0.2 Absolute Basophils (0.0 - 0.2 /CUMM) 0 PUBS MCHC (33.0 - 37.0 G/DL) 32.2 L Diagnostic Data EKG Results (07/20/2016) sinus arrhythmia, early precordial RS transition, small inferior Q waves, and no significant change when compared to previous tracing performed earlier on 07/20/2016. Other Results Chest CT (07/20/2016): Increase in extensive emphysematous changes without evidence of an acute intrathoracic process or suspicious-appearing pulmonary nodules. Indeterminate nodule retroareolar left breast. Cholelithiasis without evidence of acute cholecystitis. Multiple small left renal cysts are again noted. Aortic ultrasound (07/20/2016): Limited evaluation of the aorta due to body habitus. Mild ectasia is seen on prior CT at the mid abdominal aorta, which is likely similar on the current study. Size of the proximal aorta is unchanged. Bilateral renal cysts. No hydronephrosis. Assessment/Plan Assessment/Plan [id number] w/ hx heavy tobacco use, oxygen (2.5 L) and steroid dependent ( prednisone 2.5 mg) COPD with frequent exacerbations, chronic hypercapnic respiratory failure, remote eosinophilic granuloma with resection of RUL, mild pulmonary HTN, KIKI, small AAA, mild concentric LVH, stage I diastolic dysfunction, HLD, palpitations with previously documented MAT and sinus tachycardia, who we are asked to evaluate and help manage in regard to her palpitations and shortness of breath. Palpitations and shortness of breath with an acute exacerbation of COPD in this steroid and oxygen dependent elderly female on beta 2 agonists for her COPD, as well as, stage I diastolic dysfunction, previous MAT, and intermittent sinus tachycardia, etc. Naturally, palpitations occur frequently in individuals on beta-2 adrenergic agonists secondary to sinus tachycardia (less than or equal to 7%). Various other supraventricular and ventricular arrhythmias have also been reported. Mrs. Chase is also at increased risk for MAT which she has experienced in the past. Interestingly, although she felt her heart racing at home and thinks she documented a heart rate of 150 bpm, her heart rate was only found to be between 91-106 bpm in the ED and is presently 92 bpm. Recommendations: * Continue on telemetry, follow-up electrocardiogram and troponin. * Follow-up on pulmonary recommendations regarding oxygen, steroids, antibiotics , nebulizers, etc. * Continue on diltiazem CD 240 mg daily with "as needed" additional 30 mg of short acting diltiazem when she feels tachycardic, unless we find that her heart rates are consistently elevated, in which case would recommend increasing her diltiazem CD to 320 mg daily and continuing with the as needed short acting diltiazem 30 mg as needed. * Continue DVT prophylaxis. Consult Acknowledgment - Thank you for your consult request.
[2016-07-22 00:01] VITALS: BP 108/64
--- NOTE | 2016-07-22 07:15 | PN- Housestaff ---
See Addendum Subjective Follow-up For: 1. Acute exacerbation of COPD 2. Acute on chronic hypoxemic respiratory failure 3. Dyspnea on exertion 4. Pulmonary hypertension 5. Chronic steroid use 6. Generalized weakness Tele-Events Since Last Visit: Sinus rhythm, sinus tachycardia, heart rate 70 - 107, no overnight events. Subjective: Afebrile, hemodynamically stable, and saturating well on 2.5 L of oxygen. No acute overnight events reported. Patient reported significant improvement on her palpitation however it's still there but less intense. Patient did not have any bowel movement for the last 3 days. All cultures still negative. Review of Systems Constitutional: Reports: see HPI. Objective Last 24 Hrs of Vital Signs/I&O Vital Signs Date Time Temp Pulse Resp B/P B/P Pulse O2 O2 Flow FiO2 Mean Ox Delivery Rate 07/22 0849 94 Nasal 2.5L Cannula 07/22 0826 94 Nasal 2.5L Cannula 07/22 0825 98.1 82 18 122/68 96 Nasal 2.0L Cannula 07/22 0001 98.0 83 18 108/64 96 Nasal Cannula 07/22 0000 Nasal 2.5L Cannula 07/21 1615 92 Nasal 2.5L Cannula 07/21 1600 Nasal 2.5L Cannula 07/21 1530 98.1 83 16 118/60 92 Room Air Intake & Output 07/22 1600 07/22 0800 07/22 0000 Intake Total 100 370 Output Total 300 300 Balance -200 70 Intake, IV 0 250 Intake, Oral 100 120 Number 0 Bowel Movements Output, Urine 300 300 Physical Exam General Appearance: Alert, Oriented X3, Cooperative, No Acute Distress HEENT: Atraumatic, PERRLA, EOMI, Mucous Membr. moist/pink Cardiovascular: Normal S1, Normal S2, No Murmurs, irregular Lungs: diminished air-entry over lung b/l Abdomen: Normal Bowel Sounds, Soft, No Tenderness Neurological: Normal Speech Extremities: No Clubbing, No Cyanosis, No Edema Current Medications: Current Medications Sig/Bill Start time Last Medication Dose Route Stop Time Status Admin Acetaminophen 650 MG Q8P PRN 07/20 183 AC PO Acetaminophen/ 1 TAB Q8P PRN 07/20 183 AC Hydrocodone Bitart PO Albuterol Sulfate 3 ML EVERY 4 HRS/AWAKE 07/21 08 AC 07/22 INH 0809 Azithromycin 500 MG AT BEDTIME 07/20 2330 AC 07/21 Sodium Chloride 250 ML IV 07/24 2259 2141 Benzonatate 100 MG BID 07/20 1830 AC 07/21 PO 2142 Bisacodyl 10 MG ONCE ONE 07/22 0815 DC HI 07/22 0816 Budesonide/ 2 PUF BID 07/20 2200 AC 07/21 Formoterol Fumarate INH 2142 Diltiazem HCl 240 MG DAILY 07/21 1000 AC 07/21 PO 1016 Docusate Sodium 100 MG BID 07/21 2200 AC 07/21 PO 2142 Docusate Sodium 100 MG QPM 07/20 2200 DC 07/20 PO 2227 Enoxaparin Sodium 40 MG DAILY 07/21 1000 AC SC Guaifenesin 10 ML .STK-MED ONE 07/21 1221 DC PO 07/21 1222 Guaifenesin 10 ML Q6P PRN 07/20 2330 AC 07/21 PO 1221 Insulin Aspart 0 TIDAC 07/21 0800 AC 07/21 SC 1224 Ipratropium [place] 2.5 ML EVERY 4 HRS/AWAKE 07/21 0800 AC 07/22 INH 0809 Lorazepam 1 MG QPM 07/20 2200 AC 07/21 PO 2142 Magnesium Hydroxide 30 ML ONE PRN 07/21 2030 AC 07/21 PO 2142 Meclizine HCl 12.5 MG BID 07/20 2200 AC 07/21 PO 2028 Methylprednisolone 40 MG Q8 07/20 2311 DC 07/21 Dextrose/Water 50 ML IV 0602 Morphine Sulfate 2 MG Q8P PRN 07/20 1830 AC IV Omeprazole 20 MG DAILY PRN 07/20 1830 AC PO Patient Medication 1 ED .STK-MED ONE 07/21 1358 DC Teaching ED 07/21 1359 Prednisone 40 MG ONCE ONE 07/22 1000 AC PO 07/22 1001 Senna 187 MG AT BEDTIME 07/21 0130 AC PO Sucralfate 1 GM DAILY 07/21 1000 AC 07/21 PO 0649 Assessment/Plan Assessment: Patient is a 76-year-old female with PMH of pulmonary hypertension, chronic COPD on home oxygen of 2.5L and chronic steroids 2.5mg daily who was sent to ED by Dr. Turner for a concern of progressive dyspnea, palpitation and pounding sensation in the abdomen. #Abdominal ultrasound impression: Limited evaluation of the aorta due to body habitus. Mild ectasia is seen onprior CT at the mid abdominal aorta, which is likely similar on the currentstudy. Size of the proximal aorta is unchanged. Bilateral renal cysts. No hydronephrosis. #Chest CT impression: 1. Increase in extensive emphysematous changes without evidence of an acute intrathoracic process or suspicious-appearing pulmonary nodules. 2. Indeterminate nodule retroareolar left breast. 3. Cholelithiasis without evidence of acute cholecystitis. 4. Multiple small left renal cysts are again noted Plan #Acute on chronic hypoxic respiratory failure most likely 2/2 COPD exacerbation Patient has a history of COPD. He is on home oxygen 2.5 L, prednisone 2.5 mg, and inhalers. Who presented complaining of shortness breath. WBCs was WNL. * We'll give 40 mg prednisone, we will taper down fast. * Continue TRC/nebulizers * Continue Symbicort * Continue guaifenesin * Supply oxygen as needed * Continue Azithromycin(day 3) #Acute worsening of intermittent palpitations in MAT patient Patient has history of multifocal atrial tachycardia on Cardizem 240 mg daily with 30 mg Cardizem when necessary for intermittent palpitations. She presented complaining of palpitation and pounding sensation in her abdomen. Had a history abdominal aorta aneurysm. Repeat abdominal ultrasound didn't show any acute changes. Acute coronary syndrome was ruled out. * Continue diltiazem CD 240 mg daily * We will start 30 mg diltiazem when necessary when patient complaining of palpitation. * We will follow cardiology recommendation #T2DM * Insulin sliding scale * Fingerstick #Anxiety: * Continue Lorazepam 1 mg at night #Constipation Patient did not have bowel movement for the last 3 days. She denies abdominal pain, nausea, or vomiting. Yesterday she received Colace 100 mg twice a day and milk of magnesia, however did have bowel movement yet. * we'll give Dulcolax suppository Heart healthy diet DVT prophylaxis SC Lovenox Full code Problem List: 1. COPD with acute exacerbation Pain Ratin Pain Location: na Pain Goal: Remain pain free Pain Plan: See A&P Tomorrow's Labs & Rationales: See A&P
[2016-07-22 08:25] VITALS: BP 122/68
--- NOTE | 2016-07-22 09:11 | PN- Pulmonary ---
Subjective HPI/Critical Care Issues: pt seen and examined afebrile 2.5LNC o2 doing well, returning to baseline Objective Current Medications: Current Medications Sig/Bill Start time Last Medication Dose Route Stop Time Status Admin Acetaminophen 650 MG Q8P PRN 07/20 1830 AC PO Acetaminophen/ 1 TAB Q8P PRN 07/20 1830 AC Hydrocodone Bitart PO Albuterol Sulfate 3 ML EVERY 4 HRS/AWAKE 07/21 0800 AC 07/22 INH 0809 Azithromycin 500 MG AT BEDTIME 07/20 2330 AC 07/21 Sodium Chloride 250 ML IV 07/24 2259 2141 Benzonatate 100 MG BID 07/20 1830 AC 07/21 PO 2142 Bisacodyl 10 MG ONCE ONE 07/22 0815 DC [place] 07/22 0816 Budesonide/ 2 PUF BID 07/20 220 AC 07/21 Formoterol Fumarate INH 214 Diltiazem HCl 240 MG DAILY 07/21 1000 AC 07/21 PO 1016 Docusate Sodium 100 MG BID 07/21 2200 AC 07/21 PO 2142 Docusate Sodium 100 MG QPM 07/20 2200 DC 07/20 PO 2227 Enoxaparin Sodium 40 MG DAILY 07/21 1000 AC SC Guaifenesin 10 ML .STK-MED ONE 07/21 1221 DC PO 07/21 1222 Guaifenesin 10 ML Q6P PRN 07/20 2330 AC 07/21 PO 1221 Insulin Aspart 0 TIDAC 07/21 0800 AC 07/21 SC 1224 Ipratropium [place] 2.5 ML EVERY 4 HRS/AWAKE 07/21 0800 AC 07/22 INH 0809 Lorazepam 1 MG QPM 07/20 2200 AC 07/21 PO 2142 Magnesium Hydroxide 30 ML ONE PRN 07/21 2030 AC 07/21 PO 2142 Meclizine HCl 12.5 MG BID 07/20 2200 AC 07/21 PO 2028 Methylprednisolone 40 MG Q8 07/20 2311 DC 07/21 Dextrose/Water 50 ML IV 0602 Morphine Sulfate 2 MG Q8P PRN 07/20 1830 AC IV Omeprazole 20 MG DAILY PRN 07/20 1830 AC PO Patient Medication 1 ED .STK-MED ONE 07/21 1358 DC Teaching ED 07/21 1359 Prednisone 40 MG ONCE ONE 07/22 1000 AC PO 07/22 1001 Senna 187 MG AT BEDTIME 07/21 0130 AC PO Sucralfate 1 GM DAILY 07/21 1000 AC 07/21 PO 0649 Vital Signs & I&O Last 24 Hrs of Vitals and I&O: Vital Signs Date Time Temp Pulse Resp B/P B/P Pulse O2 O2 Flow FiO2 Mean Ox Delivery Rate 07/22 0849 94 Nasal 2.5L Cannula 07/22 0826 94 Nasal 2.5L Cannula 07/22 0825 98.1 82 18 122/68 96 Nasal 2.0L Cannula 07/22 0001 98.0 83 18 108/64 96 Nasal Cannula 07/22 0000 Nasal 2.5L Cannula 07/21 1615 92 Nasal 2.5L Cannula 07/21 1600 Nasal 2.5L Cannula 07/21 1530 98.1 83 16 118/60 92 Room Air Intake & Output 07/22 1600 07/22 0800 07/22 0000 Intake Total 100 370 Output Total 300 300 Balance -200 70 Intake, IV 0 250 Intake, Oral 100 120 Number 0 Bowel Movements Output, Urine 300 300 Exam Other Physical Findings: gen awake and alert heent ncat cvs s1, s2 lungs rare rhonchi, prolonged end expiratory phase abd soft bs+ ext without edema Impression/Plan Impression/Plan Impression/Plan: Impression 76 year old woman * acute on chronic hypoxemic respiratory failure -aecopd * hx of MAT Plan -taper steroids rapidly - po prednisone 40mg today, and would taper to 2.5mg as quickly as clinical course allows -trc/nebs -can cont course of zithromax -cont symbicort with rinsing of the mouth -dc planning -o2 supplementation DVT prophylaxis at all times
[2016-07-22 15:30] VITALS: BP 112/68
--- NOTE | 2016-07-22 17:11 | PN- Cardiology ---
Subjective Subjective: Feels improved today and denies any recent palpitations. On telemetry rates have improved overall and there is been no evidence of MAT. Objective Vital Signs and I&Os Vital Signs Date Time Temp Pulse Resp B/P B/P Pulse O2 O2 Flow FiO2 Mean Ox Delivery Rate 07/22 1530 99.0 91 16 112/68 93 Nasal 2.5L Cannula 07/22 0849 94 Nasal 2.5L Cannula 07/22 0826 94 Nasal 2.5L Cannula 07/22 0825 98.1 82 18 122/68 96 Nasal 2.0L Cannula 07/22 0001 98.0 83 18 108/64 96 Nasal Cannula 07/22 0000 Nasal 2.5L Cannula Intake & Output 07/22 1600 07/22 0800 07/22 0000 07/21 1600 07/21 0807/21 0000 Intake Total 400 100 370 600 565 240 Output Total 600 300 300 300 200 750 Balance -200 -200 70 300 365 -510 Intake, IV 0 250 325 Intake, Oral 400 100 120 600 240 240 Number 0 0 0 Bowel Movements Output, Urine 600 300 300 300 200 750 Patient 132 lb Weight Weight Reported by Patient Measurement Method Physical Exam: Chronically ill-appearing elderly female in mild respiratory distress with nasal oxygen in place. Vital signs: See above. HEENT: Normocephalic, atraumatic, EOMI, slightly dry mucous membranes. Neck: No JVD, no bruits. Lungs: Decreased breath sounds bilaterally with occasional rhonchi and expiratory wheezes. Heart: S1, S2 with no murmur, gallop, or rub appreciated. PMI fifth ICS at MCL. Abdomen: Soft, nontender, positive bowel sounds. Extremities: No edema. Current Medications: Current Medications Sig/Bill Start time Last Medication Dose Route Stop Time Status Admin Acetaminophen 650 MG Q8P PRN 07/20 183 AC PO Acetaminophen/ 1 TAB Q8P PRN 07/20 183 AC Hydrocodone Bitart PO Albuterol Sulfate 3 ML EVERY 4 HRS/AWAKE 07/21 08 AC 07/22 INH 1615 Azithromycin 500 MG AT BEDTIME 07/20 2330 AC 07/21 Sodium Chloride 250 ML IV 07/24 2259 2141 Benzonatate 100 MG BID 07/20 183 AC 07/22 PO 1012 Bisacodyl 10 MG ONCE ONE 07/22 0815 DC 07/22 OR 07/22 0816 1015 Budesonide/ 2 PUF BID 07/20 2200 AC 07/22 Formoterol Fumarate INH 1016 Diltiazem HCl 240 MG DAILY 07/21 1000 AC 07/22 PO 1013 Docusate Sodium 100 MG BID 07/21 2200 AC 07/22 PO 1013 Enoxaparin Sodium 40 MG DAILY 07/21 1000 AC SC Guaifenesin 10 ML Q6P PRN 07/20 2330 AC 07/22 PO 1704 Insulin Aspart 0 TIDAC 07/21 0800 AC 07/22 SC 1703 Ipratropium [place] 2.5 ML EVERY 4 HRS/AWAKE 07/21 0800 AC 07/22 INH 1614 Lorazepam 1 MG QPM 07/20 2200 AC 07/21 PO 2142 Magnesium Hydroxide 30 ML ONE ONE 07/22 1415 DC 07/22 PO 07/22 1416 1430 Magnesium Hydroxide 30 ML ONE PRN 07/21 2030 AC 07/21 PO 2142 Meclizine HCl 12.5 MG BID 07/20 2200 AC 07/22 PO 1013 Morphine Sulfate 2 MG Q8P PRN 07/20 1830 AC IV Omeprazole 20 MG DAILY PRN 07/20 1830 AC PO Prednisone 40 MG ONCE ONE 07/22 1000 DC 07/22 PO 07/22 1001 1012 Senna 187 MG AT BEDTIME 07/21 0130 AC PO Sucralfate 1 GM DAILY 07/21 1000 AC 07/22 PO 1011 Results Last 48 Hrs of Labs/Mics: Laboratory Tests 07/21/16 0600: Anion Gap 7, Estimated GFR > 60, BUN/Creatinine Ratio 31.7 H 07/20/160: Troponin I < 0.01 Assessment/Plan Assessment/Plan [id number] w/ hx heavy tobacco use, oxygen (2.5 L) and steroid dependent ( prednisone 2.5 mg) COPD with frequent exacerbations, chronic hypercapnic respiratory failure, remote eosinophilic granuloma with resection of RUL, mild pulmonary HTN, KIKI, small AAA, mild concentric LVH, stage I diastolic dysfunction, HLD, palpitations with previously documented MAT and sinus tachycardia, who we are asked to evaluate and help manage in regard to her palpitations and shortness of breath. Palpitations and shortness of breath with an acute exacerbation of COPD in this steroid and oxygen dependent elderly female on beta 2 agonists for her COPD, as well as, stage I diastolic dysfunction, previous MAT, and intermittent sinus tachycardia, etc. Naturally, palpitations occur frequently in individuals on beta-2 adrenergic agonists secondary to sinus tachycardia (less than or equal to 7%). Various other supraventricular and ventricular arrhythmias have also been reported. Mrs. Chase is also at increased risk for MAT which she has experienced in the past. Interestingly, although she felt her heart racing at home and thinks she documented a heart rate of 150 bpm, her heart rate was only found to be between 91-106 bpm in the ED and is presently 92 bpm. She has remained in sinus rhythm with generally acceptableheart rates while she has been at rest. Would check heart rates while at rest and with low level exertion to determine whether or not we need to increase her Diltiazem. Recommendations: * Continue on telemetry. * Follow-up on pulmonary recommendations regarding oxygen, steroids, antibiotics , nebulizers, etc. * Continue on diltiazem CD 240 mg daily with "as needed" additional 30 mg of short acting diltiazem when she feels tachycardic, unless we find that her heart rates are consistently elevated, in which case would recommend increasing her diltiazem CD to 320 mg daily and continuing with the as needed short acting diltiazem 30 mg as needed. * Continue DVT prophylaxis. Continue telemetry? Yes
--- NOTE | 2016-07-22 17:16 | Patient Discharge Instructions ---
Discharge Instructions General Discharge Information You were seen/treated for: COPD exacerbation Special Instructions: Please follow-up with your primary care doctor within 1 week Please follow-up with your degreasing solution mixer within 1 week Please follow-up with your director advertising within 1 week please follow up as outpatient for Swallowing evaluation Diet Continue normal diet: Yes Recommended Diet: Heart Healthy Activity Full Activity/No Limits: Yes Activity Self Limited: Yes Acute Coronary Syndrome Inclusion Criteria At DC or during hospital stay patient has or had the following: ACS DIAGNOSIS No Discharge Core Measures Meds if any: Prescribed or Continued at Discharge Meds if any: NOT Prescribed or Continued at Discharge Congestive Heart Failure Inclusion Criteria At DC or during hospital stay patient has or had the following: CHF DIAGNOSIS No Discharge Core Measures Meds if any: Prescribed or Continued at Discharge Meds if any: NOT Prescribed or Continued at Discharge Cerebrovascular accident Inclusion Criteria At DC or during hospital stay patient has or had the following: CVA/TIA Diagnosis No Discharge Core Measures Meds if any: Prescribed or Continued at Discharge Meds if any: NOT Prescribed or Continued at Discharge Venous thromboembolism Inclusion Criteria VTE Diagnosis No VTE Type NONE VTE Confirmed by (Test) NONE Discharge Core Measures - Per Current guidelines, there needs to be overlap - treatment for the first 5 days of Warfarin therapy. - If discharged on Warfarin prior to 5 days of - overlap therapy, the patient will need to be - assessed for post discharge needs including - *Post discharge parental anticoagulation - *Warfarin and/or parental anticoagulation education - *Follow up date to check INR post discharge At least 5 days overlap therapy as Inpatient No Meds if any: Prescribed or Continued at Discharge Note: Overlap Therapy is Warfarin and Anticoagulant Meds if any: NOT Prescribed or Continued at Discharge
[2016-07-23 00:56] VITALS: BP 112/60
[2016-07-23 08:26] VITALS: BP 134/82
--- NOTE | 2016-07-23 10:12 | PN- Housestaff ---
Subjective Follow-up For: AECOPD Subjective: Patient is seen and examined while seated comfortably on a recliner right after a nebulizer therapy. She still endorses some wheezing but reports feeling better compared to previous days. She denies any increased shortness of breath, chest pain, palpitation, fever, chills. No acute overnight event reported by nursing staff Review of Systems Constitutional: Reports: see HPI. Objective Last 24 Hrs of Vital Signs/I&O Vital Signs Date Time Temp Pulse Resp B/P B/P Pulse O2 O2 Flow FiO2 Mean Ox Delivery Rate 07/23 1612 94 Nasal 2.5L Cannula 07/23 1553 98.4 88 93 134/73 18 Nasal 2.5L Cannula 07/23 0826 98.8 82 18 134/82 98 Nasal 2.5L Cannula 07/23 0816 95 Nasal 2.5L Cannula 07/23 0752 94 Nasal 2.5L Cannula 07/23 0056 98.2 86 18 112/60 92 Nasal Cannula 07/23 0000 94 Nasal 2.5L Cannula 07/22 1955 92 Nasal 2.5L Cannula Intake & Output 07/23 1600 07/23 0800 07/23 0000 Intake Total 200 850 Output Total Balance 200 850 Intake, IV 250 Intake, Oral 200 600 Number 3 Bowel Movements Physical Exam General Appearance: Alert, Oriented X3, Cooperative Other Physical Findings: HEENT: Atraumatic, PERRLA, EOMI, Mucous Membr. moist/pink Cardiovascular: Normal S1, Normal S2, No Murmurs, irregular Lungs: Very minimal wheezes bilaterally Abdomen: Normal Bowel Sounds, Soft, No Tenderness Neurological: Normal Speech Extremities: No Clubbing, No Cyanosis, No Edema Current Medications: Current Medications Sig/Bill Start time Last Medication Dose Route Stop Time Status Admin Acetaminophen 650 MG Q8P PRN 07/20 183 AC PO Acetaminophen/ 1 TAB Q8P PRN 07/20 183 AC Hydrocodone Bitart PO Albuterol Sulfate 3 ML EVERY 4 HRS/AWAKE 07/21 0807/23 INH 1559 Azithromycin 500 MG AT BEDTIME 07/20 2330 07/22 Sodium Chloride 250 ML IV 07/24 2259 2123 Benzonatate 100 MG BID 07/20 183 AC 07/23 PO 0916 Budesonide/ 2 PUF BID 07/20 2200 AC 07/23 Formoterol Fumarate INH 0917 Diltiazem HCl 240 MG DAILY 07/21 1000 AC 07/23 PO 0916 Docusate Sodium 100 MG BID 07/21 2200 AC 07/22 PO 1013 Enoxaparin Sodium 40 MG DAILY 07/21 1000 AC SC Guaifenesin 10 ML Q6P PRN 07/20 2330 AC 07/22 PO 1704 Insulin Aspart 0 TIDAC 07/21 0800 AC 07/23 SC 1645 Ipratropium [place] 2.5 ML EVERY 4 HRS/AWAKE 07/21 0800 AC 07/23 INH 1559 Lorazepam 1 MG QPM 07/20 2200 AC 07/23 PO 0002 Magnesium Hydroxide 30 ML ONE PRN 07/21 2030 AC 07/21 PO 2142 Meclizine HCl 12.5 MG BID 07/20 2200 AC 07/23 PO 0916 Morphine Sulfate 2 MG Q8P PRN 07/20 1830 AC IV Omeprazole 20 MG DAILY PRN 07/20 1830 AC PO Prednisone 30 MG ONCE ONE 07/23 1015 DC 07/23 PO 07/23 1016 1118 Senna 187 MG AT BEDTIME 07/21 0130 AC PO Sucralfate 1 GM DAILY 07/21 1000 AC 07/23 PO 0916 Assessment/Plan Assessment: Patient is a 76-year-old female with PMH of pulmonary hypertension, chronic COPD on home oxygen of 2.5L and chronic steroids 2.5mg daily who was sent to ED by Dr. Turner for a concern of progressive dyspnea, palpitation and pounding sensation in the abdomen. #Abdominal ultrasound impression: Limited evaluation of the aorta due to body habitus. Mild ectasia is seen onprior CT at the mid abdominal aorta, which is likely similar on the currentstudy. Size of the proximal aorta is unchanged. Bilateral renal cysts. No hydronephrosis. #Chest CT impression: 1. Increase in extensive emphysematous changes without evidence of an acute intrathoracic process or suspicious-appearing pulmonary nodules. 2. Indeterminate nodule retroareolar left breast. 3. Cholelithiasis without evidence of acute cholecystitis. 4. Multiple small left renal cysts are again noted Plan #Acute on chronic hypoxic respiratory failure most likely 2/2 COPD exacerbation Patient has a history of COPD. He is on home oxygen 2.5 L, prednisone 2.5 mg, and inhalers. Who presented complaining of shortness breath. WBCs was WNL. * We'll give 30mg prednisone, we will taper down fast. * Continue TRC/nebulizers * Continue Symbicort * Continue guaifenesin * Supply oxygen as needed * Continue Azithromycin(day 4) #Acute worsening of intermittent palpitations in MAT patient Patient has history of multifocal atrial tachycardia on Cardizem 240 mg daily with 30 mg Cardizem when necessary for intermittent palpitations. She presented complaining of palpitation and pounding sensation in her abdomen. Had a history abdominal aorta aneurysm. Repeat abdominal ultrasound didn't show any acute changes. Acute coronary syndrome was ruled out. * Continue diltiazem CD 240 mg daily * We will start 30 mg diltiazem when necessary when patient complaining of palpitation. * We will follow cardiology recommendation #T2DM * Insulin sliding scale * Fingerstick #Anxiety: * Continue Lorazepam 1 mg at night #Constipation Patient did not have bowel movement for the last 3 days. She denies abdominal pain, nausea, or vomiting. Yesterday she received Colace 100 mg twice a day and milk of magnesia, however did have bowel movement yet. * we'll give Dulcolax suppository Heart healthy diet DVT prophylaxis SC Lovenox Full code Problem List: 1. COPD with acute exacerbation Pain Ratin Pain Location: none Pain Goal: Remain pain free Pain Plan: per pain pathway Tomorrow's Labs & Rationales: BEP
--- NOTE | 2016-07-23 14:12 | PN- Cardiology ---
Subjective Subjective: The patient seems to be doing well today. Her breathing has improved. She denies any recurrent cardiac symptoms or palpitations. Objective Vital Signs and I&Os Vital Signs Date Time Temp Pulse Resp B/P B/P Pulse O2 O2 Flow FiO2 Mean Ox Delivery Rate 07/23 825 98.8 82 18 134/82 98 Nasal 2.5L Cannula 07/23 0816 95 Nasal 2.5L Cannula 07/23 0752 94 Nasal 2.5L Cannula 07/23 0056 98.2 86 18 112/60 92 Nasal Cannula 07/23 0000 94 Nasal 2.5L Cannula 07/22 1955 92 Nasal 2.5L Cannula 07/22 1721 94 Nasal 2.5L Cannula 07/22 1711 93 Nasal 2.5L Cannula 07/22 1530 99.0 91 16 112/68 93 Nasal 2.5L Cannula Intake & Output 07/23 1600 07/23 0800 07/23 0000 07/22 1600 07/22 0800 07/22 0000 Intake Total 200 850 400 100 370 Output Total 600 300 300 Balance 200 850 -200 -200 70 Intake, IV 250 0 250 Intake, Oral 200 600 400 100 120 Number 3 0 Bowel Movements Output, Urine 600 300 300 Physical Exam: General Appearance: Alert, Oriented X3, Cooperative, No Acute Distress HEENT: Atraumatic, PERRLA, EOMI, Mucous Membr. moist/pink Cardiovascular: Normal S1, Normal S2, No Murmurs Lungs: diminished air-entry bilaterally Abdomen: Normal Bowel Sounds, Soft, No Tenderness Neurological: Normal Speech Extremities: No Clubbing, No Cyanosis, No Edema Current Medications: Current Medications Sig/Bill Start time Last Medication Dose Route Stop Time Status Admin Acetaminophen 650 MG Q8P PRN 07/20 1830 AC PO Acetaminophen/ 1 TAB Q8P PRN 07/20 183 AC Hydrocodone Bitart PO Albuterol Sulfate 3 ML EVERY 4 HRS/AWAKE 07/21 0800 AC 07/23 INH 1214 Azithromycin 500 MG AT BEDTIME 07/20 2330 07/22 Sodium Chloride 250 ML IV 07/24 2259 2123 Benzonatate 100 MG BID 07/20 1830 AC 07/23 PO 0916 Budesonide/ 2 PUF BID 07/20 2200 AC 07/23 Formoterol Fumarate INH 0917 Diltiazem HCl 240 MG DAILY 07/21 1000 AC 07/23 PO 0916 Docusate Sodium 100 MG BID 07/21 2200 AC 07/22 PO 1013 Enoxaparin Sodium 40 MG DAILY 07/21 1000 AC SC Guaifenesin 10 ML .STK-MED ONE 07/22 1702 DC PO 07/22 1703 Guaifenesin 10 ML Q6P PRN 07/20 2330 AC 07/22 PO 1704 Insulin Aspart 0 TIDAC 07/21 0800 AC 07/22 SC 1703 Ipratropium [place] 2.5 ML EVERY 4 HRS/AWAKE 07/21 0800 AC 07/23 INH 1214 Lorazepam 1 MG QPM 07/20 2200 AC 07/23 PO 0002 Magnesium Hydroxide 30 ML ONE ONE 07/22 1415 DC 07/22 PO 07/22 1416 1430 Magnesium Hydroxide 30 ML ONE PRN 07/21 2030 AC 07/21 PO 2142 Meclizine HCl 12.5 MG BID 07/20 2200 AC 07/23 PO 0916 Morphine Sulfate 2 MG Q8P PRN 07/20 1830 AC IV Omeprazole 20 MG DAILY PRN 07/20 1830 AC PO Prednisone 30 MG ONCE ONE 07/23 1015 DC 07/23 PO 07/23 1016 1118 Senna 187 MG AT BEDTIME 07/21 0130 AC PO Sucralfate 1 GM DAILY 07/21 1000 AC 07/23 PO 0916 Assessment/Plan Assessment/Plan Assessment: 1. COPD exacerbation 2. History of palpitations with prior documentation of MAT 3. Small AAA 4. Hypertension Recommendations: -For now, continue current medical regimen. -Continue current Cardizem dose -Continue as per pulmonary, steroid taper as per Dr. Guan -Keep on telemetry for now. Continue telemetry? Yes
[2016-07-23 15:53] VITALS: BP 134/73
--- NOTE | 2016-07-23 17:08 | PN- Att Addend ---
Attending MD Review Statement Attending Statement Attending MD Statement: examined this patient, discuss w/resident/PA/LINK TRAINER MAINTENANCE WORKER, agreed w/resident/PA/LINK TRAINER MAINTENANCE WORKER, reviewed EMR data (avail), discussed w/nursing Attending Assessment/Plan: Vital Signs Date Time Temp Pulse Resp B/P B/P Pulse O2 O2 Flow FiO2 Mean Ox Delivery Rate 07/23 1612 94 Nasal 2.5L Cannula 07/23 1553 98.4 88 93 134/73 18 Nasal 2.5L Cannula 07/23 0826 98.8 82 18 134/82 98 Nasal 2.5L Cannula 07/23 0816 95 Nasal 2.5L Cannula 07/23 0752 94 Nasal 2.5L Cannula 07/23 0056 98.2 86 18 112/60 92 Nasal Cannula 07/23 0000 94 Nasal 2.5L Cannula 07/22 1955 92 Nasal 2.5L Cannula 07/22 1721 94 Nasal 2.5L Cannula 07/22 1711 93 Nasal 2.5L Cannula Patient seen and examined at bedside. Discussed with patient the care plan. Telemetry showing heart rate in ranges of 75-99 in normal sinus rhythm. We have decreased her prednisone to 30 mg by mouth for her COPD exacerbation. We will continue her on IV Zithromax for now. Patient does not tolerate by mouth Zithromax. Her last dose of Zithromax will be tomorrow on Monday.
[2016-07-24 01:10] VITALS: BP 130/76
[2016-07-24 08:04] LABS: ABSOLUTE BASOPHIL COUNT 0 /CUMM (0.0-0.2); ABSOLUTE EOSINOPHIL COUNT 0 /CUMM (0.0-0.7); ABSOLUTE GRANULOCYTE CT 6.8 /CUMM (1.4-6.5); ABSOLUTE LYMPH COUNT 2.1 /CUMM (1.2-3.4); ABSOLUTE MONOCYTE COUNT 0.6 /CUMM (0.10-0.60); BASOPHIL % 0.5 % (0.0-2.0); EOSINOPHIL % 0.1 % (0-5); GRANULOCYTE % 71.2 % (42.2-75.2); MEAN CORPUSCULAR HGB 26.7 PG (27.0-31.0); MEAN CORPUSCULAR HGB CONC 32.3 G/DL (33.0-37.0); MEAN CORPUSCULAR VOLUME 82.8 FL (81.0-99.0); MEAN PLATELET VOLUME 8.1 FL (7.4-10.4); PLATELET COUNT 242 /CUMM (130-400); RBC DISTRIBUTION WIDTH 15.6 % (11.5-14.5); RED BLOOD CELL CT 4.82 /CUMM (4.20-5.40); WHITE BLOOD CELL COUNT 9.5 /CUMM (4.8-10.8)
[2016-07-24 08:24] VITALS: BP 106/60
--- NOTE | 2016-07-24 09:28 | PN- Housestaff ---
Subjective Follow-up For: COPD exacerbation Bronchitis Tele-Events Since Last Visit: NSR, PACs Subjective: Patient seen and examined. Resting comfortably in bed with no complaints. She reports resolution of palpitations but still feels short of breath. Denies any headache, chest discomfort, palpitations, dypsnea, lightheadedness, dizziness, abdominal pain, n/v/c/d.No events reported overnight. Review of Systems Constitutional: Reports: see HPI. Objective Last 24 Hrs of Vital Signs/I&O Vital Signs Date Time Temp Pulse Resp B/P B/P Pulse O2 O2 Flow FiO2 Mean Ox Delivery Rate 07/24 1025 Nasal 2.5L Cannula 07/24 0824 98.3 73 22 106/60 95 Nasal 2.5L Cannula 07/24 0818 97 Nasal 2.5L Cannula 07/24 0110 97.9 82 18 130/76 94 Nasal Cannula 07/24 0000 Nasal 2.5L Cannula 07/23 1612 94 Nasal 2.5L Cannula 07/23 1559 95 Nasal 2.5L Cannula 07/23 1553 98.4 88 93 134/73 18 Nasal 2.5L Cannula Intake & Output 07/24 1600 07/24 0800 07/24 0000 Intake Total 340 Output Total Balance 340 Intake, IV 100 Intake, Oral 240 Physical Exam General Appearance: Alert, Oriented X3, Cooperative, No Acute Distress Other Physical Findings: HEENT: Atraumatic, PERRLA, EOMI, Mucous Membr. moist/pink Cardiovascular: Normal S1, Normal S2, No Murmurs, irregular Lungs: Very minimal wheezes bilaterally Abdomen: Normal Bowel Sounds, Soft, No Tenderness Neurological: Normal Speech Extremities: No Clubbing, No Cyanosis, No Edema Current Medications: Current Medications Sig/Bill Start time Last Medication Dose Route Stop Time Status Admin Acetaminophen 650 MG Q8P PRN 07/20 1830 AC PO Acetaminophen/ 1 TAB Q8P PRN 07/20 183 AC Hydrocodone Bitart PO Albuterol Sulfate 3 ML EVERY 4 HRS/AWAKE 07/21 0807/24 INH 1242 Azithromycin 500 MG AT BEDTIME 07/20 2330 07/22 Sodium Chloride 250 ML IV 07/24 2259 2123 Benzonatate 100 MG BID 07/20 183 AC 07/24 PO 0938 Budesonide/ 2 PUF BID 07/20 2200 AC 07/24 Formoterol Fumarate INH 0836 Diltiazem HCl 240 MG DAILY 07/21 1000 AC 07/24 PO 0835 Docusate Sodium 100 MG BID 07/21 2200 AC 07/24 PO 0835 Enoxaparin Sodium 40 MG DAILY 07/21 1000 AC SC Guaifenesin 10 ML Q6P PRN 07/20 2330 AC 07/22 PO 1704 Insulin Aspart 0 TIDAC 07/21 0800 AC 07/23 SC 1645 Ipratropium Evangeline 2.5 ML EVERY 4 HRS/AWAKE 07/21 0800 AC 07/24 INH 1242 Lorazepam 1 MG QPM 07/20 2200 AC 07/23 PO 0002 Magnesium Hydroxide 30 ML ONE PRN 07/21 2030 AC 07/21 PO 2142 Meclizine HCl 12.5 MG BID 07/20 2200 AC 07/24 PO 0804 Morphine Sulfate 2 MG Q8P PRN 07/20 1830 AC IV Omeprazole 20 MG DAILY PRN 07/20 1830 AC PO Prednisone 10 MG ONCE ONE 07/25 0900 AC PO 07/25 0901 Prednisone 20 MG ONCE ONE 07/24 0900 DC 07/24 PO 07/24 0901 1104 Senna 187 MG AT BEDTIME 07/21 0130 AC PO Sucralfate 1 GM DAILY 07/21 1000 AC 07/24 PO 0834 Last 24 Hrs of Lab/Eduardo Results Last 24 Hrs of Labs/Mics: Laboratory Tests 07/24/16 0600: Anion Gap 8, Estimated GFR > 60, BUN/Creatinine Ratio 33.3 H, CBC w Diff NO MAN DIFF REQ, RBC 4.82, MCV 82.8, MCH 26.7 L, RDW 15.6 H, MPV 8.1, Gran % 71.2, Lymphocytes % 21.8, Monocytes % 6.4, Eosinophils % 0.1, Basophils % 0.5, Absolute Granulocytes 6.8 H, Absolute Lymphocytes 2.1, Absolute Monocytes 0.6, Absolute Eosinophils 0, Absolute Basophils 0, PUBS MCHC 32.3 L Assessment/Plan Assessment: Patient is a 76-year-old female with PMH of pulmonary hypertension, chronic COPD on home oxygen of 2.5L and chronic steroids 2.5mg daily who was sent to ED by Dr. Turner for a concern of progressive dyspnea, palpitation and pounding sensation in the abdomen. #Acute on chronic hypoxic respiratory failure most likely 2/2 COPD exacerbation Patient has a history of COPD. She is on home oxygen 2.5 L. Required 3 liters of oxygen to maintain O2 sat above 92%. She is also on prednisone 2.5 mg, and uses inhalers at home. No leukocytosis. * Cont steroid taper - 20mg today * Continue TRC/nebulizers * Continue Symbicort * Continue guaifenesin * Supply oxygen as needed * Continue Azithromycin - day 5 #Acute worsening of intermittent palpitations in MAT patient Patient has history of multifocal atrial tachycardia on Cardizem 240 mg daily with 30 mg Cardizem when necessary for intermittent palpitations. She presented complaining of palpitation and pounding sensation in her abdomen. Had a history abdominal aorta aneurysm. Repeat abdominal ultrasound didn't show any acute changes. Acute coronary syndrome was ruled out. * Continue diltiazem CD 240 mg daily * May give 30 mg diltiazem when necessary for palpitation. * Follow cardiology recommendations #T2DM * Insulin sliding scale * Fingerstick #Anxiety: * Continue Lorazepam 1 mg at night #Constipation Patient did not have bowel movement for the last 3 days. She denies abdominal pain, nausea, or vomiting. Yesterday she received Colace 100 mg twice a day and milk of magnesia, however did have bowel movement yet. * we'll give Dulcolax suppository Heart healthy diet DVT prophylaxis SC Lovenox Full code Problem List: 1. COPD EXACERBATION 2. Pneumonia 3. Respiratory distress 4. Dyspnea 5. Diastolic congestive heart failure 6. DVT prophylaxis Pain Ratin Pain Location: 0 Pain Goal: Remain pain free Pain Plan: Mild pathway Tomorrow's Labs & Rationales: CBC BEP
[2016-07-24 09:56] LABS: HEMATOCRIT 39.9 % (37-47)
--- NOTE | 2016-07-24 13:22 | PN- Att Addend ---
Attending MD Review Statement Attending Statement Attending MD Statement: examined this patient, discuss w/resident/PA/BINDERY TECHNICIAN, agreed w/resident/PA/BINDERY TECHNICIAN, reviewed EMR data (avail), discussed w/nursing Attending Assessment/Plan: Laboratory Tests 07/24/16 0600: Anion Gap 8, Estimated GFR > 60, BUN/Creatinine Ratio 33.3 H, CBC w Diff NO MAN DIFF REQ, RBC 4.82, MCV 82.8, MCH 26.7 L, RDW 15.6 H, MPV 8.1, Gran % 71.2, Lymphocytes % 21.8, Monocytes % 6.4, Eosinophils % 0.1, Basophils % 0.5, Absolute Granulocytes 6.8 H, Absolute Lymphocytes 2.1, Absolute Monocytes 0.6, Absolute Eosinophils 0, Absolute Basophils 0, PUBS MCHC 32.3 L Vital Signs Date Time Temp Pulse Resp B/P B/P Pulse O2 O2 Flow FiO2 Mean Ox Delivery Rate 07/24 1025 Nasal 2.5L Cannula 07/24 0824 98.3 73 22 106/60 95 Nasal 2.5L Cannula 07/24 0818 97 Nasal 2.5L Cannula 07/24 0110 97.9 82 18 130/76 94 Nasal Cannula 07/24 0000 Nasal 2.5L Cannula 07/23 1612 94 Nasal 2.5L Cannula 07/23 1559 95 Nasal 2.5L Cannula 07/23 1553 98.4 88 93 134/73 18 Nasal 2.5L Cannula Patient seen and examined at bedside. Discussed with patient the care plan. Telemetry showing heart rate in ranges of 70-85 in normal sinus rhythm. We have decreased her prednisone to 20 mg by mouth for her COPD exacerbation. We will continue her on IV Zithromax for now. Patient does not tolerate by mouth Zithromax. Her last dose of Zithromax will be today on Monday.
[2016-07-24 15:51] VITALS: BP 114/60
[2016-07-24 22:31] VITALS: BP 124/70
--- NOTE | 2016-07-25 08:24 | PN- Housestaff ---
Subjective Follow-up For: 1. Acute exacerbation of COPD 2. Acute on chronic hypoxemic respiratory failure 3. Dyspnea on exertion 4. Pulmonary hypertension 5. Chronic steroid use 6. Generalized weakness 7. Chronic palpitation Tele-Events Since Last Visit: Normal sinus rhythm, heart rate 69-83, BBB, PACs, PVCs Subjective: Afebrile, BP WNL, and saturating well on 2.5 L of oxygen(home baseline). Patient reports improvement on her palpitation and shortness breath. She denies any current active complaints. Review of Systems Constitutional: Reports: no symptoms. Objective Last 24 Hrs of Vital Signs/I&O Vital Signs Date Time Temp Pulse Resp B/P B/P Pulse O2 O2 Flow FiO2 Mean Ox Delivery Rate 07/25 0857 96 Nasal 2.5L Cannula 07/25 0837 98.4 90 22 124/52 96 Nasal 2.5L Cannula 07/25 0800 95 Nasal 2.5L Cannula 07/25 0000 Nasal 2.5L Cannula 07/24 2231 97.0 86 22 124/70 96 Nasal 2.5L Cannula 07/24 2217 95 Nasal 2.5L Cannula 07/24 1624 95 Nasal 2.5L Cannula 07/24 1611 94 Nasal 2.5L Cannula 07/24 1551 98.2 88 20 114/60 95 Intake & Output 07/25 1600 07/25 0800 07/25 0000 Intake Total 240 480 Output Total Balance 240 480 Intake, Oral 240 480 Patient 59.874 kg Weight Physical Exam General Appearance: Alert, Oriented X3, Cooperative, No Acute Distress HEENT: Atraumatic, PERRLA, EOMI, Mucous Membr. moist/pink Neck: No JVD Cardiovascular: Regular Rate, Normal S1, Normal S2, No Murmurs Lungs: diminished air entry over lung bilaterally with mild wheezing on the left side Abdomen: Soft, No Tenderness Neurological: Normal Speech Extremities: No Clubbing, No Cyanosis, No Edema Current Medications: Current Medications Sig/Bill Start time Last Medication Dose Route Stop Time Status Admin Acetaminophen 650 MG Q8P PRN 07/20 1829 AC PO Acetaminophen/ 1 TAB Q8P PRN 07/20 1829 AC Hydrocodone Bitart PO Albuterol Sulfate 3 ML EVERY 4 HRS/AWAKE 07/21 0800 AC 07/25 INH 1325 Azithromycin 500 MG AT BEDTIME 07/20 2330 DC 07/24 Sodium Chloride 250 ML IV 07/24 2259 2151 Benzonatate 100 MG BID 07/20 1830 AC 07/24 PO 0938 Budesonide/ 2 PUF BID 07/20 2200 AC 07/25 Formoterol Fumarate INH 0815 Diltiazem HCl 240 MG DAILY 07/21 1000 AC 07/25 PO 0814 Docusate Sodium 100 MG BID 07/21 2200 AC 07/25 PO 0814 Enoxaparin Sodium 40 MG DAILY 07/21 1000 AC SC Guaifenesin 10 ML Q6P PRN 07/20 2330 AC 07/22 PO 1704 Insulin Aspart 0 TIDAC 07/21 0800 AC 07/24 SC 1657 Ipratropium Roberta 2.5 ML EVERY 4 HRS/AWAKE 07/21 0800 AC 07/25 INH 1325 Lorazepam 1 MG QPM 07/20 2200 AC 07/24 PO 2152 Magnesium Hydroxide 30 ML ONE PRN 07/21 2030 AC 07/21 PO 2142 Meclizine HCl 12.5 MG BID 07/20 2200 AC 07/24 PO 2038 Morphine Sulfate 2 MG Q8P PRN 07/20 1830 AC IV Omeprazole 20 MG DAILY PRN 07/20 1830 AC PO Prednisone 5 MG ONCE ONE 07/26 1000 AC PO 07/26 1001 Prednisone 10 MG ONCE ONE 07/25 0900 DC 07/25 PO 07/25 0901 0814 Senna 187 MG AT BEDTIME 07/21 0130 AC PO Sucralfate 1 GM DAILY 07/21 1000 AC 07/25 PO 0814 Assessment/Plan Assessment: Patient is a 76-year-old female with PMH of pulmonary hypertension, chronic COPD on home oxygen of 2.5L and chronic steroids 2.5mg daily who was sent to ED by Dr. Turner for a concern of progressive dyspnea, palpitation and pounding sensation in the abdomen. #Acute on chronic hypoxic respiratory failure most likely 2/2 COPD exacerbation Patient has a history of COPD. She is now on 2.5 L (at baseline). She is also on prednisone 2.5 mg, and uses inhalers at home. No leukocytosis. * Cont steroid taper 10 mg today, 5 mg tomorrow, and then back to 2.5 mg a baseline * Continue TRC/nebulizers * Continue Symbicort * Continue guaifenesin * Supply oxygen as needed * DC antibiotic #Acute worsening of intermittent palpitations in MAT patient Patient has history of multifocal atrial tachycardia on Cardizem 240 mg daily with 30 mg Cardizem when necessary for intermittent palpitations. She presented complaining of palpitation and pounding sensation in her abdomen. Had a history abdominal aorta aneurysm. Repeat abdominal ultrasound didn't show any acute changes. Acute coronary syndrome was ruled out. * Continue diltiazem CD 240 mg daily * May give 30 mg diltiazem when necessary for palpitation. * Follow cardiology recommendations #T2DM * Insulin sliding scale * Fingerstick #Anxiety: * Continue Lorazepam 1 mg at night #Swallowing evaluation Patient complained that she have problems swallowing water, swallowing eval was placed and they recommended regular diet consistency with nectar liquid. Patient denies doing modified barium swallow at the hospital as she would like to do as an outpatient. Heart healthy diet nectar liquid DVT prophylaxis SC Lovenox Full code Problem List: 1. COPD EXACERBATION Pain Ratin Pain Location: na Pain Goal: Remain pain free Pain Plan: See A&P Tomorrow's Labs & Rationales: No lab needed
[2016-07-25 08:37] VITALS: BP 124/52
--- NOTE | 2016-07-25 14:08 | PN- Cardiology ---
Subjective Subjective: The patient is doing well and remains stable from a cardiac standpoint. Respiratory status improving. Objective Vital Signs and I&Os Vital Signs Date Time Temp Pulse Resp B/P B/P Pulse O2 O2 Flow FiO2 Mean Ox Delivery Rate 07/25 0857 96 Nasal 2.5L Cannula 07/25 0837 98.4 90 22 124/52 96 Nasal 2.5L Cannula 07/25 0800 95 Nasal 2.5L Cannula 07/25 0000 Nasal 2.5L Cannula 07/24 2231 97.0 86 22 124/70 96 Nasal 2.5L Cannula 07/24 2217 95 Nasal 2.5L Cannula 07/24 1624 95 Nasal 2.5L Cannula 07/24 1611 94 Nasal 2.5L Cannula 07/24 1551 98.2 88 20 114/60 95 Intake & Output 07/25 1600 07/25 0800 07/25 0000 07/24 1600 07/24 0807/24 0000 Intake Total 240 480 400 340 Output Total 600 Balance 240 480 -200 340 Intake, IV 100 Intake, Oral 240 480 400 240 Output, Urine 600 Patient 132 lb Weight Current Medications: Current Medications Sig/Bill Start time Last Medication Dose Route Stop Time Status Admin Acetaminophen 650 MG Q8P PRN 07/20 1830 AC PO Acetaminophen/ 1 TAB Q8P PRN 07/20 183 AC Hydrocodone Bitart PO Albuterol Sulfate 3 ML EVERY 4 HRS/AWAKE 07/21 08 AC 07/25 INH 1325 Azithromycin 500 MG AT BEDTIME 07/20 2330 DC 07/24 Sodium Chloride 250 ML IV 07/24 2259 2151 Benzonatate 100 MG BID 07/20 1830 AC 07/24 PO 0938 Budesonide/ 2 PUF BID 07/20 2200 AC 07/25 Formoterol Fumarate INH 0815 Diltiazem HCl 240 MG DAILY 07/21 1000 AC 07/25 PO 0814 Docusate Sodium 100 MG BID 07/21 2200 AC 07/25 PO 0814 Enoxaparin Sodium 40 MG DAILY 07/21 1000 AC SC Guaifenesin 10 ML Q6P PRN 07/20 2330 AC 07/22 PO 1704 Insulin Aspart 0 TIDAC 07/21 0800 AC 07/24 SC 1657 Ipratropium Onyx 2.5 ML EVERY 4 HRS/AWAKE 07/21 08 AC 07/25 INH 1325 Lorazepam 1 MG QPM 07/20 220 AC 07/24 PO 215 Magnesium Hydroxide 30 ML ONE PRN 07/21 2030 AC 07/21 PO 214 Meclizine HCl 12.5 MG BID 07/20 2199 AC 07/24 PO 2038 Morphine Sulfate 2 MG Q8P PRN 07/20 1830 AC IV Omeprazole 20 MG DAILY PRN 07/20 1830 AC PO Prednisone 5 MG ONCE ONE 07/26 1000 AC PO 07/26 1001 Prednisone 10 MG ONCE ONE 07/25 0900 DC 07/25 PO 07/25 0901 0814 Senna 187 MG AT BEDTIME 07/21 0130 AC PO Sucralfate 1 GM DAILY 07/21 1000 AC 07/25 PO 0814 Results Last 48 Hrs of Labs/Mics: Laboratory Tests 07/24/16 0600: Anion Gap 8, Estimated GFR > 60, BUN/Creatinine Ratio 33.3 H, CBC w Diff NO MAN DIFF REQ, RBC 4.82, MCV 82.8, MCH 26.7 L, RDW 15.6 H, MPV 8.1, Gran % 71.2, Lymphocytes % 21.8, Monocytes % 6.4, Eosinophils % 0.1, Basophils % 0.5, Absolute Granulocytes 6.8 H, Absolute Lymphocytes 2.1, Absolute Monocytes 0.6, Absolute Eosinophils 0, Absolute Basophils 0, PUBS MCHC 32.3 L Assessment/Plan Assessment/Plan Assessment: 1. COPD exacerbation 2. History of palpitations with prior documentation of MAT 3. Small AAA 4. Hypertension Recommendations: -For now, continue current medical regimen. -Continue current Cardizem dose -Continue as per pulmonary, steroid taper as per Dr. Guan -Keep on telemetry for now. Continue telemetry? Yes
--- NOTE | 2016-07-25 14:45 | PN- Att Addend ---
Attending MD Review Statement Attending Statement Attending MD Statement: examined this patient, discuss w/resident/PA/SKIDDER LOADER, agreed w/resident/PA/SKIDDER LOADER, reviewed EMR data (avail), discussed w/nursing Attending Assessment/Plan: Vital Signs Date Time Temp Pulse Resp B/P B/P Pulse O2 O2 Flow FiO2 Mean Ox Delivery Rate 07/25 0857 96 Nasal 2.5L Cannula 07/25 0837 98.4 90 22 124/52 96 Nasal 2.5L Cannula 07/25 0800 95 Nasal 2.5L Cannula 07/25 0000 Nasal 2.5L Cannula 07/24 2231 97.0 86 22 124/70 96 Nasal 2.5L Cannula 07/24 2217 95 Nasal 2.5L Cannula 07/24 1624 95 Nasal 2.5L Cannula 07/24 1611 94 Nasal 2.5L Cannula 07/24 1551 98.2 88 20 114/60 95 Patient seen and examined at bedside. Discussed with patient the care plan. Telemetry showing heart rate in ranges of 70-90 in normal sinus rhythm. We have decreased her prednisone to 10 mg by mouth for her COPD exacerbation. Patient does not tolerate by mouth Zithromax and got her last dose of Zithromax on Monday. Pt will be dced tomorrow and will get 5mg prednisone tomorrow morning. PT to see tomorrow for dizziness again- pt felt better after PT did some maneouvers for her dizziness.
[2016-07-25 15:54] VITALS: BP 104/54
[2016-07-25 22:30] VITALS: BP 92/50
--- NOTE | 2016-07-26 07:49 | PN- Housestaff ---
See Addendum Subjective Follow-up For: 1. Acute exacerbation of COPD 2. Acute on chronic hypoxemic respiratory failure 3. Dyspnea on exertion 4. Pulmonary hypertension 5. Chronic steroid use 6. Generalized weakness 7. Chronic palpitation Tele-Events Since Last Visit: NSR, heart rate 64-70s, with no overnight events Subjective: Stable. Saturating well on 2.5 L of oxygen(home baseline). She denies any current active complaints. Review of Systems Constitutional: Reports: no symptoms. Objective Last 24 Hrs of Vital Signs/I&O Vital Signs Date Time Temp Pulse Resp B/P B/P Pulse O2 O2 Flow FiO2 Mean Ox Delivery Rate 07/26 0818 97.0 72 18 124/76 98 Nasal 2.5L Cannula 07/26 0723 98 Nasal 2.0L Cannula 07/26 0000 Nasal 2.5L Cannula 07/25 2230 98.4 72 20 92/50 94 Nasal Cannula 07/25 1720 95 Nasal 2.5L Cannula 07/25 1600 94 Nasal 2.5L Cannula 07/25 1554 98.5 74 22 104/54 94 Nasal 2.5L Cannula Intake & Output 07/26 1600 07/26 0800 07/26 0000 Intake Total 360 Output Total Balance 360 Intake, Oral 360 Physical Exam General Appearance: Alert, Oriented X3, Cooperative, No Acute Distress HEENT: Atraumatic, PERRLA, EOMI, Mucous Membr. moist/pink Cardiovascular: Regular Rate, Normal S1, Normal S2, No Murmurs Lungs: diminished air-entry over lung b/l Abdomen: Soft, No Tenderness Neurological: Normal Speech Extremities: No Clubbing, No Cyanosis, No Edema Current Medications: Current Medications Sig/Bill Start time Last Medication Dose Route Stop Time Status Admin Acetaminophen 650 MG Q8P PRN 07/20 1829 AC PO Acetaminophen/ 1 TAB Q8P PRN 07/20 1829 AC Hydrocodone Bitart PO Albuterol Sulfate 3 ML EVERY 4 HRS/AWAKE 07/21 08 AC 07/26 INH 0722 Benzonatate 100 MG BID 07/20 183 AC 07/24 PO 0938 Budesonide/ 2 PUF BID 07/20 2199 AC 07/26 Formoterol Fumarate INH 0854 Diltiazem HCl 240 MG DAILY 07/21 1000 AC 07/26 PO 0851 Docusate Sodium 100 MG BID 07/21 2199 AC 07/26 PO 0851 Enoxaparin Sodium 40 MG DAILY 07/21 1000 AC SC Guaifenesin 10 ML .STK-MED ONE 07/26 2103 DC PO 07/25 210 Guaifenesin 10 ML Q6P PRN 07/20 2330 AC 07/25 PO 2103 Insulin Aspart 0 TIDAC 07/21 0800 AC 07/24 SC 1657 Ipratropium Crestone 2.5 ML EVERY 4 HRS/AWAKE 07/21 0800 AC 07/26 INH 0722 Lorazepam 1 MG QPM 07/20 2200 AC 07/25 PO 205 Magnesium Hydroxide 30 ML ONE PRN 07/21 2030 AC 07/21 PO 214 Meclizine HCl 12.5 MG BID 07/20 220 AC 07/24 PO 2038 Morphine Sulfate 2 MG Q8P PRN 07/20 1830 AC IV Omeprazole 20 MG DAILY PRN 07/20 1830 AC PO Prednisone 5 MG ONCE ONE 07/26 1000 AC 07/26 PO 07/26 1001 0852 Senna 187 MG AT BEDTIME 07/21 0130 AC PO Sucralfate 1 GM DAILY 07/21 1000 AC 07/26 PO 0850 Assessment/Plan Assessment: Patient is a 76-year-old female with PMH of pulmonary hypertension, chronic COPD on home oxygen of 2.5L and chronic steroids 2.5mg daily who was sent to ED by Dr. Turner for a concern of progressive dyspnea, palpitation and pounding sensation in the abdomen. #Acute on chronic hypoxic respiratory failure most likely 2/2 COPD exacerbation Patient has a history of COPD. She is now on 2.5 L (at baseline). She is also on prednisone 2.5 mg, and uses inhalers at home. No leukocytosis. Patient finished a five-day course of IV azithromycin. Patient was on prednisone taper. * Will receive 5 mg of prednisone today, then back to 2.5 mg a baseline starting tomorrow * Continue TRC/nebulizers * Continue Symbicort * Continue guaifenesin * Supply oxygen as needed #Acute worsening of intermittent palpitations in MAT patient Patient has history of multifocal atrial tachycardia on Cardizem 240 mg daily with 30 mg Cardizem when necessary for intermittent palpitations. She presented complaining of palpitation and pounding sensation in her abdomen. Had a history abdominal aorta aneurysm. Repeat abdominal ultrasound didn't show any acute changes. Acute coronary syndrome was ruled out. * Continue diltiazem CD 240 mg daily * May give 30 mg diltiazem when necessary for palpitation. * Follow cardiology recommendations #T2DM * Insulin sliding scale * Fingerstick #Anxiety: * Continue Lorazepam 1 mg at night #Swallowing evaluation Patient complained that she have problems swallowing water, swallowing eval was placed and they recommended regular diet consistency with nectar liquid. Patient denies modified barium swallow at the hospital as she would like to do as an outpatient. Heart healthy diet nectar liquid DVT prophylaxis SC Lovenox(refused her lovenox this AM) Full code Problem List: 1. COPD EXACERBATION Pain Ratin Pain Location: NA Pain Goal: Remain pain free Pain Plan: See A&P Tomorrow's Labs & Rationales: none
[2016-07-26 08:18] VITALS: BP 124/76
--- NOTE | 2016-07-26 09:53 | Discharge Summary ---
Visit Information Visit Dates Admission Date: 07/20/16 Discharge Date: 07/26/16 Hospital Course Course Attending Physician: KELLIE CROCKER MD [facility]: Patient is a 76-year-old female with PMH of pulmonary hypertension, chronic COPD on home oxygen of 2.5L and chronic steroids 2.5mg daily who was sent to ED by Dr. Turner for a concern of progressive dyspnea, palpitation and pounding sensation in the abdomen. #Acute on chronic hypoxic respiratory failure most likely 2/2 COPD exacerbation Patient has a history of COPD. On discharge she was on 2.5 L (at baseline). She is also on prednisone 2.5 mg, and uses inhalers at home. No leukocytosis. Patient finished a five-day course of IV azithromycin. Patient was on prednisone taper. she was discharged on 2.5 mg prednisone #Acute worsening of intermittent palpitations in MAT patient Patient has history of multifocal atrial tachycardia on Cardizem 240 mg daily with 30 mg Cardizem when necessary for intermittent palpitations. She presented complaining of palpitation and pounding sensation in her abdomen. Had a history abdominal aorta aneurysm. Repeat abdominal ultrasound didn't show any acute changes. Acute coronary syndrome was ruled out. We continued diltiazem CD 240 mg daily and 30 mg diltiazem when necessary for palpitation. Instructed to Follow with cardiology as an outpatient #Anxiety: * We continue Lorazepam 1 mg at night #Swallowing evaluation Patient complained that she have problems swallowing water, swallowing eval was placed and they recommended regular diet consistency with nectar liquid. Patient denies modified barium swallow at the hospital as she would like to do as an outpatient. She was given perception for that. Allergies: Coded Allergies: Iodinated Contrast- Oral and IV Dye (IODINATED CONTRAST MEDIA - IV DYE) ( Intermediate, HIVES, RASH 04/27/15) Penicillins (Intermediate, HIVES 04/27/15) Sulfa (Sulfonamide Antibiotics) (Intermediate, HIVES 04/27/15) methylprednisolone (Mild, "TOO MANY SIDE EFFECTS, HIGH SUGAR, LOOSE TEETH, NECK BONES" 04/27/15) Pertinent Lab Results: SERVICE DATE: 07/20/16- EXAM TYPE: CAT - CT CHEST WO IV CONTRAST EXAMINATION: CT CHEST WITHOUT CONTRAST CLINICAL INFORMATION: Dyspnea on exertion with increasing oxygen requirements. COMPARISON: 07/12/2011 TECHNIQUE: Multidetector volumetric CT imaging of the chest was done. Axial MIP volume rendering provided. Sagittal and coronal reformatted images were obtained. DLP: 190 mGy-cm. FINDINGS: BRANCH ASSISTANT: The lungs remain hyperexpanded with upper lobe emphysematous changes again noted. LUNGS: There are extensive destructive bullous emphysematous changes most notably in the upper lobes and lingula on the left side with shift of the mediastinum towards the right. These have increased compared with the previous exam. There is a staple line identified in the periphery of the right upper lobe laterally consistent with previous wedge resection. Under 5 mm micronodules along the major fissures bilaterally are likely small lymph nodes. There are no suspicious-appearing pulmonary nodules identified. Mild diffuse ground-glass opacity throughout the more normal-appearing areas of the lower lobes is likely related to vessel and interstitial crowding due to compression from the extensive emphysematous changes predominately in the upper lobes. MEDIASTINUM: There is no evidence of mediastinal, hilar or lower cervical lymphadenopathy. Thyroid gland appears unremarkable. There are mild atherosclerotic changes. PLEURA: There is no pleural effusion. No pleural mass or thickening. AXILLA: There is no axillary or internal mammary adenopathy. There is asymmetry in the retroareolar left breast for which mammography is recommended to further evaluate if not recently performed. Finding has increased compared with the previous exam. UPPER ABDOMEN: There are 2 small calcified gallstones identified dependently in the gallbladder largely unchanged. Multiple small left renal cysts one of which is hyperdense and unchanged compared with the CT dated 09/09/2013. OSSEOUS STRUCTURES: No aggressive-appearing osseous lesions are seen. IMPRESSION: 1. Increase in extensive emphysematous changes without evidence of an acute intrathoracic process or suspicious-appearing pulmonary nodules. 2. Indeterminate nodule retroareolar left breast. 3. Cholelithiasis without evidence of acute cholecystitis. 4. Multiple small left renal cysts are again noted. DICTATED BY: CARROLL BOCANEGRA MD DATE/TIME DICTATED:07/20/161300 REHABILITATION THERAPY TECHNICIAN:LEE DATE/TIME TRANSCRIBED:07/20/161300 CONFIDENTIAL, DO NOT COPY WITHOUT APPROPRIATE AUTHORIZATION. SERVICE DATE: 07/20/16 EXAM TYPE: US - US-AORTA EXAMINATION: US RETROPERITONEAL LIMITED (AORTA) CLINICAL INFORMATION: Abdominal pain radiating to the back. Evaluate for dissection.. Smoking history. COMPARISON: Ultrasound from 08/05/2012. CT performed 09/09/2013. TECHNIQUE: Grayscale, color Doppler and spectral Doppler evaluation of the abdominal aorta. Both kidneys are also evaluated. FINDINGS: Limited evaluation of the aorta due to body habitus. The measurements of the aorta in maximum AP and transverse dimensions respectively are as follows: Proximal: 2.4 x 2.6 cm. (Previously 2.4 x 2.7 cm). Mid: 2.3 x 2.7 cm. (Not previously visualized on ultrasound). This is fairly similar to prior CT given differences in technique. Distal: Not visualized. The measurements of the common iliac arteries in maximum AP dimension are as follows: Right Common Iliac Artery: Not visualized Left Common Iliac Artery: Not visualized Both kidneys are seen and evaluated. No hydronephrosis. There is a right lower pole simple cyst measuring 1.1 cm. The right kidney measures 10.3 cm in long axis dimension. Left kidney measures 11.3 cm in long axis dimension. There are multiple left renal cysts. Upper pole simple cyst measures 3 cm. Adjacent upper pole simple cyst measures 2.8 cm. Exophytic midpole simple cyst measures 4.8 cm in maximum dimension. Exophytic lower pole cyst measures 1.9 cm. There is also a focus of increased echogenicity at the lower pole measuring 1.2 cm. This has the appearance of calcification. IMPRESSION: Limited evaluation of the aorta due to body habitus. Mild ectasia is seen on prior CT at the mid abdominal aorta, which is likely similar on the current study. Size of the proximal aorta is unchanged. Bilateral renal cysts. No hydronephrosis. DICTATED BY: LORAINE HOWARD,JUSTUS DATE/TIME DICTATED:07/20/161427 REHABILITATION THERAPY TECHNICIAN:LEE DATE/TIME TRANSCRIBED:07/20/161427 CONFIDENTIAL, DO NOT COPY WITHOUT APPROPRIATE AUTHORIZATION. Disposition Summary Disposition Principal Diagnosis: COPD exacerbation Additional Diagnosis: dysphagia Discharge Disposition: home or self care Discharge Instructions General Discharge Information Code Status: Full Code Patient's Diet: Heart healthy diet nectar liquid Patient's Activity: As tolerated Follow-Up Instructions/Appts: Please follow-up with your primary care doctor within 1 week Please follow-up with your heater mechanic within 1 week Please follow-up with your wire dropper within 1 week please follow up as outpatient for Swallowing evaluation Medications at Discharge Discharge Medications: Continue taking these medications: Lorazepam (Lorazepam) 1 MG TABLET 1 Tablet ORAL Every night Comments: Last Taken: 07/25/16 Time: 9:00PM Lorazepam (Ativan) 0.5 MG TABLET 1 Tablet ORAL 2 x Daily as needed as needed for ANXIETY Comments: NOT GIVEN WHILE IN HOSPITAL Multivitamin (One Daily Multivitamin) 1 EACH TABLET 1 Tablet ORAL DAILY Comments: NOT GIVEN IN HOSPITAL Docusate Sodium (Colace) 100 MG CAPSULE 1 Capsule ORAL Every night Comments: Last Taken: 07/26/16 Time: 9:00 AM Budesonide/Formoterol Fumarate (Symbicort 160-4.5 Mcg Inhaler) 160 MCG-4.5 MCG/ ACTUATION HFA.AER.AD 2 Puff Inhale through mouth TWICE DAILY Comments: Last Taken: 07/26/16 Time: 9:00 AM Diltiazem HCl (Cardizem Cd) 240 MG CAP.ER.24H 1 Capsule ORAL DAILY Comments: Last Taken: 07/26/16 Time: 9:00 AM Meclizine HCl (Meclizine HCl) 12.5 MG TABLET 1 Tablet ORAL TWICE DAILY Comments: Last Taken: 07/24/16 Time: 8:30 PM Sennosides/Docusate Sodium (Senna-Docusate Sodium Tablet) 8.6 MG-50 MG TABLET 1 Tablet ORAL Every night Comments: NOT GIVEN IN HOSPITAL Benzonatate (Benzonatate) 100 MG CAPSULE 1 Capsule ORAL 2 x Daily as needed as needed for COUGH Comments: Last Taken: 07/24/16 Time: 9:30 AM Diltiazem HCl (Diltiazem HCl) 30 MG TABLET 1 Tablet ORAL DAILY as needed for HEART Qty = 30 Comments: NOT GIVEN WHILE IN HOSPITAL Ergocalciferol (Vitamin D2) (Vitamin D2) 50,000 UNIT CAPSULE 1 Capsule ORAL Once a Week Qty = 4 Comments: NOT GIVEN IN HOSPITAL Furosemide (Furosemide) 20 MG TABLET 1 Tablet ORAL DAILY as needed for WATER PILL Comments: NOT GIVEN IN HOSPITAL Ipratropium/Albuterol Sulfate (Iprat-Albut 0.5-3(2.5) MG/3 Ml) 0.5 MG-3 MG (2.5 MG BASE)/3 ML AMPUL.NEB 1 Inhalation ORAL 4 TIMES A DAY Qty = 270 Comments: Last Taken: 07/26/16 Time: 12:00 PM Omeprazole (Omeprazole) 20 MG CAPSULE.DR 1 Capsule ORAL DAILY as needed for ACID Comments: NOT GIVEN WHILE IN HOSPITAL Polyethylene Glycol 3350 (Miralax) 17 GRAM POWD.PACK 1 Packet ORAL DAILY as needed for CONSTIPATION Instructions: dissolve in water Comments: NOT GIVEN IN HOSPITAL Sucralfate (Sucralfate) 1 GRAM/10 ML ORAL.SUSP 1 Gram ORAL DAILY Qty = 1 Instructions: GIVE 1/2 HOUR PRIOR TO PREDINSONE DOSE Comments: Last Taken: 07/26/16 Time: 9:00 AM Prednisone (Prednisone) 2.5 MG TABLET 1 Tablet ORAL DAILY Comments: 5 MG GIVEN Last Taken: 07/26/16 Time: 9:00 AM Copies To: MEGHANA HOWARD,EDILBERTO SJasmeet; WILMER HOWARD,M. KEVEN; JAKE HOWARD,YAIR Attending MD Review Statement Documenting Attending: SADIA HOWARD,MUSHTAQ Love Other Findings: Please see my separate attending note for more details. Agree with above.
--- NOTE | 2016-07-26 10:55 | PN- Pulmonary ---
Subjective HPI/Critical Care Issues: pt seen and examined anticipating dc reduced to 5mg prednisone returning to respiratory baseline Objective Current Medications: Current Medications Sig/Bill Start time Last Medication Dose Route Stop Time Status Admin Acetaminophen 650 MG Q8P PRN 07/20 183 AC PO Acetaminophen/ 1 TAB Q8P PRN 07/20 183 AC Hydrocodone Bitart PO Albuterol Sulfate 3 ML EVERY 4 HRS/AWAKE 07/21 08 AC 07/26 INH 0722 Benzonatate 100 MG BID 07/20 183 AC 07/24 PO 0938 Budesonide/ 2 PUF BID 07/20 220 AC 07/26 Formoterol Fumarate INH 0854 Diltiazem HCl 240 MG DAILY 07/21 1000 AC 07/26 PO 0851 Docusate Sodium 100 MG BID 07/21 2199 AC 07/26 PO 0851 Enoxaparin Sodium 40 MG DAILY 07/21 1000 AC SC Guaifenesin 10 ML .STK-MED ONE 07/25 2104 DC PO 07/25 2105 Guaifenesin 10 ML Q6P PRN 07/20 2330 AC 07/25 PO 2103 Insulin Aspart 0 TIDAC 07/21 0800 AC 07/24 SC 1657 Ipratropium [place]hey 2.5 ML EVERY 4 HRS/AWAKE 07/21 08 AC 07/26 INH 0722 Lorazepam 1 MG QPM 07/20 2199 AC 07/25 PO 2059 Magnesium Hydroxide 30 ML ONE PRN 07/21 2030 AC 07/21 PO 2142 Meclizine HCl 12.5 MG BID 07/20 2199 AC 07/24 PO 2038 Morphine Sulfate 2 MG Q8P PRN 07/20 183 AC IV Omeprazole 20 MG DAILY PRN 07/20 183 AC PO Prednisone 5 MG ONCE ONE 07/26 1000 DC 07/26 PO 07/26 1001 0852 Senna 187 MG AT BEDTIME 07/21 0130 AC PO Sucralfate 1 GM DAILY 07/21 1000 AC 07/26 PO 0850 Vital Signs & I&O Last 24 Hrs of Vitals and I&O: Vital Signs Date Time Temp Pulse Resp B/P B/P Pulse O2 O2 Flow FiO2 Mean Ox Delivery Rate 07/26 0818 97.0 72 18 124/76 98 Nasal 2.5L Cannula 07/26 08 98 Nasal 2.5L Cannula 07/26 0723 98 Nasal 2.0L Cannula 07/26 0000 Nasal 2.5L Cannula 07/25 2230 98.4 72 20 92/50 94 Nasal Cannula 07/25 1720 95 Nasal 2.5L Cannula 07/25 1600 94 Nasal 2.5L Cannula 07/25 1554 98.5 74 22 104/54 94 Nasal 2.5L Cannula Intake & Output 07/26 1600 07/26 0800 07/26 0000 Intake Total 360 Output Total Balance 360 Intake, Oral 360 Exam Other Physical Findings: gen awake and alert heent ncat cvs s1, s2 lungs rare rhonchi, prolonged end expiratory phase abd soft bs+ ext without edema Impression/Plan Impression/Plan Impression/Plan: Impression 76 year old woman * acute on chronic hypoxemic respiratory failure -aecopd * hx of MAT Plan -5mg prednisone can be tapered to 2.5mg at home -trc/nebs -can cont course of zithromax -cont symbicort with rinsing of the mouth -dc planning -o2 supplementation DVT prophylaxis at all times
== END 2016-07-26 15:35 | disposition home health service (06) | DRG 190 ==
LOC: ERH 11:47 → ERHI 15:21 → 1NO 15:21 → EDBEDREQ 17:39 → ENRESERV 17:57 → ENTRNSPT 19:08 → 1NO 19:34 → CMPTRNSPT 20:20 → 1NO 07-21 09:14 → ENPENDDIS 07-26 09:33 → 1NO 07-26 15:35
PROVIDERS: Internal Medicine Cardiovascular Disease; Student in an Organized Health Care Education/Training Program; ADMIT Internal Medicine
DX: J44.1 Chronic obstructive pulmonary disease with (acute) exacerbation (principal); J96.21 Acute and chronic respiratory failure with hypoxia; I50.32 Chronic diastolic (congestive) heart failure; I47.1 Supraventricular tachycardia; I27.2 Other secondary pulmonary hypertension; Z99.81 Dependence on supplemental oxygen; E11.9 Type 2 diabetes mellitus without complications; Z79.84 Long term (current) use of oral hypoglycemic drugs; F41.9 Anxiety disorder, unspecified; G47.33 Obstructive sleep apnea (adult) (pediatric); E78.5 Hyperlipidemia, unspecified; M81.0 Age-related osteoporosis without current pathological fracture; Z87.891 Personal history of nicotine dependence; Z79.52 Long term (current) use of systemic steroids; K59.00 Constipation, unspecified; I71.4 Abdominal aortic aneurysm, without rupture
CPT/HCPCS: 1NSP; 76770; 82436; 93005; 93010; 96374; 97112-GO; 97116-GO; 97161-GP; J0456; J1650; J2405; J2920; J3490; J7040; J7512

== ENCOUNTER 2017-10-18 09:47 | Inpatient (IN) | payer OTHER ==
[~2017-10-18] VITALS: Ht 147.3 cm; Wt 58.1 kg
--- NOTE | 2017-10-18 09:58 | ED DYSPNEA/ASTHMA COMPLAINT ---
History of Present Illness General Chief Complaint: Dyspnea (COPD, CHF, Other) Stated Complaint: BIBA COPD, CHF, GERD Source: patient, old records Exam Limitations: no limitations Vital Signs & Intake/Output Vital Signs & Intake/Output Vital Signs Date Time Temp Pulse Resp B/P B/P Pulse O2 O2 Flow FiO2 Mean Ox Delivery Rate 10/18 1129 96 Nasal 2.5L Cannula 10/18 0959 98.3 80 26 133/61 92 Nasal 2.5L Cannula Allergies Coded Allergies: Iodinated Contrast- Oral and IV Dye (IODINATED CONTRAST MEDIA - IV DYE) ( Intermediate, HIVES, RASH 04/27/15) Penicillins (Intermediate, HIVES 04/27/15) Sulfa (Sulfonamide Antibiotics) (Intermediate, HIVES 04/27/15) methylprednisolone (Mild, "TOO MANY SIDE EFFECTS, HIGH SUGAR, LOOSE TEETH, NECK BONES" 04/27/15) Triage Note: PT BIBA FROM HOME FOR C/O SOB, NAUSEA, DIZZINESS, TINGLING TO HEAD AND LIPS. PT IS O2 DEPENDANT AT 2LNC. PT ARRIVES TO ED A/OX3, DENIES ANY PAIN BUT C/O TINGLING TO HEAD AND NAUSEA. PT RECEIVED 4MG IVP ZOFRAN AND DUONEB EN ROUTE. Triage Nurses Notes Reviewed? yes Onset: Gradual Duration: day(s): Timing: recent history HPI: 77yo female with hx of COPD on 2.5L home O2, A FIB on cardizem, HTN, CHF BIBA complaining of unilateral headache, lip tingling, and weakness. 5 days ago, pt started to have new onset of unilateral headache and tingling which she describes as "ants in her head". She notes that you can draw a line down the middle and the symptoms are only to the left side and radiate down to her neck. Pt also has concurrent dizziness, feeling like the room is spinning and nausea. Due to the nausea, she has been unable to eat and vomited once. Pt notes double vision with irritation from the light, so she has been sitting in a dark room with blanket over her head. She denies any tinnitus or hearing changes. She is experiencing increased generalized weakness, tingling of her upper extremities and tingling/cramps of her lower extermities. Pt is independent, lives alone and has not been improving, so she was BIBA today for further evaluation. Pt believes that the symptoms she is having are attributed to side effects from diltiazam. Pt began taking Diltiazam prescribed by rubber chemist Dr. Connor 1 year ago. Pt notes that since starting the medication, she has been experiencing lip tingling at baseline. Pt notes that the lip tingling has been getting worse over the last few days and she has had this new onset of headaches. Pt was recently seen by her dentist for tooth extraction and denture placement. Pt believes that this dental visit may be contributing to her symptoms as well. Pt denies any fevers, chills, chest pain, abdominal pain, or changes in bowel habits. Pt denies any recent falls or trauma to the head. (Cintia SAENZ,Poonam Arnett) Reconcile Medications Benzonatate 100 MG CAPSULE 1 CAP PO BIDP PRN COUGH (Reported) Budesonide/Formoterol Fumarate (Symbicort 160-4.5 Mcg Inhaler) 160 MCG-4.5 MCG/ ACTUATION HFA.AER.AD 2 PUF INH BID COPD (Reported) Diltiazem HCl (Cardizem Cd) 240 MG CAP.ER.24H 1 CAP PO DAILY HEART (Reported) Diltiazem HCl 30 MG TABLET 1 TAB PO DAILY PRN HEART (Reported) Docusate Sodium (Colace) 100 MG CAPSULE 1 CAP PO QPM CONSTIPATION (Reported) Ergocalciferol (Vitamin D2) (Vitamin D2) 50,000 UNIT CAPSULE 1 CAP PO QW SUPPLEMENT (Reported) Furosemide 20 MG TABLET 1 TAB PO DAILY PRN WATER PILL (Reported) Ipratropium/Albuterol Sulfate (Iprat-Albut 0.5-3(2.5) MG/3 Ml) 0.5 MG-3 MG (2.5 MG BASE)/3 ML AMPUL.NEB 1 INH PO 4 TIMES/DAY BREATHING PROBLEMS (Reported) Lorazepam 1 MG TABLET 1 TAB PO QPM SLEEP (Reported) Lorazepam (Ativan) 0.5 MG TABLET 1 TAB PO BIDP PRN ANXIETY (Reported) Multivitamin (One Daily Multivitamin) 1 EACH TABLET 1 TAB PO DAILY SUPPLEMENT (Reported) Omeprazole 20 MG CAPSULE.DR 1 CAP PO DAILY PRN ACID (Reported) Polyethylene Glycol 3350 (Miralax) 17 GRAM POWD.PACK 1 PAC PO DAILY PRN CONSTIPATION (Reported) dissolve in water Prednisone 1 MG TABLET 4 TAB PO DAILY COPD (Reported) Sennosides/Docusate Sodium (Senna-Docusate Sodium Tablet) 8.6 MG-50 MG TABLET 1 TAB PO QPM CONSTIPATION (Reported) Simvastatin (Simvastatin*) 10 MG TABLET 1 TAB PO QPM HL (Reported) Sucralfate 1 GRAM/10 ML ORAL.SUSP 1 GM PO DAILY chronic steroid use GIVE 1/2 HOUR PRIOR TO PREDINSONE DOSE (Faith HOWARD,Tyrese Carter) Past History Travel History Traveled to [place] past 21 day No Medical History Any Pertinent Medical History? 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 No (Poonam Montiel) Review of Systems Review of Systems Constitutional: Reports: see HPI. EENTM: Reports: see HPI. Respiratory: Reports: see HPI. Cardiovascular: Reports: no symptoms. GI: Reports: no symptoms. Genitourinary: Reports: no symptoms. Musculoskeletal: Reports: see HPI. Skin: Reports: no symptoms. Neurological/Psychological: Reports: see HPI. Hematologic/Endocrine: Reports: no symptoms. Immunologic/Allergic: Reports: no symptoms. All Other Systems: Reviewed and Negative (Poonam Montiel) Physical Exam Physical Exam General Appearance: well developed/nourished, no apparent distress, alert, awake Head: atraumatic, normal appearance Eyes: Bilateral: normal appearance, PERRL, EOMI, other. Ears, Nose, Throat: normal pharynx, normal ENT inspection, hearing grossly normal Neck: normal inspection, supple, full range of motion Respiratory: normal breath sounds, chest non-tender, lungs clear, decreased breath sounds (mildly, bilaterally) Cardiovascular: regular rate/rhythm, normal peripheral pulses Gastrointestinal: soft, non-tender Extremities: normal inspection Neurologic/Psych: awake, alert, oriented x 3, material controller II-XII nml as tested, motor weakness Skin: intact, normal color, warm/dry Core Measures ACS in differential dx? Yes CVA/TIA Diagnosis No Sepsis Present: No Sepsis Focused Exam Completed? No (Cintia SAENZ,Poonam Arnett) Progress Differential Diagnosis: AMI, CHF, COPD, pneumonia, electrolyte abnormality, anemia, ICH/mass/lesion, respiratory failure, hypoxia Plan of Care: Orders Procedure Date/time Status EKG 10/19 2214 Active Heart Healthy Diet 10/18 D Active TROPONIN LEVEL 10/18 2215 Active TROPONIN LEVEL 10/18 1615 Active EKG 10/18 1615 Active URINALYSIS 10/18 1307 Complete ECHOCARDIOGRAM 10/18 1256 Active Pathway - chart 10/18 1236 Active Patient Data 10/18 1236 Active Patient Data 10/18 1224 Active ED Holding Orders 10/18 1222 Active Admit to inpatient 10/18 1222 Active Vital Signs 10/18 1222 Active Code Status 10/18 1222 Active TROPONIN LEVEL 10/18 0953 Complete PARTIAL THROMBOPLASTIN TIME 10/18 0953 Complete PROTHROMBIN TIME 10/18 0953 Complete MAGNESIUM 10/18 0953 Complete COMPREHENSIVE METABOLIC PANEL 10/18 0953 Complete CBC WITHOUT DIFFERENTIAL 10/18 0953 Complete B-TYPE NATRIURETIC PEP (BNP) 10/18 0953 Complete EKG 10/18 0953 Active Intake & Output 10/18 0949 Active Saline Lock 10/18 UNK Active Pathway - chart 10/18 UNK Active House Staff 10/18 UNK Active VTE Mechanical Prophylaxis 10/18 UNK Active Vital Signs 10/18 UNK Complete Telemetry/Climatology Professor 10/18 UNK Active Intake & Output 10/18 UNK Complete Activity/Ambulation 10/18 UNK Active CASE MANAGEMENT CONSULT 10/18 UNK Active Current Medications Sig/Bill Start time Last Medication Dose Stop Time Status Admin Enoxaparin Sodium 40 MG DAILY 10/19 0900 AC (Lovenox) Multivitamins 1 TAB DAILY 10/19 0900 CAN (Theragran Vitamins) Lorazepam 1 MG QPM 10/18 2100 AC (Ativan) Laboratory Tests 10/18/17 1307: Urinalysis HEAVY H, Urine Color YEL, Urine Clarity HAZY H, Urine pH 7.5, Ur Specific [place] 1.015, Urine Protein NEG, Urine Ketones NEG, Urine Nitrite NEG, Urine Bilirubin NEG, Urine Urobilinogen 0.2, Ur Leukocyte Esterase TRACE H, Ur Microscopic SEDIMENT EXAMINED, Urine RBC RARE, Urine WBC 1-3 H, Ur Epithelial Cells RARE, Urine Hemoglobin NEG, Urine Glucose NEG 10/18/17 1016: Anion Gap 5, Estimated GFR > 60, BUN/Creatinine Ratio 21.7, Glucose 107 H, Calcium 9.3, Magnesium 1.9, Total Bilirubin 0.8, AST 19, ALT 26, Alkaline Phosphatase 82, Troponin I < 0.01, Zqe-X-Zzlobjspdxr Pept 146 H, Total Protein 6.2 L, Albumin 3.7, Globulin 2.5, Albumin/Globulin Ratio 1.5, PT 12.0, INR 1.10 , APTT 27, CBC w Diff NO MAN DIFF REQ, RBC 5.04, MCV 82.6, MCH 27.8, MCHC 33.6, RDW 13.3, MPV 7.6, Gran % 61.9, Lymphocytes % 30.8, Monocytes % 5.3, Eosinophils % 1.6, Basophils % 0.4, Absolute Granulocytes 4.2, Absolute Lymphocytes 2.1, Absolute Monocytes 0.4, Absolute Eosinophils 0.1, Absolute Basophils 0 I recommended CXR given patient's hx of COPD, CHF and her low O2 sat. Patient reports her baseline is 96% with supplemental O2 and her saturation currently is 89-92%. Patient declines CXR. EKG shows t wave inversions, patient has no active chest pain. CT head is stable, labs are stable. Given EKG changes with weakness and nonspecific symptoms hospital stay is appropriate for further ACS rule out and cardiology consult. Case management recommend full admission. Dr. Cuevas spoke with hospitalist regarding telemetry admission. Diagnostic Imaging: Viewed by Me: CT Scan. Discussed w/RAD: CT Scan. Radiology Impression: PATIENT: PANKAJ MORALES PRESENT AGE: 77 PATIENT ACCOUNT NO: [id number] : 39 LOCATION: [facility] ORDERING PHYSICIAN: Poonam SAENZ SERVICE DATE: 10/18/17 EXAM TYPE: CAT - CT HEAD WO IV CONTRAST EXAMINATION: CT HEAD WITHOUT CONTRAST CLINICAL INFORMATION: Paresthesias head and face. Assess for intracranial hemorrhage, mass or other lesion. COMPARISON: CT scan of the head 01/22/2015. TECHNIQUE: Contiguous axial imaging was performed from the skull base to vertex without intravenous administration of contrast. DLP: 543.81 mGy-cm FINDINGS: There is no evidence of acute intracranial hemorrhage or territorial infarction. No abnormal mass effect or midline shift is seen. Juárez to white matter differentiation is well preserved. No extra-axial fluid collections are identified. There is mild commensurate prominence of ventricles and sulci consistent with moderate diffuse volume loss. There are patchy areas of low-attenuation the periventricular and subcortical white matter, consistent with chronic microvascular ischemic changes. There are atheromatous calcifications of the cavernous internal carotid arteries bilaterally. There are no acute osseous soft tissue abnormalities. The mastoid air cells and visualized portions of the paranasal sinuses are well aerated. IMPRESSION: 1. There are no acute bleeds or territorial infarcts. No masses are demonstrated. 2. There is mild diffuse volume loss and there are chronic microvascular ischemic changes. DICTATED BY: Dexter Garcia MD DATE/TIME DICTATED:10/18/171122 TELEMARKETING FUNDRAISER:LEE DATE/TIME TRANSCRIBED:1122 CONFIDENTIAL, DO NOT COPY WITHOUT APPROPRIATE AUTHORIZATION. < Electronically signed in Other Vendor System> SIGNED BY: Dexter Garcia MD 1134 Initial ED EKG: sinus rhythm @77bpm, t wave inversions V1-V4 Prior EKG: changed (07/20/16) (Poonam Montiel) Departure Departure Disposition: STILL A PATIENT Condition: Stable Clinical Impression Primary Impression: Acute electrocardiogram changes Secondary Impressions: Paresthesias, Weakness Referrals: Letitia HOWARD,MJasmeet Hercules (PCP/Family) Departure Forms: Customer Survey General Discharge Information (Poonam Montiel) Admission Note Spoke With: Jasmina Gloria MD Documentation of Exam: Documentation of any treatments & extenuating circumstances including Concerns Regarding Discharge (functional status, medication knowledge or non-compliance, living conditions, etc.) that warrant an admission rather than observation: [ Telemetry admission, serial enzymes, cardiology consultation, med-adjustment, repeat echocardiogram] PA/CHILD CARE PROVIDER Co-Sign Statement Statement: ED Attending supervision documentation- [X] I saw and evaluated the patient. I have also reviewed all the pertinent lab results and diagnostic results. I agree with the findings and the plan of care as documented in the PA's/CHILD CARE PROVIDER's documentation. [X] I have reviewed the ED Record and agree with the PA's/CHILD CARE PROVIDER's documentation. [] Additions or exceptions (if any) to the PAs/CHILD CARE PROVIDER's note and plan are summarized below: [SEE ABOVENOTE] (Faith HOWARD,Tyrese Carter) Critical Care Note Critical Care Note Critical Care Time: non-applicable (Cintia SAENZ,Poonam Arnett)
[2017-10-18 10:32] LABS: ABSOLUTE BASOPHIL COUNT 0 /CUMM (0.0-0.2); ABSOLUTE EOSINOPHIL COUNT 0.1 /CUMM (0.0-0.7); ABSOLUTE GRANULOCYTE CT 4.2 /CUMM (1.4-6.5); ABSOLUTE LYMPH COUNT 2.1 /CUMM (1.2-3.4); ABSOLUTE MONOCYTE COUNT 0.4 /CUMM (0.10-0.60); BASOPHIL % 0.4 % (0.0-2.0); EOSINOPHIL % 1.6 % (0-5); GRANULOCYTE % 61.9 % (42.2-75.2); HEMATOCRIT 41.7 % (37-47); MEAN CORPUSCULAR HGB 27.8 PG (27.0-31.0); MEAN CORPUSCULAR HGB CONC 33.6 G/DL (33.0-37.0); MEAN CORPUSCULAR VOLUME 82.6 FL (81.0-99.0); MEAN PLATELET VOLUME 7.6 FL (7.4-10.4); PLATELET COUNT 279 /CUMM (130-400); RBC DISTRIBUTION WIDTH 13.3 % (11.5-14.5); RED BLOOD CELL CT 5.04 /CUMM (4.20-5.40); WHITE BLOOD CELL COUNT 6.8 /CUMM (4.8-10.8)
[2017-10-18 10:52] LABS: PTT 27 SEC (25-37)
--- NOTE | 2017-10-18 11:34 | CT SCAN REPORT ---
EXAMINATION: CT HEAD WITHOUT CONTRAST CLINICAL INFORMATION: Paresthesias head and face. Assess for intracranial hemorrhage, mass or other lesion. COMPARISON: CT scan of the head 01/22/2015. TECHNIQUE: Contiguous axial imaging was performed from the skull base to vertex without intravenous administration of contrast. DLP: 543.81 mGy-cm FINDINGS: There is no evidence of acute intracranial hemorrhage or territorial infarction. No abnormal mass effect or midline shift is seen. Juárez to white matter differentiation is well preserved. No extra-axial fluid collections are identified. There is mild commensurate prominence of ventricles and sulci consistent with moderate diffuse volume loss. There are patchy areas of low-attenuation the periventricular and subcortical white matter, consistent with chronic microvascular ischemic changes. There are atheromatous calcifications of the cavernous internal carotid arteries bilaterally. There are no acute osseous soft tissue abnormalities. The mastoid air cells and visualized portions of the paranasal sinuses are well aerated. IMPRESSION: 1. There are no acute bleeds or territorial infarcts. No masses are demonstrated. 2. There is mild diffuse volume loss and there are chronic microvascular ischemic changes.
--- NOTE | 2017-10-18 11:52 | Cons- Cardiology ---
General Information and HPI Consulting Request Date of Consult: 10/18/17 Requested By: Dr. Cuevas Reason for Consult: Abnormal ECG Source of Information: patient, old records Exam Limitations: no limitations History of Present Illness: The patient is a 77-year-old female who is usually followed by Dr. 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 I was asked see the patient for an abnormal EKG. The patient has a history of COPD on home oxygen, prior MAT on oral Cardizem, hypertension, reported CHF, who is admitted to the hospital via the emergency room with multiple complaints including a headache/head tingling, lip tingling, weakness, etc. Symptoms are primarily on the left side of her head. The rate to her neck. She also feels dizzy. She notes that she took her last Cardizem tablet yesterday and ran out of it. She has had some double vision and, however , denies any other focal neurologic symptoms. She has noted some increased generalized weakness. She denies any other cardiac symptoms as far as I can discern. Her ECG shows new anterolateral T-wave inversions when compared to her prior EKG. She also notes that she had a recent multiple dental extractions performed at [facility]. Allergies/Medications Allergies: Coded Allergies: Iodinated Contrast- Oral and IV Dye (IODINATED CONTRAST MEDIA - IV DYE) ( Intermediate, HIVES, RASH 04/27/15) Penicillins (Intermediate, HIVES 04/27/15) Sulfa (Sulfonamide Antibiotics) (Intermediate, HIVES 04/27/15) methylprednisolone (Mild, "TOO MANY SIDE EFFECTS, HIGH SUGAR, LOOSE TEETH, NECK BONES" 04/27/15) Home Med List: Benzonatate 100 MG CAPSULE 1 CAP PO BIDP PRN COUGH (Reported) Budesonide/Formoterol Fumarate (Symbicort 160-4.5 Mcg Inhaler) 160 MCG-4.5 MCG/ ACTUATION HFA.AER.AD 2 PUF INH BID COPD (Reported) Docusate Sodium (Colace) 100 MG CAPSULE 1 CAP PO QPM CONSTIPATION (Reported) Ergocalciferol (Vitamin D2) (Vitamin D2) 50,000 UNIT CAPSULE 1 CAP PO QW SUPPLEMENT (Reported) Furosemide 20 MG TABLET 1 TAB PO DAILY PRN WATER PILL (Reported) Ipratropium/Albuterol Sulfate (Iprat-Albut 0.5-3(2.5) MG/3 Ml) 0.5 MG-3 MG (2.5 MG BASE)/3 ML AMPUL.NEB 1 INH PO 4 TIMES/DAY BREATHING PROBLEMS (Reported) Lorazepam 1 MG TABLET 1 TAB PO QPM SLEEP (Reported) Lorazepam (Ativan) 0.5 MG TABLET 1 TAB PO BIDP PRN ANXIETY (Reported) Multivitamin (One Daily Multivitamin) 1 EACH TABLET 1 TAB PO DAILY SUPPLEMENT (Reported) Omeprazole 20 MG CAPSULE.DR 1 CAP PO DAILY PRN ACID (Reported) Prednisone 1 MG TABLET 4 TAB PO DAILY COPD (Reported) Sennosides/Docusate Sodium (Senna-Docusate Sodium Tablet) 8.6 MG-50 MG TABLET 1 TAB PO QPM CONSTIPATION (Reported) Simvastatin (Simvastatin*) 10 MG TABLET 1 TAB PO QPM HL (Reported) Sucralfate 1 GRAM/10 ML ORAL.SUSP 1 GM PO DAILY chronic steroid use GIVE 1/2 HOUR PRIOR TO PREDINSONE DOSE Verapamil Hydrochloride (Verapamil HCl) 40 MG TABLET 1 TAB PO TID MAT .. Current Medications: Current Medications Sig/Bill Start time Last Medication Dose Route Stop Time Status Admin Albuterol Sulfate 3 ML ONCE ONE 10/18 1100 DC 10/18 INH 10/18 1101 1129 Ipratropium Mentcle 2.5 ML ONCE ONE 10/18 1100 DC 10/18 INH 10/18 1101 1128 Past History Travel History Traveled to [place] past 21 day No Medical History Neurological: dizziness EENT: NONE Cardiovascular: diastolic CHF, hyperlipidemia, ATRIAL TACYCARDIA Respiratory: COPD, obstructive sleep apnea, USES NASAL O2 AT 2.5 L Gastrointestinal: NONE Hepatic: NONE Renal: NONE Musculoskeletal: osteoporosis Psychiatric: NONE Endocrine: NONE Blood Disorders: NONE Cancer(s): NONE 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 self Services at Home: Oxygen Primary Language: Swedish ETOH Use: denies use Illicit Drug Use: denies illicit drug use Functional Ability ADLs Independent: dressing, eating, toileting, bathing. Ambulation: independent IADLs Independent: shopping, housework, finances, food prep, telephone, transportation , medication admin. Exam & Diagnostic Data Vital Signs and I&O Vital Signs Date Time Temp Pulse Resp B/P B/P Pulse O2 O2 Flow FiO2 Mean Ox Delivery Rate 10/18 1129 96 Nasal 2.5L Cannula 10/18 0959 98.3 80 26 133/61 92 Nasal 2.5L Cannula Intake & Output 10/18 1600 10/18 0800 10/18 0000 10/17 1600 10/17 0810/17 0000 Intake Total Output Total Balance Patient 120 lb Weight Weight Estimated Measurement Method Physical Exam: General Appearance: well developed/nourished, alert, very anxious white female Head: normal HEENT: Normal Neck: supple, JVP normal, carotid upstrokes normal bilaterally, no masses or thyromegaly Respiratory: chest non-tender, clear to auscultation and percussion bilaterally Cardiovascular: regular rate/rhythm, normal S1, S2, 1/6 systolic murmur Abdomen: normal bowel sounds, soft, non-tender Extremities: normal inspection, no edema Vascular: Pulses are 2+ and equal bilaterally Neurologic: Grossly normal/nonfocal Labs/Eduardo Results: Laboratory Tests 10/18 1016 Chemistry Sodium (137 - 145 mmol/L) 138 Potassium (3.5 - 5.1 mmol/L) 4.3 Chloride (98 - 107 mmol/L) 97 L Carbon Dioxide (22 - 30 mmol/L) 35 H Anion Gap (5 - 16) 5 BUN (7 - 17 mg/dL) 13 Creatinine (0.5 - 1.0 mg/dL) 0.6 Estimated GFR (>60 ml/min) > 60 BUN/Creatinine Ratio (7 - 25 %) 21.7 Glucose (65 - 99 mg/dL) 107 H Calcium (8.4 - 10.2 mg/dL) 9.3 Magnesium (1.6 - 2.3 mg/dL) 1.9 Total Bilirubin (0.2 - 1.3 mg/dL) 0.8 AST (14 - 36 U/L) 19 ALT (9 - 52 U/L) 26 Alkaline Phosphatase (<127 U/L) 82 Troponin I (< 0.11 ng/ml) < 0.01 Aie-R-Bliuiggcdrs Pept (<125 pg/mL) 146 H Total Protein (6.3 - 8.2 g/dL) 6.2 L Albumin (3.5 - 5.0 g/dL) 3.7 Globulin (1.9 - 4.2 gm/dL) 2.5 Albumin/Globulin Ratio (1.1 - 2.2 %) 1.5 Coagulation PT (9.4 - 12.5 SEC) 12.0 INR (0.90 - 1.19) 1.10 APTT (25 - 37 SEC) 27 Hematology CBC w Diff NO MAN DIFF REQ WBC (4.8 - 10.8 /CUMM) 6.8 RBC (4.20 - 5.40 /CUMM) 5.04 Hgb (12.0 - 16.0 G/DL) 14.0 Hct (37 - 47 %) 41.7 MCV (81.0 - 99.0 FL) 82.6 MCH (27.0 - 31.0 PG) 27.8 MCHC (33.0 - 37.0 G/DL) 33.6 RDW (11.5 - 14.5 %) 13.3 Plt Count (130 - 400 /CUMM) 279 MPV (7.4 - 10.4 FL) 7.6 Gran % (42.2 - 75.2 %) 61.9 Lymphocytes % (20.5 - 51.1 %) 30.8 Monocytes % (1.7 - 9.3 %) 5.3 Eosinophils % (0 - 5 %) 1.6 Basophils % (0.0 - 2.0 %) 0.4 Absolute Granulocytes (1.4 - 6.5 /CUMM) 4.2 Absolute Lymphocytes (1.2 - 3.4 /CUMM) 2.1 Absolute Monocytes (0.10 - 0.60 /CUMM) 0.4 Absolute Eosinophils (0.0 - 0.7 /CUMM) 0.1 Absolute Basophils (0.0 - 0.2 /CUMM) 0 Diagnostic Data EKG Results Sinus rhythm; anterolateral ST-T changes, new since prior available ECG. Assessment/Plan Assessment/Plan Assessment: 1. Abnormal ECG with new anterolateral ST-T changes since prior ECG-these new ECG changes since the patient's prior ECG could be related to LVH, underlying ischemic disease, pulmonary hypertension/right heart disease, etc. Workup in progress 2. History of MAT 3. COPD on home oxygen supplementation 4. Headache with multiple new associated symptoms 5. Recommendations: -General management as per the medical team -Serial ECGs -Repeat echocardiogram to rule out any wall motion abnormalities, right heart abnormalities, assess right ventricular systolic pressure, etc. -Patient is convinced that her diltiazem is related to multiple of her symptoms including her dental issues. I would suggest transitioning her to verapamil 40 mg 3 times a day for now. -Further plans after echocardiogram reviewed Consult Acknowledgment - Thank you for your consult request. Consult Acknowledgment - Thank you for your consult request.
--- NOTE | 2017-10-18 12:29 | History & Physical ---
Pritesh Cordonelif 10/18/17 1229: General Information and HPI MD Statement: I have seen and personally examined PANKAJ MORALES and documented this H&P. The patient is a 77 year old F who presented with a patient stated chief complaint of [lip tingling ,sob, ]. 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, mild pulmonary hypertension, obstructive sleep apnea, small abdominal aortic aneurysm, mild concentric left ventricular hypertrophy, stage I diastolic dysfunction, dyslipidemia, palpitations with previously documented multifocal atrial tachycardia (MAT) on cardizem and sinus tachycardia comes in chief complaint of worsening dyspnea unilateral headache and tingling in the lip area and tingling and numbness in her left head Apparently 5 days ago patient started to have new onset unilateral headache and tingling which she described as ends in her head associated with concurrent dizziness and felt like her room was spinning along with nausea. She also complained of double vision with irritation from the light and therefore sits in dark room as that makes her feel better. She also complains of some generalized weakness, tingling of the upper extremities as well as tingling and numbness of the lower extremities. She believes that the symptoms she has been having are from diltiazem which was prescribed by her fans clerk Dr. Turner 1 year ago. She thinks that the tingling has been there since she has been taking the diltiazem however it has been getting worse for last few days along with these new onset headaches. She was recently seen by her dentist for tooth extraction and denture placement. She denies any fever, chills, chest pain, diarrhea, constipation, any trauma to the head, any weakness, loss of bowel or bladder control or any other symptoms. Allergies/Medications Allergies: Coded Allergies: Iodinated Contrast- Oral and IV Dye (IODINATED CONTRAST MEDIA - IV DYE) ( Intermediate, HIVES, RASH 04/27/15) Penicillins (Intermediate, HIVES 04/27/15) Sulfa (Sulfonamide Antibiotics) (Intermediate, HIVES 04/27/15) methylprednisolone (Mild, "TOO MANY SIDE EFFECTS, HIGH SUGAR, LOOSE TEETH, NECK BONES" 04/27/15) Home Med list Benzonatate 100 MG CAPSULE 1 CAP PO BIDP PRN COUGH (Reported) Budesonide/Formoterol Fumarate (Symbicort 160-4.5 Mcg Inhaler) 160 MCG-4.5 MCG/ ACTUATION HFA.AER.AD 2 PUF INH BID COPD (Reported) Diltiazem HCl (Cardizem Cd) 240 MG CAP.ER.24H 1 CAP PO DAILY HEART (Reported) Diltiazem HCl 30 MG TABLET 1 TAB PO DAILY PRN HEART (Reported) Docusate Sodium (Colace) 100 MG CAPSULE 1 CAP PO QPM CONSTIPATION (Reported) Ergocalciferol (Vitamin D2) (Vitamin D2) 50,000 UNIT CAPSULE 1 CAP PO QW SUPPLEMENT (Reported) Furosemide 20 MG TABLET 1 TAB PO DAILY PRN WATER PILL (Reported) Ipratropium/Albuterol Sulfate (Iprat-Albut 0.5-3(2.5) MG/3 Ml) 0.5 MG-3 MG (2.5 MG BASE)/3 ML AMPUL.NEB 1 INH PO 4 TIMES/DAY BREATHING PROBLEMS (Reported) Lorazepam 1 MG TABLET 1 TAB PO QPM SLEEP (Reported) Lorazepam (Ativan) 0.5 MG TABLET 1 TAB PO BIDP PRN ANXIETY (Reported) Multivitamin (One Daily Multivitamin) 1 EACH TABLET 1 TAB PO DAILY SUPPLEMENT (Reported) Omeprazole 20 MG CAPSULE.DR 1 CAP PO DAILY PRN ACID (Reported) Polyethylene Glycol 3350 (Miralax) 17 GRAM POWD.PACK 1 PAC PO DAILY PRN CONSTIPATION (Reported) dissolve in water Prednisone 1 MG TABLET 4 TAB PO DAILY COPD (Reported) Sennosides/Docusate Sodium (Senna-Docusate Sodium Tablet) 8.6 MG-50 MG TABLET 1 TAB PO QPM CONSTIPATION (Reported) Simvastatin (Simvastatin*) 10 MG TABLET 1 TAB PO QPM HL (Reported) Sucralfate 1 GRAM/10 ML ORAL.SUSP 1 GM PO DAILY chronic steroid use GIVE 1/2 HOUR PRIOR TO PREDINSONE DOSE Verapamil Hydrochloride (Verapamil HCl) 40 MG TABLET 1 TAB PO TID MAT Compliance With Home Meds: FAIR Past History Travel History Traveled to [place] past 21 day No Medical History Neurological: dizziness EENT: NONE Cardiovascular: diastolic CHF, hyperlipidemia, ATRIAL TACYCARDIA Respiratory: COPD, obstructive sleep apnea, USES NASAL O2 AT 2.5 L Gastrointestinal: NONE Hepatic: NONE Renal: NONE Musculoskeletal: osteoporosis Psychiatric: NONE Endocrine: NONE Blood Disorders: NONE Cancer(s): NONE MATERIALS PLANNER/Reproductive: NONE History of MRSA: No History of VRE: No History of CDIFF: No Surgical History Surgical History: RLL PARTIAL LOBECTOMY R/T GRANULOMAS ECHO Results (as available) Date of last Echo 05/25/17 EF% 65 Past Family/Social History Family History Relations & Conditions if any FATHER FH myocardial infarction male first degree age known MOTHER FH: diabetes mellitus Psychosocial History Who Do You Live With? self Services at Home: Oxygen Primary Language: [place] ETOH Use: denies use Illicit Drug Use: denies illicit drug use Functional Ability ADLs Independent: dressing, eating, toileting, bathing. Ambulation: independent IADLs Independent: shopping, housework, finances, food prep, telephone, transportation , medication admin. Review of Systems Review of Systems Constitutional: Reports: see HPI. Exam & Diagnostic Data Last 24 Hrs of Vital Signs/I&O Vital Signs Date Time Temp Pulse Resp B/P B/P Pulse O2 O2 Flow FiO2 Mean Ox Delivery Rate 10/18 1129 96 Nasal 2.5L Cannula 10/18 0959 98.3 80 26 133/61 92 Nasal 2.5L Cannula Intake & Output 10/18 1600 10/18 0800 10/18 0000 Intake Total Output Total Balance Patient 54.431 kg Weight Weight Estimated Measurement Method Last 24 Hrs of Labs/Eduardo: Laboratory Tests 10/18/17 1016: Anion Gap 5, Estimated GFR > 60, BUN/Creatinine Ratio 21.7, Glucose 107 H, Calcium 9.3, Magnesium 1.9, Total Bilirubin 0.8, AST 19, ALT 26, Alkaline Phosphatase 82, Troponin I < 0.01, Enw-C-Rjdovcthkgx Pept 146 H, Total Protein 6.2 L, Albumin 3.7, Globulin 2.5, Albumin/Globulin Ratio 1.5, PT 12.0, INR 1.10 , APTT 27, CBC w Diff NO MAN DIFF REQ, RBC 5.04, MCV 82.6, MCH 27.8, MCHC 33.6, RDW 13.3, MPV 7.6, Gran % 61.9, Lymphocytes % 30.8, Monocytes % 5.3, Eosinophils % 1.6, Basophils % 0.4, Absolute Granulocytes 4.2, Absolute Lymphocytes 2.1, Absolute Monocytes 0.4, Absolute Eosinophils 0.1, Absolute Basophils 0 Diagnostic Data EKG Results Sinus rhythm; anterolateral ST-T changes, new since prior available ECG. Other Results ct head IMPRESSION: 1. There are no acute bleeds or territorial infarcts. No masses are demonstrated. 2. There is mild diffuse volume loss and there are chronic microvascular ischemic changes. 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 Her vitals on exam temperature of 98.3, pulse of 80, respiration of 26, blood pressure 133/61, she was saturating 96% on 2.5 L of nasal cannula. Vitals T-max of 98.3, pulse of 80, respiration of 36, blood pressure 133/61, he was saturating 92% on 2.5 L of nasal cannula. No white count, H/H of 14.0/41.7, platelet of 279, electrolytes within normal limit, calcium of 9.3, magnesium of 1.9, potassium of 4.3, liver function tests within normal limit, initial set of troponin negative however EKG showed T-wave inversions in anterolateral leads which are new and not present on the previous EKG. She does not complain of any active chest pain. CT head did not show any acute changes. We will admit the patient to cardiac telemetry floor for serial troponin EKG and echocardiogram. Problem list along with assessment and plan. 1. Unilateral headache/tingling and numbness of the lip. * CT head did not show any acute findings. * Continue to monitor vitals. * As per the patient, she seems to think that all of the symptoms are secondary to Cardizem even though she has been taking it for almost a year, we will hold Cardizem for now and start verapamil 40 mg 3 times daily as per cardiology. 2. T-wave inversions in anterolateral leadEKG changes. * Last echocardiogram was 05/25/2017 showed normal-sized left ventricle, and normal left ventricular EF of 65% with stage I diastolic dysfunction. * Obtain serial EKG and troponins and we will repeat echocardiogram for any wall motion abnormalities or other valvular abnormalities. * ct to monitor on cardiac telemetry. 3. History of multifocal atrial tachycardia. * She was kept on Cardizem however she seems to not tolerate it well and seems at all her current symptoms are as side effects of Cardizem, we will hold Cardizem for now. * Continue verapamil 40 mg 3 times daily. * Continue to monitor heart rate. 4. H/o GERd * She takes 20 mg omeprazole every day, without taking it she has severe symptoms of reflux therefore will continue p.o. omeprazole daily at home dosage. 5. Anxiety/Depression/Insomnia * ct lorazepam at bedtime at home dosage, she also takes 0.5 mg as needed lorazepam for anxiety. #6 history of COPD. * History of COPD, not on home oxygen, follows up with Dr. Adams/Dr. Guan, continue TRC evaluation, continue nebulization, currently stable. DVT prophylaxis with Lovenox. Full code. Pain pathway. As Ranked By This Provider Problem List: 1. Paresthesias 2. Acute electrocardiogram changes Core Measures/Misc (11/13) Acute Coronary Syndrome ACS Diagnosis: No Congestive Heart Failure Congestive Heart Failure Diagnosis No Cerebrovascular Accident CVA/TIA Diagnosis: No VTE (View Protocol) VTE Risk Factors No risk factors No Mechanical VTE Prophylaxis d/t Other No VTE Pharm Prophylaxis d/t Other Sepsis (View protocol) Sepsis Present: No If YES complete Sepsis Event Note If YES complete Sepsis Event Note Toña Angeles MD 10/18/17 9799: Core Measures/Misc (11/13) Sepsis (View protocol) If YES complete Sepsis Event Note If YES complete Sepsis Event Note Attending MD Review Statement Attending Statement Attending MD Statement: examined this patient, discuss w/resident/PA/WIND PROJECTS SUPERVISOR, agreed w/resident/PA/WIND PROJECTS SUPERVISOR, discussed with family, reviewed EMR data (avail), discussed with nursing, amended to note
[2017-10-18] MEDS ORDERED: PREDNISONE1 MG PO (13:52)
[2017-10-18] MEDS ORDERED: SIMVASTATIN10 M1 PO (13:53)
[2017-10-18 17:06] VITALS: BP 124/60
[2017-10-18 21:09] VITALS: BP 124/64
[2017-10-19 06:36] VITALS: BP 112/58
--- NOTE | 2017-10-19 07:10 | PN- Housestaff ---
Jose M Hidalgo 10/19/17 0710: Subjective Follow-up For: T wave inversions in anterolateral EKG Subjective: Patient sitting up comfortably when seen and examined. No events overnight. No events on telemetry. She is complaining of lip tingling and "strange sensations " around the left side of her head that seem to have been there chronically. She also c/o of dementia and insomnia. She believes all of these symptoms arose from her dilitiazem. Ever since she stopped that particular brand of CCB, she believes her symptoms have improved. Review of Systems Constitutional: Reports: see HPI. Objective Last 24 Hrs of Vital Signs/I&O Vital Signs Date Time Temp Pulse Resp B/P B/P Pulse O2 O2 Flow FiO2 Mean Ox Delivery Rate 10/19 1920 97 Nasal 2.5L Cannula 10/19 1502 98.8 98 22 130/70 98 Nasal 2.5L Cannula 10/19 1316 97.9 74 20 112/58 10/19 0930 97.9 74 20 11210/19 0930 95 Nasal 2.5L Cannula 10/19 0800 97 Nasal 2.5L Cannula 10/19 0636 97.9 74 20 112/58 95 Intake & Output 10/20 0800 10/20 0000 10/19 1600 Intake Total 760 Output Total Balance 760 Intake, Oral 760 Physical Exam General Appearance: Alert, Cooperative, No Acute Distress HEENT: Atraumatic, EOMI Cardiovascular: Normal S1, Normal S2 Lungs: Clear to Auscultation, Normal Air Movement Abdomen: Normal Bowel Sounds, Soft, No Tenderness Extremities: No Cyanosis, No Tenderness/Swelling Current Medications: Current Medications Sig/Bill Start time Last Medication Dose Route Stop Time Status Admin Acetaminophen 1,000 MG Q6P PRN 10/18 2114 DCD 10/19 N/A 1 UNIT IV 1317 Albuterol Sulfate 3 ML TID 10/18 2100 DCD 10/19 INH 1920 Docusate Sodium 100 MG ONCE ONE 10/19 1530 DC 10/19 PO 10/19 1531 1529 Docusate Sodium 100 MG QPM 10/18 2100 DCD 10/19 PO 1955 Enoxaparin Sodium 40 MG DAILY 10/19 0900 DCD SC Famotidine 20 MG BID PRN 10/19 1321 DCD 08/23 PO 1839 Famotidine 20 MG DAILY 10/19 1207 DC PO Ipratropium [place] 2.5 ML TID 10/18 2100 DCD 10/19 INH 1920 Lorazepam 1 MG QPM 10/18 2100 DCD 10/18 PO 2223 Omeprazole 20 MG DAILY PRN 10/18 1530 DCD 10/19 PO 0828 Ondansetron HCl 4 MG ONCE PRN 10/18 1630 DCD 10/19 IV 1209 Patient Medication 1 ED ONE ONE 10/19 1815 DC 10/19 Teaching ED 10/20 1815 1840 Verapamil HCl 40 MG TID 10/18 1425 DCD 10/19 PO 1955 Last 24 Hrs of Lab/Eduardo Results Last 24 Hrs of Labs/Mics: Laboratory Tests 10/19/17 1409: pH 7.39, pCO2 50 H, pO2 95, HCO3 30 H, ABG O2 Sat (Measured) 96.0, P-50 (Temp Corrected) N, Carboxyhemoglobin 1.1 L, O2 Concentration % 2.5L, Temperature 97.9, O2 Delivery Method N/C, Phlebotomy Draw Site LEFT RADIAL Assessment/Plan Assessment: 77 yo F with PMH of steroid dependent (prednisone 1mg) COPD with frequent exacerbations, chronic hypercapnic respiratory failure, 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 She was also recently seen by her dentist for tooth extraction and denture placement. She is convinced these are all manifestations of Cradizem and thefore stopped taking the medicine. Echocardiogram 10/19/17 CONCLUSIONS Normal global left ventricular size, wall thickness, systolic function with no obvious regional wall motion abnormalities. Abnormal relaxation filling pattern of the left ventricle for age (stage 1 diastolic dysfunction). The left atrium is normal in size. Mild thickening/calcification of the mitral valve leaflets. Moderate mitral annular calcification. Focal thickening of the aortic valve cusps. No aortic stenosis. Right ventricular systolic pressure estimated to be elevated at 45-50 mmHg. The aortic arch and great vessels are not well seen. # EKG changes # Tingling Sensations in Lip # Chronic COPD on prednisone 1mg - cardiolgoy consulted - initial EKG showed some nonspecific changes which have resolved - no evidence of myocardial ischemia, congestive heart failure, etc. - cleared for discharge from a cardiac standpoint as no major abnormalities on echo - ABG showed CO2 retention, which is typical - She continues to get breathing treatments here - Follow up with dentist regarding complaints about dentures - Strange sensation in lips and head can be followed outpatient with PCP or referral for a neurologist, considering how chronic symptoms have been Problem List: 1. Acute electrocardiogram changes Pain Ratin Pain Location: N/A Pain Goal: Remain pain free Pain Plan: Per pathway Tomorrow's Labs & Rationales: None Toña Angeles MD 10/19/17 1617: Attending MD Review Statement Attending Statement Attending MD Statement: examined this patient, discuss w/resident/PA/MACHINE HOOP MAKER HELPER, agreed w/resident/PA/MACHINE HOOP MAKER HELPER, discussed with family, reviewed EMR data (avail), discussed with nursing, discussed with case mgmt, amended to note Attending Assessment/Plan: Patient seen and examined. No events on telemetry monitoring overnight. EKG this morning is unremarkable. She was evaluated by the cardiology service. Patient continues to complaint of sensation of ants crawling in her head. She does admit that it is slightly better compared to presentation. States that the symptoms have been going on for over a month. She came in for evaluation because the symptoms were worse yesterday. She also reports thickness of one side of her upper lip. On examination her lips are symmetrical with no evidence of swelling. On palpation however the left side of her upper lip does feel a little more from compared to the right. There is no erythema. There is no discharge. There is no nodularity. She reports recent dental work I did explain to the patient that. The swelling may be related to her recent dental work. I have encouraged her to follow-up with her dentist upon discharge. She is alert and oriented x3. She is ambulating freely. She is on her baseline oxygen supplementation. She however reports that her generalized malaise may be related to her COPD and insisted on having an ABG to evaluate her CO2 level. I did explain to her that it is no indication for this test at present however she could very upset and insisted on testing done. ABG was obtained that did show CO2 retention. This however is chronic for her. Her levels have been elevated higher than current level. She is not somnolent. She is ambulating freely. She is maintaining saturation on room air. On examination she has adequate entry bilaterally with no rhonchorous breath sounds. Her hypercapnia is chronic. Echocardiogram is currently pending to evaluate for any wall motion abnormalities, if negative he may be discharged home as recommended by the cardiology service. She has been advised to follow-up with her primary care provider and also with her dental service. This was discussed with the patient in the company of her daughter.
--- NOTE | 2017-10-19 10:52 | PN- Cardiology ---
Subjective Subjective: The patient is feeling okay. She is not having any neurological or cardiac symptoms. She is in sinus rhythm. She is not having any arrhythmias. Her EKG today is unremarkable. Her enzymes are negative 3. She is having her echocardiogram at this time. Objective Vital Signs and I&Os Vital Signs Date Time Temp Pulse Resp B/P B/P Pulse O2 O2 Flow FiO2 Mean Ox Delivery Rate 10/19 0930 97.9 74 20 112/58 10/19 0930 95 Nasal 2.5L Cannula 10/19 0636 97.9 74 20 112/58 95 10/19 0049 93 95 10/19 0000 CPAP 10/18 2252 82 93 10/18 2142 Nasal 2.5L Cannula 10/18 2139 95 Nasal 2.5L Cannula 10/18 2109 98.8 85 20 124/64 97 Nasal Cannula 10/18 2048 124/64 10/18 1755 98 Nasal 2.5L Cannula 10/18 1706 98.3 91 20 124/60 94 Nasal 2.0L Cannula 10/18 1651 94 132/80 10/18 1617 Nasal 2.5L Cannula 10/18 1541 96 Nasal 2.0L Cannula 10/18 1504 94 18 127/60 98 10/18 1129 96 Nasal 2.5L Cannula Intake & Output 10/19 1600 10/19 0800 10/19 0000 10/18 1600 10/18 0800 10/18 0000 Intake Total 100 275 Output Total 275 250 Balance -175 25 Intake, IV 100 Intake, Oral 100 175 Output, Urine 275 250 Patient 128 lb 120 lb Weight Weight Bed scale Estimated Measurement Method Physical Exam: No distress HEENT exam normal Chest decreased breath sounds Heart regular rhythm, no murmurs No peripheral edema Current Medications: Current Medications Sig/Bill Start time Last Medication Dose Route Stop Time Status Admin Acetaminophen 1,000 MG Q6P PRN 10/18 2115 AC 10/18 N/A 1 UNIT IV 2245 Acetaminophen 1,000 MG ONCE ONE 10/18 1715 DC 10/18 N/A 1 UNIT IV 10/18 1729 1717 Acetaminophen 0 .STK-MED ONE 10/18 1642 DC IV Acetaminophen 0 .STK-MED ONE 10/18 1234 DC IV Acetaminophen 1,000 MG ONCE ONE 10/18 1230 DC 10/18 N/A 1 UNIT IV 10/18 1244 1240 Albuterol Sulfate 3 ML TID 10/18 2100 AC 10/19 INH 0901 Albuterol Sulfate 3 ML ONCE ONE 10/18 1100 DC 10/18 INH 10/18 1101 1129 Docusate Sodium 100 MG QPM 10/18 2100 AC 10/18 PO 2048 Enoxaparin Sodium 40 MG DAILY 10/19 0900 AC SC Famotidine 20 MG ONCE ONE 10/18 1900 DC 10/18 PO 10/18 1901 1953 Ipratropium [place] 2.5 ML TID 10/18 2100 AC 10/18 INH 2136 Ipratropium [place] 2.5 ML ONCE ONE 10/18 1100 DC 10/18 INH 10/18 1101 1128 Lorazepam 1 MG QPM 10/18 2100 AC 10/18 PO 2223 Multivitamins 1 TAB DAILY 10/19 0900 CAN PO Omeprazole 20 MG DAILY PRN 10/18 1530 AC 10/19 PO 0828 Ondansetron HCl 4 MG ONCE PRN 10/18 1630 AC 10/18 IV 1634 Ondansetron HCl 0 .STK-MED ONE 10/18 1234 DC .ROUTE Ondansetron HCl 4 MG ONCE ONE 10/18 1230 DC 10/18 IV 10/18 1231 1240 Verapamil HCl 40 MG TID 10/18 1425 AC 10/19 PO 0930 Results Last 48 Hrs of Labs/Mics: Laboratory Tests 10/18/17 2230: Troponin I < 0.01 10/18/17 1630: Troponin I < 0.01 10/18/17 1307: Urinalysis HEAVY H, Urine Color YEL, Urine Clarity HAZY H, Urine pH 7.5, Ur Specific Effie 1.015, Urine Protein NEG, Urine Ketones NEG, Urine Nitrite NEG, Urine Bilirubin NEG, Urine Urobilinogen 0.2, Ur Leukocyte Esterase TRACE H, Ur Microscopic SEDIMENT EXAMINED, Urine RBC RARE, Urine WBC 1-3 H, Ur Epithelial Cells RARE, Urine Hemoglobin NEG, Urine Glucose NEG 10/18/17 1016: Anion Gap 5, Estimated GFR > 60, BUN/Creatinine Ratio 21.7, Glucose 107 H, Calcium 9.3, Magnesium 1.9, Total Bilirubin 0.8, AST 19, ALT 26, Alkaline Phosphatase 82, Troponin I < 0.01, Gbw-O-Ireonsgbdga Pept 146 H, Total Protein 6.2 L, Albumin 3.7, Globulin 2.5, Albumin/Globulin Ratio 1.5, PT 12.0, INR 1.10 , APTT 27, CBC w Diff NO MAN DIFF REQ, RBC 5.04, MCV 82.6, MCH 27.8, MCHC 33.6, RDW 13.3, MPV 7.6, Gran % 61.9, Lymphocytes % 30.8, Monocytes % 5.3, Eosinophils % 1.6, Basophils % 0.4, Absolute Granulocytes 4.2, Absolute Lymphocytes 2.1, Absolute Monocytes 0.4, Absolute Eosinophils 0.1, Absolute Basophils 0 Recent Imaging Studies: CONCLUSIONS Normal global left ventricular size, wall thickness, systolic function with no obvious regional wall motion abnormalities. Abnormal relaxation filling pattern of the left ventricle for age (stage 1 diastolic dysfunction). The left atrium is normal in size. Mild thickening/calcification of the mitral valve leaflets. Moderate mitral annular calcification. Focal thickening of the aortic valve cusps. No aortic stenosis. Right ventricular systolic pressure estimated to be elevated at 45- 50 mmHg. The aortic arch and great vessels are not well seen. Iggy Prakash M.D. (Electronically Signed) Final Date: 19 October 2017 17:42 Assessment/Plan Assessment/Plan Patience's initial EKG showed some nonspecific changes which have resolved. There is no evidence of myocardial ischemia, congestive heart failure, etc. I will review her echocardiogram when it is done. Telemetry can be discontinued and she is cleared for discharge from a cardiac standpoint pending the echo results. (See attached echo, no major abnormlaities). Continue telemetry? No
[2017-10-19] MEDS ORDERED: VERAPAMIL HCL40 M1 PO ×2 (13:55→20:20)
--- NOTE | 2017-10-19 13:56 | Patient Discharge Instructions ---
Discharge Instructions General Discharge Information You were seen/treated for: Unilateral headache/tingling and numbness of the lip EKG changes Special Instructions: Please follow-up with your PCP and shield operator within a week after discharge. Diet Continue normal diet: Yes Recommended Diet: Heart Healthy Activity Full Activity/No Limits: Yes Activity Self Limited: No Acute Coronary Syndrome Inclusion Criteria At DC or during hospital stay patient has or had the following: ACS DIAGNOSIS No Discharge Core Measures Meds if any: Prescribed or Continued at Discharge Meds if any: NOT Prescribed or Continued at Discharge Congestive Heart Failure Inclusion Criteria At DC or during hospital stay patient has or had the following: CHF DIAGNOSIS No Discharge Core Measures Meds if any: Prescribed or Continued at Discharge Meds if any: NOT Prescribed or Continued at Discharge Cerebrovascular accident Inclusion Criteria At DC or during hospital stay patient has or had the following: CVA/TIA Diagnosis No Discharge Core Measures Meds if any: Prescribed or Continued at Discharge Meds if any: NOT Prescribed or Continued at Discharge Venous thromboembolism Inclusion Criteria VTE Diagnosis No VTE Type NONE VTE Confirmed by (Test) NONE Discharge Core Measures - Per Current guidelines, there needs to be overlap - treatment for the first 5 days of Warfarin therapy. - If discharged on Warfarin prior to 5 days of - overlap therapy, the patient will need to be - assessed for post discharge needs including - *Post discharge parental anticoagulation - *Warfarin and/or parental anticoagulation education - *Follow up date to check INR post discharge At least 5 days overlap therapy as Inpatient No Meds if any: Prescribed or Continued at Discharge Note: Overlap Therapy is Warfarin and Anticoagulant Meds if any: NOT Prescribed or Continued at Discharge
[2017-10-19 15:02] VITALS: BP 130/70
--- NOTE | 2017-10-19 17:47 | ECHOCARDIOGRAM REPORT ---
PANKAJ MORALES Age: 77 : 1940 Gender: F Exam Date: 10/19/2017 10:56 Exam Location: [address] Ht (in): 59 Wt (lb): 120 BSA: 1.52 BP: 133 / 61 Ordering Physician: Corky Cordon MD Referring Physician: Corky Cordon MD Technologist: Yvan Carpenter [facility] Room Number: 189-2 Indications: Chest pain, unspecified, Shortness of breath Rhythm: Sinus Technical Quality: Fair FINDINGS Left Ventricle Normal global left ventricular size, wall thickness, systolic function with no obvious regional wall motion abnormalities. Left ventricular ejection fraction is estimated at >65 %. Abnormal relaxation filling pattern of the left ventricle for age (stage 1 diastolic dysfunction). Right Ventricle The right ventricle is normal in size and function. Right Atrium The right atrium is normal in size. Left Atrium The left atrium is normal in size. The interatrial septum is intact. Mitral Valve Mild thickening/calcification of the mitral valve leaflets. Moderate mitral annular calcification. No mitral regurgitation. Aortic Valve Focal thickening of the aortic valve cusps. No aortic stenosis. No aortic regurgitation. Tricuspid Valve Tricuspid valve is normal in structure and function. Mild tricuspid regurgitation. Right ventricular systolic pressure estimated to be elevated at 45-50 mmHg. Pulmonic Valve Pulmonic valve not well visualized, grossly normal. Trace pulmonic regurgitation. Pericardium Normal pericardium without effusion. No pleural effusion. Great Vessels Normal aortic root dimension. The aortic arch and great vessels are not well seen. CONCLUSIONS Normal global left ventricular size, wall thickness, systolic function with no obvious regional wall motion abnormalities. Abnormal relaxation filling pattern of the left ventricle for age (stage 1 diastolic dysfunction). The left atrium is normal in size. Mild thickening/calcification of the mitral valve leaflets. Moderate mitral annular calcification. Focal thickening of the aortic valve cusps. No aortic stenosis. Right ventricular systolic pressure estimated to be elevated at 45- 50 mmHg. The aortic arch and great vessels are not well seen. Iggy Prakash M.D. (Electronically Signed) Final Date: 19 October 2017 17:42 MEASUREMENTS (Male / Female) Normal Values 2D ECHO LV Diastolic Diameter PLAX 3.7 cm 4.2 - 5.9 / 3.9 - 5.3 cm LV Systolic Diameter PLAX 1.6 cm 2.1 - 4.0 cm LV Fractional Shortening PLAX 56.8 % 25 - 46 % LV Ejection Fraction 2D Teich 87.7 % IVS Diastolic Thickness 1.0 cm LVPW Diastolic Thickness 1.0 cm LV Relative Wall Thickness 0.5 RV Internal Dim ED PLAX 2.2 cm 1.9 - 3.8 cm LVOT Diameter 1.7 cm Aortic Root Diameter 2.6 cm LA Systolic Diameter LX 3.6 cm 3.0 - 4.0 / 2.7 - 3.8 cm LA Volume 23.0 cm 18 - 58 / 22 - 52 cm DOPPLER AV Peak Velocity 170.0 cm/s AV Peak Gradient 11.6 mmHg AV Mean Velocity 102.0 cm/s AV Mean Gradient 5.0 mmHg AV Velocity Time Integral 31.1 cm LVOT Peak Velocity 132.0 cm/s LVOT Peak Gradient 7.0 mmHg LVOT Mean Velocity 80.6 cm/s LVOT Mean Gradient 3.0 mmHg LVOT Velocity Time Integral 22.1 cm LVOT Stroke Volume 50.2 cm AV Area Cont Eq vti 1.6 cm AV Area Cont Eq pk 1.8 cm MV Peak Velocity 146.0 cm/s MV Peak Gradient 8.5 mmHg MV Mean Velocity 70.0 cm/s MV Mean Gradient 2.0 mmHg Mitral E Point Velocity 69.1 cm/s Mitral A Point Velocity 126.0 cm/s Mitral E to A Ratio 0.5 MV PHT Velocity 85.5 cm/s MV Deceleration [place] 257.0 cm/s MV Pressure Half Time 99.8 ms MV Area PHT 2.2 cm MV Deceleration Time 303.0 ms TR Peak Velocity 328.0 cm/s TR Peak Gradient 43.0 mmHg Right Atrial Pressure 5.0 mmHg Pulmonary Artery Systolic Pressure 48.0 mmHg Right Ventricular Systolic Pressure 48.0 mmHg PV Peak Velocity 119.5 cm/s PV Peak Gradient 5.7 mmHg PV Mean Velocity 85.0 cm/s PV Mean Gradient 3.0 mmHg PV Velocity Time Integral 23.8 cm LV E' Lateral Velocity 8.7 cm/s Mitral E to LV E' Lateral Ratio 8.0 LV E' Septal Velocity 5.9 cm/s Mitral E to LV E' Septal Ratio 11.6
--- NOTE | 2017-10-20 06:01 | Discharge Summary ---
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 She was also recently seen by her dentist for tooth extraction and denture placement. She is convinced these are all manifestations of Cradizem and thefore stopped taking the medicine. She was admitted to telemetry to monitor her for EKG changes. We did workup of her complaints including head CT which was negative for acute pathology and an ABG which only validated her chronic COPD. Echocardogram was negative for major abnormalities and nonspecific EKG changes resolved. Patient was stable, afebrile, on discharge. Head CT 10/18/17 IMPRESSION: 1. There are no acute bleeds or territorial infarcts. No masses are demonstrated. 2. There is mild diffuse volume loss and there are chronic microvascular ischemic changes. Echocardiogram 10/18/17 CONCLUSIONS Normal global left ventricular size, wall thickness, systolic function with no obvious regional wall motion abnormalities. Abnormal relaxation filling pattern of the left ventricle for age (stage 1 diastolic dysfunction). The left atrium is normal in size. Mild thickening/calcification of the mitral valve leaflets. Moderate mitral annular calcification. Focal thickening of the aortic valve cusps. No aortic stenosis. Right ventricular systolic pressure estimated to be elevated at 45-50 mmHg. The aortic arch and great vessels are not well seen. Allergies: Coded Allergies: Iodinated Contrast- Oral and IV Dye (IODINATED CONTRAST MEDIA - IV DYE) ( Intermediate, HIVES, RASH 04/27/15) Penicillins (Intermediate, HIVES 04/27/15) Sulfa (Sulfonamide Antibiotics) (Intermediate, HIVES 04/27/15) methylprednisolone (Mild, "TOO MANY SIDE EFFECTS, HIGH SUGAR, LOOSE TEETH, NECK BONES" 04/27/15) Disposition Summary Disposition Principal Diagnosis: EKG Changes Additional Diagnosis: Tingling/Numbness in lips and left head Discharge Disposition: home or self care Discharge Instructions General Discharge Information Code Status: Full Code Patient's Diet: Regular Patient's Activity: Self Limited Follow-Up Instructions/Appts: Please follow-up with your PCP and furnace repairer within a week after discharge. Medications at Discharge Discharge Medications: Stop taking the following medications: Diltiazem HCl (Cardizem Cd) 240 MG CAP.ER.24H ORAL DAILY Diltiazem HCl (Diltiazem HCl) 30 MG TABLET ORAL DAILY as needed for HEART Qty = 30 Polyethylene Glycol 3350 (Miralax) 17 GRAM POWD.PACK ORAL DAILY as needed for CONSTIPATION Continue taking these medications: Lorazepam (Lorazepam) 1 MG TABLET 1 Tablet ORAL Every night Comments: Last Taken: 07/18/17 Time: 22:23 PM Lorazepam (Ativan) 0.5 MG TABLET 1 Tablet ORAL 2 x Daily as needed as needed for ANXIETY Comments: NOT GIVEN WHILE IN HOSPITAL Multivitamin (One Daily Multivitamin) 1 EACH TABLET 1 Tablet ORAL DAILY Comments: NOT GIVEN IN HOSPITAL Docusate Sodium (Colace) 100 MG CAPSULE 1 Capsule ORAL Every night Comments: Last Taken: 10/19/16 Time: 15:29 Budesonide/Formoterol Fumarate (Symbicort 160-4.5 Mcg Inhaler) 160 MCG-4.5 MCG/ ACTUATION HFA.AER.AD 2 Puff Inhale through mouth TWICE DAILY Comments: NOT GIVEN IN HOSPITAL Sennosides/Docusate Sodium (Senna-Docusate Sodium Tablet) 8.6 MG-50 MG TABLET 1 Tablet ORAL Every night Comments: NOT GIVEN IN HOSPITAL Benzonatate (Benzonatate) 100 MG CAPSULE 1 Capsule ORAL 2 x Daily as needed as needed for COUGH Ergocalciferol (Vitamin D2) (Vitamin D2) 50,000 UNIT CAPSULE 1 Capsule ORAL Once a Week Qty = 4 Comments: NOT GIVEN IN HOSPITAL Furosemide (Furosemide) 20 MG TABLET 1 Tablet ORAL DAILY as needed for WATER PILL Comments: NOT GIVEN IN HOSPITAL Ipratropium/Albuterol Sulfate (Iprat-Albut 0.5-3(2.5) MG/3 Ml) 0.5 MG-3 MG (2.5 MG BASE)/3 ML AMPUL.NEB 1 Inhalation ORAL 4 TIMES A DAY Qty = 270 Comments: Last Taken: 10/19/17 Time: 19:20 PM Omeprazole (Omeprazole) 20 MG CAPSULE.DR 1 Capsule ORAL DAILY as needed for ACID Comments: Last Taken: 10/19/17 Time: 08:28 AM Sucralfate (Sucralfate) 1 GRAM/10 ML ORAL.SUSP 1 Gram ORAL DAILY Qty = 1 Instructions: GIVE 1/2 HOUR PRIOR TO PREDINSONE DOSE Comments: NOT GIVEN IN HOSPITAL Prednisone (Prednisone) 1 MG TABLET 4 Tablet ORAL DAILY Comments: NOT GIVEN IN HOSPITAL Simvastatin (Simvastatin*) 10 MG TABLET 1 Tablet ORAL Every night Comments: NOT GIVEN IN HOSPITAL Start taking the following new medications: Verapamil Hydrochloride (Verapamil HCl) 40 MG TABLET 1 Tablet ORAL THREE TIMES DAILY Qty = 270 No Refills Instructions: .. Comments: Last Taken: 10/19/17 Time: 13:16 PM
== END 2017-10-19 21:03 | DRG 92 ==
LOC: ERH 09:47 → ERHI 12:22 → 1NO 12:22 → ENRESERV 13:30 → ENTRNSPT 15:35 → 1NO 15:55 → CMPTRNSPT 16:06 → ENTRNSPT 10-19 20:27 → ENPENDDIS 10-19 20:27 → EDTRNSPT 10-19 20:42 → EDTRNSPTSTS 10-19 20:42 → CMPTRNSPT 10-19 20:52 → 1NO 10-19 21:03
PROVIDERS: Physician Assistant
DX: R20.2 Paresthesia of skin (principal); J96.12 Chronic respiratory failure with hypercapnia; I50.32 Chronic diastolic (congestive) heart failure; R42 Dizziness and giddiness; T46.1X5A Adverse effect of calcium-channel blockers, initial encounter; J44.9 Chronic obstructive pulmonary disease, unspecified; Z99.81 Dependence on supplemental oxygen; R00.0 Tachycardia, unspecified; I11.0 Hypertensive heart disease with heart failure; I27.20 Pulmonary hypertension, unspecified; Z87.891 Personal history of nicotine dependence; Z79.52 Long term (current) use of systemic steroids; Z90.2 Acquired absence of lung [part of]; G47.33 Obstructive sleep apnea (adult) (pediatric); E78.5 Hyperlipidemia, unspecified; Z88.0 Allergy status to penicillin; Z88.2 Allergy status to sulfonamides; Z88.8 Allergy status to other drugs, medicaments and biological substances; Z91.041 Radiographic dye allergy status; R94.31 Abnormal electrocardiogram [ECG] [EKG]; F32.9 Major depressive disorder, single episode, unspecified; F41.9 Anxiety disorder, unspecified; K21.9 Gastro-esophageal reflux disease without esophagitis; G47.00 Insomnia, unspecified
CPT/HCPCS: 1NSP; 36415; 36592; 81001; 93005; 93010; 93306; J0131; J1650; J2405